=== PATIENT | female | born 1955 | race Caucasian/White ===

== ENCOUNTER 2021-12-21 08:43 | Outpatient (REF) | payer OTHER, SELFPAY ==
--- NOTE | ~2021-12-21 | MM_ITS ---
EXAMINATION: MM SCREENING DIGITAL BREAST TOMOSYNTHESIS, BILATERAL CLINICAL INFORMATION: Screening. Asymptomatic. The lifetime risk of breast cancer based on the Tyrer-Cuzick Model is 4.3%. COMPARISON: Mammography: None TECHNIQUE: Digital breast tomosynthesis is performed in both the craniocaudal and mediolateral oblique views along with computer-aided detection (CAD). Synthesized 2D images are generated from the tomosynthesis. FINDINGS: There are scattered areas of fibroglandular density (ACR BI-RADS breast composition Category b). About the upper outer aspect of the left breast approximately 6 cm from the nipple there is an approximately 4 x 3 mm circumscribed density for which ultrasound is recommended. No suspicious dominant mass or clustered microcalcifications are identified within the right breast. MM/MM tomosynthesis screening BI IMPRESSION: Left breast density for which ultrasound is recommended. ASSESSMENT: BI-RADS 0: Incomplete - Need Additional Imaging Evaluation. RECOMMENDATION: Ultrasound upper outer aspect of the left breast. Radiology department staff will contact the patient for additional imaging.
== END 2021-12-21 08:44 | disposition home or self-care (01) ==
LOC: HO.MAMMO 08:43
PROVIDERS: Visit Provider Obstetrics & Gynecology
DX: Z12.31 Encounter for screening mammogram for malignant neoplasm of breast (principal)
CPT/HCPCS: 77063; 77067

== ENCOUNTER 2022-01-01 12:42 | Outpatient (REF) | payer OTHER, SELFPAY ==
--- NOTE | ~2022-01-01 | US_ITS ---
EXAMINATION: US DIAGNOSTIC ULTRASOUND BREAST, LEFT CLINICAL INFORMATION: Tiny circumscribed nodule mid upper outer left breast on screening mammography. TC score 4%. COMPARISON: Mammography 12/21/2021. TECHNIQUE: Ultrasound of the upper outer left breast is performed using grayscale imaging and color Doppler without and with harmonics. FINDINGS: There is a tiny benign intramammary node corresponding to the finding on mammography upper-outer left breast 2:00 position 6 cm from nipple measuring just under 4 mm. This shows normal sadia architecture and normal sadia color flow pattern. Remainder of the targeted area shows no cystic or solid mass or architectural abnormality. Results are discussed with the patient at time of visit. US/US breast LT limited IMPRESSION: Incidental small intramammary node upper outer left breast corresponding to recent mammography. ASSESSMENT: BI-RADS 2: Benign RECOMMENDATION: Routine annual mammography screening. This patient's information was entered into a reminder system with a target due date for their next mammogram.
== END 2022-01-01 12:43 | disposition home or self-care (01) ==
LOC: HO.MAMMO 12:42
PROVIDERS: Visit Provider Obstetrics & Gynecology
DX: N63.21 Unspecified lump in the left breast, upper outer quadrant (principal)
CPT/HCPCS: 76642

== ENCOUNTER 2022-12-27 09:39 | Outpatient (REF) | payer OTHER, SELFPAY ==
--- NOTE | ~2022-12-27 | MM_ITS ---
EXAMINATION: MM SCREENING DIGITAL BREAST TOMOSYNTHESIS, BILATERAL CLINICAL INFORMATION: Screening. Asymptomatic. The lifetime risk of breast cancer based on the Tyrer-Cuzick Model is 4%. COMPARISON: Mammography: 12/21/2021, outside mammography 10/11/2020, 10/10/2019, 09/23/2018 ([facility], [place], [place]). TECHNIQUE: Digital breast tomosynthesis is performed in both the craniocaudal and mediolateral oblique views along with computer-aided detection (CAD). Synthesized 2D images are generated from the tomosynthesis. FINDINGS: There are scattered areas of fibroglandular density (ACR BI-RADS breast composition Category b). The left breast is similar to prior studies. There is small intramammary node again seen mid upper outer left breast. No developing density. Neither breast shows abnormal calcifications. The bilateral axilla and skin contours are unremarkable. Right breast has scattered parenchymal asymmetries central outer anterior breast, more conspicuous on current study, likely related to shifting fibroglandular tissue. Patient will be recalled for additional imaging to exclude developing density. MM/MM tomosynthesis screening BI IMPRESSION: Right: -Scattered parenchymal asymmetries anterior central outer breast, likely shifting fibroglandular tissue related to positioning. Left: -No mammographic evidence of malignancy. ASSESSMENT: BI-RADS 0: Incomplete - Need Additional Imaging Evaluation RECOMMENDATION: 1. Additional views right breast (spot CC, spot MLO, standard ML). 2. Targeted ultrasound if warranted after review of the additional views. 3. Radiology department staff will contact the patient for additional imaging. This patient's information was entered into a reminder system with a target due date for their next mammogram.
== END 2022-12-27 09:40 | disposition home or self-care (01) ==
LOC: HO.MAMMO 09:39
PROVIDERS: PCP Internal Medicine Hypertension Specialist; Visit Provider Internal Medicine Hypertension Specialist
DX: Z12.31 Encounter for screening mammogram for malignant neoplasm of breast (principal)
CPT/HCPCS: 77063; 77067

== ENCOUNTER 2023-01-01 09:08 | Outpatient (REF) | payer OTHER, SELFPAY ==
--- NOTE | ~2023-01-01 | MM_ITS ---
EXAMINATION: MM DIAGNOSTIC DIGITAL BREAST TOMOSYNTHESIS, RIGHT CLINICAL INFORMATION: Recall from screening for scattered parenchymal asymmetries anterior central outer right breast, likely shifting fibroglandular tissue related to positioning. COMPARISON: Prior mammography exams, most recent 12/27/2022. TECHNIQUE: Digital breast tomosynthesis is performed. 2D images are generated from the tomosynthesis. The following views are obtained: Spot CC, spot MLO, standard ML. FINDINGS: There are scattered areas of fibroglandular density (ACR BI-RADS breast composition Category b). The additional views show no interval mass or architectural abnormality or developing density. There are no significant changes from prior studies. Results are discussed with the patient at time of visit. MM/MM tomosynthesis added views R IMPRESSION: Additional views show no significant changes from prior studies. ASSESSMENT: BI-RADS 2: Benign RECOMMENDATION: Routine annual mammography screening. This patient's information was entered into a reminder system with a target due date for their next mammogram.
== END 2023-01-01 09:09 | disposition home or self-care (01) ==
LOC: HO.MAMMO 09:08
PROVIDERS: PCP Internal Medicine; Visit Provider Internal Medicine
DX: R92.8 Other abnormal and inconclusive findings on diagnostic imaging of breast (principal)
CPT/HCPCS: 77061; 77065

== ENCOUNTER 2023-12-31 10:05 | Outpatient (REF) | payer OTHER, SELFPAY | END 2023-12-31 10:06 | disposition home or self-care (01) | LOC: HO.MAMMO 10:05 | PROVIDERS: PCP Internal Medicine; Visit Provider Internal Medicine Hypertension Specialist | DX: Z12.31 Encounter for screening mammogram for malignant neoplasm of breast (principal) | CPT/HCPCS: 77063; 77067 ==

== ENCOUNTER → 2023-12-31 10:30 | Outpatient (BNV) | payer OTHER, SELFPAY | PROVIDERS: PCP Internal Medicine; Visit Provider Radiology Diagnostic Radiology | DX: Z12.31 Encounter for screening mammogram for malignant neoplasm of breast (principal) | CPT/HCPCS: 77063; 77067 ==

== ENCOUNTER 2024-05-27 15:39 | Outpatient (AMB) | payer OTHER, SELFPAY ==
[2024-05-27 15:55] VITALS: BP 130/63; PULSE 67; RESP 13; O2SAT 98
--- NOTE | 2024-05-27 15:55 | A.OFFPC_ITS ---
Vital Signs 05/27/24 15:55 Height 5 ft 2.5 in BP 130/63 Blood Pressure Location Rt brachial Position Sitting Respiration 13 Pulse 67 Pulse Source Pulse Oximeter Pulse Oximetry (%) 98 Oxygen Delivery Method Room Air Intake Visit Reasons: Annual PH Intake Note: Patient reports she is here to transfer from [facility] to [facility] [place]. Patient would like to discuss allergies. 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 Required: No Accompanied by: Self / Same As Patient Allergies losartan [From Cozaar] Allergy (Unknown, Verified 05/27/24 12:56) Unknown Tobacco use date assessed: 05/27/24 Fall risk assessment: No Falls in past year Last assessed Fall Risk: 05/27/24 Dental Screening Dental Screen Date: 05/27/24 Did you have a dental visit in the last 12 months?: Yes Did you have a dental problem in the last 6 months where you did not have access to dental care?: No Was dental information given to patient?: Patient has dentist HPI HPI Comments History of Present Illness Details The patient is a 68 year old female with a past medical history of hypertension, CKD stage 2, osteopenia, hld, borderline abnormal TFTs, presenting for follow up Hypertension: On hctz 12.5 mg daily Allergies/RAD: stable. Doing well on zyrtec. Required azithromycin, prednisone, albuterol in February. DXA 06/2023. Previously took fosamax ROS CONSTITUTIONAL: Denies weight loss, fever and chills. HEENT: Denies changes in vision and hearing. RESPIRATORY: Denies SOB and cough. CV: Denies palpitations and CP GI: Denies abdominal pain, nausea, vomiting and diarrhea. : Denies dysuria and urinary frequency. MSK: Denies new myalgia and joint pain. SKIN: Denies rash and pruritus. NEUROLOGICAL: Denies headache PSYCHIATRIC: Denies recent changes in mood. PHYSICAL EXAM: GENERAL: Alert and oriented x 3. NAD EYES: EOMI. Anicteric. HENT: Moist mucous membranes. No scleral icterus. No cervical lymphadenopathy. LUNGS: Clear to auscultation bilaterally. CARDIOVASCULAR: Regular rate and rhythm. No murmur. No JVD. ABDOMEN: Soft, non-tender +bs EXTREMITIES: No edema. Non-tender. SKIN: No rashes or lesions. Warm. NEUROLOGIC: No focal neurological deficits. CN II-XII grossly intact PSYCHIATRIC: Cooperative. Appropriate mood and affect [facility] Medical History Benign fibromatous neoplasm of skin Osteopenia Kidney failure Hypertension Chronic kidney disease Surgical History History of surgical removal of skin lesion Family History Mother Alcoholism Father Dementia Hypertension Cardiovascular disease Sister Hypertension Sister Hypertension Social History Household Members: Children and Other Household Members Other:: 2 Grandchildren Housing: House Patient Tobacco Use Status: Never used Tobacco e-Cigarette/Vaping Use: Never Used service: No Current occupational status: retired Cognitive needs: No Hearing needs: No Vision needs: No Questionnaire PHQ-9 Over the last 2 weeks, how often have you been bothered by any of the following problems? 1. Little interest or pleasure in doing things: not at all 2. Feeling down, depressed, or hopeless: not at all 3. Trouble falling or staying asleep, or sleeping too much: not at all 4. Feeling tired or having little energy: not at all 5. Poor appetite or overeating: not at all 6. Feeling bad about yourself - or that you are a failure or have let yourself or your family down: not at all 7. Trouble concentrating on things, such as reading the newspaper or watching television: not at all 8. Moving or speaking so slowly that other people could have noticed. Or the opposite - being so fidgety or restless that you have been moving around a lot more than usual: not at all 9. Thoughts that you would be better off or of hurting yourself in some way: not at all Total score: 0 Depression Screening Interpretation: Negative (neg) Depression Screening Done: Yes 11940 - PHQ-9 Billing: Yes Source: Developed by Drs. Hector Presley, Ann Rivers, Herve Jackson and colleagues, with an educational dallas from [employer]. Thrive Questionnaire Date Thrive assessed: 05/27/24 I am a: Patient What is your living situation today?: I have a steady place to live Within the past 12 months, did the food you bought not last and you didn't have the money to get more?: Never true Within the past 12 months, did you worry whether your food would run out before you got money to buy more?: Never true Do you have trouble paying for medicines?: No Do you have trouble getting transportation to medical appointments?: No Do you have trouble paying your heating and electricity bill?: No Do you have trouble taking care of your child, family member or friend?: No Do you have trouble with day-to-day activities such as bathing, preparing meals, shopping, managing finances, etc.?: No Are you currently unemployed and looking for a job?: No Are you interested in more education?: No Please select the resources that you would like help with: None Currently or been in a relationship where the following occur: No concerns reported THRIVE Score: 0 AUDIT C Alcohol Use Questionnaire (AUDIT-C) 1. How often do you have a drink containing alcohol?: Never 3. How often do you have six or more drinks on one occasion?: Never Total Score: 0 DIONE-7 AMB Questionnaire DIONE-7 Date DIONE - 7 assessed: 05/27/24 Feeling nervous, anxious, or on edge: 0 = Not at all Not being able to stop or control worryin = Not at all Worrying too much about different things: 0 = Not at all Trouble relaxin = Not at all Being so restless that it is hard to sit still: 0 = Not at all Becoming easily annoyed or irritable: 0 = Not at all Feeling afraid as if something awful might happen: 0 = Not at all Total DIONE-7 score (0-4 normal; 5-9 mild; 10-14 moderate; 15-21 severe): 0 Source: Developed by Drs. Hector Presley, Ann Rivers, Herve Jackson and colleagues, with an educational dallas from [employer]. DIONE-7 Assessment Billing DIONE-7 Assessment Tool: DIONE-7 Assessment 67275 Physical exam (Primary Care) Vital Signs: Last Vital Signs Pulse 67 05/27/24 15:55 Resp 13 05/27/24 15:55 BP 130/63 05/27/24 15:55 Pulse Ox 98 05/27/24 15:55 Oxygen Delivery Method Room Air 05/27/24 15:55 Tobacco/Smoking Status: Tobacco use Status Tobacco use date assessed 05/27/24 05/27/24 16:07 Patient Tobacco Use Status Never used Tobacco 05/27/24 16:07 e-Cigarette/Vaping Use Never Used 05/27/24 16:07 PHQ-9: PHQ-9 Score PHQ-9: Total score 0 05/29/24 05:03 Depression Screening Interpretation: Negative (neg) Thrive Assessment: Date of Thrive Assessment Date Thrive assessed 05/27/24 05/27/24 16:07 Currently or been in a relationship where the following occur: No concerns reported Assessment and Plan Assessment & Plan (1) Chronic kidney disease: Code(s): N18.9 - Chronic kidney disease, unspecified Qualifiers: Chronic kidney disease stage: stage 2 (mild) Qualified Code(s): N18.2 - Chronic kidney disease, stage 2 (mild) (2) Hypertension: Code(s): I10 - Essential (primary) hypertension Qualifiers: Hypertension type: primary hypertension Qualified Code(s): I10 - Essential (primary) hypertension Plan: adequately controlled on current medication Plan Check labs Orders: Orders Complete Blood Count Auto Diff 05/27/24 I10 - Essential (primary) hypertension, N18.9 - Chronic kidney disease, unspecified, R94.6 - Abnormal results of thyroid function studies Comprehensive Met. Panel 05/27/24 I10 - Essential (primary) hypertension, N18.9 - Chronic kidney disease, unspecified, R94.6 - Abnormal results of thyroid function studies TSH reflex Free T4 05/27/24 I10 - Essential (primary) hypertension, N18.9 - Chronic kidney disease, unspecified, R94.6 - Abnormal results of thyroid function studies Medications: New albuterol sulfate 90 mcg/actuation 1 inh inhalation .every 4 hours PRN 8.5 grams 2RF shortness of breath or wheezing 30 days fluticasone propionate 50 mcg/actuation (Allergy Relief (fluticasone)) administer into each nostril 1 spray intranasal BID 16 grams 0RF hydrochlorothiazide 12.5 mg PO DAILY 90 caps 3RF Coding Level of Care Code Est Pt Level 4 (34582) Complex EM visit Add On G2211 Diagnoses Stage 2 chronic kidney disease N18.2 Chronic kidney disease stage: stage 2 (mild) Primary hypertension I10 Hypertension type: primary hypertension Additional Codes DIONE-7 Assessment Billing - DIONE-7 Assessment Tool: DIONE-7 Assessment 36053 ([id number])
== END 2024-05-27 16:37 | disposition home or self-care (01) ==
PROVIDERS: PCP Internal Medicine; Visit Provider Internal Medicine
DX: I12.9 Hypertensive chronic kidney disease with stage 1 through stage 4 chronic kidney disease, or unspecified chronic kidney disease (principal); N18.2 Chronic kidney disease, stage 2 (mild)
CPT/HCPCS: 99214; G2211

== ENCOUNTER 2024-06-03 11:19 | Outpatient (REF) | payer OTHER, SELFPAY ==
[2024-06-03 14:51] LABS: MANUAL DIFF FLAG NO
[2024-06-03 14:53] LABS: Basophils Absolute Auto 0.1 X10*3/uL (0.0-0.2); Basophils Percent Auto 0.9 % (0-2); Eosinophils Absolute Auto 0.5 X10*3/uL (0.0-0.4); Hematocrit 39.8 % (37.0-47.0); Imm Gran Abs Auto 0.02 X10*3/uL (0.00-0.03); Imm Gran Pct Auto 0.2 % (0.0-0.4); Lymphocytes Absolute Auto 3.2 X10*3/uL (1.2-4.9); Lymphocytes Percent Auto 34.9 % (20-40); Mean Corpuscular HGB Conc 32.7 g/dl (31.0-35.0); Mean Corpuscular Hemoglobin 27.8 pg (27.0-33.0); Mean Corpuscular Volume 85.2 fL (80.0-98.0); Mean Platelet Volume 9.7 fL (9.4-12.3); Monocytes Absolute Auto 0.6 X10*3/uL (0.1-1.2); Monocytes Percent Auto 6.8 % (2-11); Neutrophils Absolute Auto 4.7 x10*3/uL (2.0-8.3); Neutrophils Percent Auto 52.2 % (45-73); Platelet Count 398 X10*3/uL (160-400); Red Blood Count 4.67 X10*6/uL (4.20-5.50); Red Cell Distribution Width 13.4 % (11.0-16.0)
[2024-06-03 15:28] LABS: Alanine Aminotransferase 12 U/L (0-31); Albumin Level 4.3 g/dL (3.5-5.0); Alkaline Phosphatase 81 U/L (39-117); Anion Gap 14 (12-20); Aspartate Amino Transferase 18 U/L (5-31); Bilirubin Total 0.3 mg/dL (0.0-1.0); Blood Urea Nitrogen 21 mg/dL (9-16); Calcium 10.5 mg/dL (8.4-10.2); Carbon Dioxide 26 mmol/L (22-29); Chloride 103 mmol/L (96-108); Estimated Glomerular Filt Rate 42; Glucose Random 97 mg/dL (60-115); Sodium 139 mmol/L (135-145); Total Protein 7.8 g/dL (6.5-8.0)
[2024-06-03 15:36] LABS: TSH reflex Free T4 3.11 uIU/mL (0.32-4.0)
== END 2024-06-03 11:20 | disposition home or self-care (01) ==
LOC: HO.WFDLDS 11:19
PROVIDERS: Visit Provider Internal Medicine
DX: I12.9 Hypertensive chronic kidney disease with stage 1 through stage 4 chronic kidney disease, or unspecified chronic kidney disease (principal); R94.6 Abnormal results of thyroid function studies; N18.9 Chronic kidney disease, unspecified
CPT/HCPCS: 36415; 80053; 84443; 85025

== ENCOUNTER 2024-12-13 15:50 | Outpatient (AMB) | payer OTHER, SELFPAY ==
--- NOTE | 2024-12-13 15:58 | MHC.PC.OV ---
Vital Signs 12/13/24 16:03 Height 5 ft 2.5 in Weight 143 lb BMI 25.7 BP 126/74 Blood Pressure Location Rt brachial Position Sitting Respiration 12 Pulse 69 Pulse Source Pulse Oximeter Pulse Oximetry (%) 99 Oxygen Delivery Method Room Air Intake Visit Reasons: AWV Intake Note: Medicare wellness visit Track Manager Required: No Allergies losartan [From Cozaar] Allergy (Unknown, Verified 12/13/24 16:02) Unknown Tobacco use date assessed: 12/13/24 Fall risk assessment: 1 Fall in past year (fell on the ice) Last assessed Fall Risk: 12/13/24 Dental Screening Dental Screen Date: 05/27/24 HPI HPI Comments History of Present Illness Details The patient is a 69 year old female with a past medical history of hypertension, CKD stage 2, osteopenia, hld, borderline abnormal TFTs, presenting for MWV Hypertension: On hctz 12.5 mg daily Allergies/RAD: stable on prn albuterol. Doing well on zyrtec. Required azithromycin, prednisone, albuterol in February. DXA 06/2023. Previously took fosamax. 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 HEENT: Denies changes in vision and hearing. RESPIRATORY: Denies SOB and cough. CV: Denies palpitations and CP GI: Denies abdominal pain, nausea, vomiting and diarrhea. : Denies dysuria and urinary frequency. MSK: Denies new myalgia and joint pain. SKIN: Denies rash and pruritus. NEUROLOGICAL: Denies headache PSYCHIATRIC: Denies recent changes in mood. PHYSICAL EXAM: GENERAL: Alert and oriented x 3. NAD EYES: EOMI. Anicteric. HENT: Moist mucous membranes. No scleral icterus. No cervical lymphadenopathy. LUNGS: Clear to auscultation bilaterally. CARDIOVASCULAR: Regular rate and rhythm. No murmur. No JVD. ABDOMEN: Soft, non-tender +bs EXTREMITIES: No edema. Non-tender. SKIN: No rashes or lesions. Warm. NEUROLOGIC: No focal neurological deficits. CN II-XII grossly intact PSYCHIATRIC: Cooperative. Appropriate mood and affect [facility] Medical History Benign fibromatous neoplasm of skin Osteopenia Kidney failure Hypertension Chronic kidney disease Surgical History History of surgical removal of skin lesion Family History Mother Alcoholism Father Dementia Hypertension Cardiovascular disease Sister Hypertension Sister Hypertension Social History Household Members: Children and Other Household Members Other:: 2 Grandchildren Housing: House Alcohol intake: current Patient Tobacco Use Status: Never used Tobacco e-Cigarette/Vaping Use: Never Used service: No Current occupational status: retired Cognitive needs: No Hearing needs: No Vision needs: No Questionnaire PHQ-9 Over the last 2 weeks, how often have you been bothered by any of the following problems? 1. Little interest or pleasure in doing things: not at all 2. Feeling down, depressed, or hopeless: not at all 3. Trouble falling or staying asleep, or sleeping too much: not at all 4. Feeling tired or having little energy: not at all 5. Poor appetite or overeating: not at all 6. Feeling bad about yourself - or that you are a failure or have let yourself or your family down: not at all 7. Trouble concentrating on things, such as reading the newspaper or watching television: not at all 8. Moving or speaking so slowly that other people could have noticed. Or the opposite - being so fidgety or restless that you have been moving around a lot more than usual: not at all 9. Thoughts that you would be better off or of hurting yourself in some way: not at all Total score: 0 Depression Screening Interpretation: Negative Depression Screening Done: Yes 35273 - PHQ-9 Billing: Yes Source: Developed by Drs. Hector Presley, Ann Rivers, Herve Jackson and colleagues, with an educational dallas from [employer]. Thrive Questionnaire Date Thrive assessed: 12/06/24 I am a: Patient What is your living situation today?: I have a steady place to live Within the past 12 months, did the food you bought not last and you didn't have the money to get more?: Never true Within the past 12 months, did you worry whether your food would run out before you got money to buy more?: Never true Do you have trouble paying for medicines?: No Do you have trouble getting transportation to medical appointments?: No Do you have trouble paying your heating and electricity bill?: No Do you have trouble taking care of your child, family member or friend?: No Do you have trouble with day-to-day activities such as bathing, preparing meals, shopping, managing finances, etc.?: No Are you currently unemployed and looking for a job?: No Are you interested in more education?: No Please select the resources that you would like help with: None Currently or been in a relationship where the following occur: No concerns reported THRIVE Score: 0 AUDIT C Alcohol Use Questionnaire (AUDIT-C) 1. How often do you have a drink containing alcohol?: Never 2. How many drinks containing alcohol do you have on a typical day when you are drinking?: 1 or 2 3. How often do you have six or more drinks on one occasion?: Never Total Score: 0 DIONE-7 AMB Questionnaire DIONE-7 Date DIONE - 7 assessed: 12/13/24 Feeling nervous, anxious, or on edge: 0 = Not at all Not being able to stop or control worryin = Not at all Worrying too much about different things: 0 = Not at all Trouble relaxin = Not at all Being so restless that it is hard to sit still: 0 = Not at all Becoming easily annoyed or irritable: 0 = Not at all Feeling afraid as if something awful might happen: 0 = Not at all Total DIONE-7 score (0-4 normal; 5-9 mild; 10-14 moderate; 15-21 severe): 0 Source: Developed by Drs. Hector Presley, Ann Rivers, Herve Jackson and colleagues, with an educational dallas from [employer] DIONE-7 Assessment Billing DIONE-7 Assessment Tool: DIONE-7 Assessment 48653 Physical exam (Primary Care) Vital Signs: Last Vital Signs Pulse 69 12/13/24 16:03 Resp 12 12/13/24 16:03 BP 126/74 12/13/24 16:03 Pulse Ox 99 12/13/24 16:03 Oxygen Delivery Method Room Air 12/13/24 16:03 BMI result Body Mass Index 25.7 Tobacco/Smoking Status: Tobacco use Status Tobacco use date assessed 12/13/24 12/13/24 16:09 Patient Tobacco Use Status Never used Tobacco 12/13/24 16:16 e-Cigarette/Vaping Use Never Used 12/13/24 16:16 PHQ-9: PHQ-9 Score PHQ-9: Total score 0 12/13/24 16:17 Depression Screening Interpretation: Negative Thrive Assessment: Date of Thrive Assessment Date Thrive assessed 12/06/24 12/13/24 16:00 Currently or been in a relationship where the following occur: No concerns reported Coding Level of Care Code Est Pt Level 4 (79085) Diagnoses Encounter for annual wellness visit (AWV) in Medicare patient Z00.00 Primary hypertension I10 Hypertension type: primary hypertension Additional Codes DIONE-7 Assessment Billing - DIONE-7 Assessment Tool: DIONE-7 Assessment 61742 ([id number]) PHQ-9 - 36604 - PHQ-9 Billing: Yes ([id number]) Assessment & Plan Assessment & Plan (1) Encounter for annual wellness visit (AWV) in Medicare patient: Code(s): Z00.00 - Encounter for general adult medical examination without abnormal findings Category: Medical Plan: see HPI No concerns identified for AWV (2) Hypertension: Code(s): I10 - Essential (primary) hypertension Category: Medical Qualifiers: Hypertension type: primary hypertension Qualified Code(s): I10 - Essential (primary) hypertension Plan: continue current medications Low salt diet Orders: Orders XR DEXA axial skeleton 6 Months M85.80 - Other specified disorders of bone density and structure, unspecified site Complete Blood Count Auto Diff 12/13/24 I10 - Essential (primary) hypertension, M85.80 - Other specified disorders of bone density and structure, unspecified site, N18.2 - Chronic kidney disease, stage 2 (mild), Z13.0 - Encounter for screening for diseases of the blood and blood-forming organs and certain disorders involving the immune mechanism Hemoglobin A1c 12/13/24 I10 - Essential (primary) hypertension, M85.80 - Other specified disorders of bone density and structure, unspecified site, N18.2 - Chronic kidney disease, stage 2 (mild), Z13.0 - Encounter for screening for diseases of the blood and blood-forming organs and certain disorders involving the immune mechanism MM screening mammo BI 12/13/24 Z12.31 - Encounter for screening mammogram for malignant neoplasm of breast Comprehensive Met. Panel 12/13/24 I10 - Essential (primary) hypertension, M85.80 - Other specified disorders of bone density and structure, unspecified site, N18.2 - Chronic kidney disease, stage 2 (mild), Z13.0 - Encounter for screening for diseases of the blood and blood-forming organs and certain disorders involving the immune mechanism Lipid Panel 12/13/24 I10 - Essential (primary) hypertension, M85.80 - Other specified disorders of bone density and structure, unspecified site, N18.2 - Chronic kidney disease, stage 2 (mild), Z13.0 - Encounter for screening for diseases of the blood and blood-forming organs and certain disorders involving the immune mechanism TSH reflex Free T4 12/13/24 I10 - Essential (primary) hypertension, M85.80 - Other specified disorders of bone density and structure, unspecified site, N18.2 - Chronic kidney disease, stage 2 (mild), Z13.0 - Encounter for screening for diseases of the blood and blood-forming organs and certain disorders involving the immune mechanism Medications: Refilled albuterol sulfate 90 mcg/actuation 1 inh inhalation .every 4 hours 30 days PRN 8.5 grams 2RF shortness of breath or wheezing hydrochlorothiazide 12.5 mg PO DAILY 90 caps 3RF fluticasone propionate 50 mcg/actuation (Allergy Relief (fluticasone)) administer into each nostril 1 spray intranasal BID 16 grams 3RF
[2024-12-13 16:03] VITALS: BP 126/74; PULSE 69; RESP 12; O2SAT 99; BMI 25.7
--- OUTSIDE RECORDS SUMMARY | 2024-12-13 19:11 | XMS_ITS | Patient Health Record ---
[facility] Organization [facility] Address [address] [place] [address] [address] [place] [address] Care Team Providers Care Filler Room Attendant Name Role Phone Luna NGUYEN MD, YESSI Primary Care Provider PIERRE Tong Unavailable [phone] Allergies Allergen (clinical drug ingredient) Drug/Non Drug Allergy documented on EMR Reaction Allergy Type Onset Date Status losartan Cozaar Unknown Drug Allergy Active Reason For Referral No Information Medications Medication SIG (Take, Route, Frequency, Duration) Notes Start Date End Date Status Fluticasone Propionate 50 MCG/ACT 1 spray in each nostril Nasally As needed Prn Active hydroCHLOROthiazide 12.5 MG 1 capsule in the morning Orally Once a day for 30 day(s) Active Social History Tobacco Use: Social History Observation Description Date Details (start date - stop date) Never Smoker NA - NA Tobacco Use/Smoking Question Answer Notes Are you a nonsmoker Alcohol Screen (Audit-C) Question Answer Notes Did you have a drink containing alcohol in the p ast year? No Points 0 Interpretation Negative Sexual History Question Answer Notes Had sex in the past 12 months (vaginal, oral, or anal)? No Problems Problem Type SNOMED Code ICD Code Onset Dates Problem Status W/U Status Risk Notes Problem Essential hypertension (48790265) Essential (primary) hypertension (I10) Active confirmed Problem Chronic kidney disease stage 2 (877687423) Chronic kidney disease, stage 2 (mild) (N18.2) Active confirmed Problem COVID-19 (347285073) COVID-19 (U07.1) Active confirmed Plan Of Treatment Pending Test Test Name Order Date MM Digital Screening Mammogram 3D 2021 MM Digital Screening Mammogram 3D 2023 Insurance Providers Payer Name Payer Address Payer Phone Subscriber Number Group Number Insured Name Patient Relationship to Insured Coverage Start Date Coverage End Date [employer]ARE [address] [address] [place] [address] [id number] PPO ROBERT OBRIEN Self - patient is the insured Program [address] [address] [place] [address] [phone] [id number] ROBERT OBRIEN Self - patient is the insured MEDICARE [address] [facility] [place] [id number] ROBERT OBRIEN Self - patient is the insured Medical (General) History Medical History History ICD Code Essential (primary) hypertension I10 Chronic kidney disease, stage 2 (mild) N 18.2 COVID-19 U07.1 Surgical History Surgery Date(Month/Year) Colonoscopy 12/2020 Hospitalization History Reason Date(Month/Year) 2 Vaginal Deliveries
--- OUTSIDE RECORDS SUMMARY | 2024-12-13 19:11 | XMS_ITS | Data Portability ---
Author Organization [facility], [id number] Address [address] [place] [address] Assessment No assessment recorded. Plan of Treatment Reminders Order Date Submit Date Provider Last Modified By Organization Details Last Modified Time Details Appointments None recorded. Lab pap, IG + HPV - 2019 020 DBA_PATCH_ [id number] [facility] ([facility], [address] [place] [address], [address], 03:37:50 pap, IG + HPV 2017 018 DBA_PATCH_ [id number] [facility] ([facility], [address] [place] [address], [address], 03:36:07 Referral None recorded. Procedures None recorded. Surgeries None recorded. Imaging None recorded. Medication Orders alendronat e 70 mg tablet 2020 021 INTERFACE [id number], [address], [place], [place], [id number], 17:40:09 Patient TargetsNo targets recorded. Patient Instructions Encounter Date Encounter Id Patient Instructions Last Modified By Organization Details Last Modified Time 03/29/2019 [id number] preventing osteoporosis: care instructions [email or web address] Not available 03/29/2019 09:37:26 10/10/2019 [id number] breast self-exam : care instructions ndandrea Not available 10/10/2019 10:55:12 learning about breast cancer screening ndandrea Not available 10/10/2019 10:55:12 10/11/2020 [id number] breast self-exam : care instructions ndandrea Not available 10/11/2020 12:08:19 learning about breast cancer screening ndandrea Not available 10/11/2020 12:08:19 05/13/2021 [id number] preventing osteoporosis: care instructions ndandrea Not available 05/13/2021 13:05:47 Reason for Referral None Reported. Results Created Date Observation Date Name Description Value Unit Range Abnormal Flag Note LastModifiedBy Organization Detail LastModifiedTime 09/23/20 18 09/24/2018 pap, IG + HPV interpretati on NIL NEGAT DEANNE FOR INTRA EPITH ELIAL LESIO N AND MALIG SERGEY . Not Available [facility] ([facility]) [address] [place], [address], 09/27/2018 06:06:55 09/23/20 18 09/24/2018 pap, IG + HPV category: NIL Negat deanne for Intra epith elial Lesio n Not Available [facility] ([facility]) [address] [place], [address], 09/27/2018 06:06:55 09/23/20 18 09/24/2018 pap, IG + HPV adequacy: ENDO Satis facto ry for evalu ation . Endoc ervic al and/o r squam ous metap lasti c cells (endo cervi iraida compo nent) are prese nt. Not Available [facility] ([facility]) [address] [place], [address], 09/27/2018 06:06:55 09/23/20 18 09/24/2018 pap, IG + HPV clinician provided ICD10: Sherman gonzalez Z12.4 Not Available [facility] ([facility]) [address] [place], [address], 09/27/2018 06:06:55 09/23/20 18 09/24/2018 pap, IG + HPV performed by: Sherman mckeon, Cytot more gonzalez (ASCP ) Not Available [facility] ([facility]) [address] [facility], [place], [address], 09/27/2018 06:06:55 09/23/20 18 09/24/2018 pap, IG + HPV cytology history: Commen t Date LCA Speci men ID PAP Test Resul t HPV Test Resul t 09/17 348-G 74-00 11-0 83548 5 NIL 01175 1 N 09/15 347-G 74-00 40-0 53111 5 NIL [address] 1 P 09/15 347-G 74-00 40-0 49331 1 N 09/15 347-G 74-00 40-0 93411 2 N 08/27 327-G 74-00 43-0 08954 5 NIL [address] 1 N 08/13 317-G 74-00 12-0 65340 3 NIL 28861 3 N 07/24 293-G 74-00 34-0 43603 4 NIL Not Available [facility] ([facility]) [address] [facility], [place], [address], 09/27/2018 06:06:55 09/23/20 18 09/24/2018 pap, IG + HPV note: Commen t The Pap smear is a scree ross test desig ezequiel to aid in the detec tion of catie ligna nt and malig nant condi tions of the uteri ne cervi x. It is not a diagn ostic proce dure and shoul d not be used as the sole means of detec ting cervi iraida cance r. Both false -posi tive and false -nega tive repor ts do occur . Not Available [facility] ([facility]) [address] [place], [address], 09/27/2018 06:06:55 09/23/20 18 09/24/2018 pap, IG + HPV test methodology: Commen t This liqui d based ThinP rep(R ) pap test was scree ezequiel with the use of an image guide d systfrench m. Not Available [facility] ([facility]) [address] [facility] [place], [address], 09/27/2018 06:06:55 09/23/20 18 09/26/2018 pap, IG + HPV HPV aptima Negati ve negati ve This test detec ts fourt een high- risk HPV types (16/1 8/31/ 33/35 /39/4 5/ 51/52 /56/5 8/59/ 66/68 ) witho ut diffe renti ation . Not Available [facility] ([facility]) [address] [facility], [place], [address], 09/27/2018 06:06:55 10/10/19 20 10/11/2019 pap, IG + HPV interpretati on NILM NEGAT DEANNE FOR INTRA EPITH ELIAL LESIO N OR MALIG SERGEY . Not Available [facility] ([facility]) [address] [facility], [place], [address], 10/12/2019 07:38:38 10/10/19 20 10/11/2019 pap, IG + HPV category: NIL Negat deanne for Intra epith elial Lesio n Not Available [facility] ([facility]) [address] [facility], [place], [address], 10/12/2019 07:38:38 10/10/1910/11/2019 pap, IG + HPV adequacy: ENDO Satis facto ry for evalu ation . Endoc ervic al and/o r squam ous metap lasti c cells (endo cervi iraida compo nent) are prese nt. Not Available [facility] ([facility]) [address] [facility], [place], [address], 10/12/2019 07:38:38 10/10/1910/11/2019 pap, IG + HPV clinician provided ICD10: COMMEN T R87.8 10 Not Available [facility] ([facility]) [address] [place], [address], 10/12/2019 07:38:38 10/10/1910/1110/11/2019 pap, IG + HPV performed by: SHERMAN sloan Cytot more gonzalez (ASCP ) Not Available [facility] ([facility]) [address] [place], [address], 10/12/2019 07:38:38 10/10/19 20 10/11/2019 pap, IG + HPV cytology history: COMMEN T Date LCA Speci men ID PAP Test Resul t HPV Test Resul t 09/23 354-G 74-00 52-0 03891 5 NIL 91285 1 N 09/17 348-G 74-00 11-0 02568 5 NIL 77228 1 N 09/15 347-G 74-00 40-0 23405 5 NIL 78724 1 P 09/15 347-G 74-00 40-0 83342 1 N 09/15 347-G 74-00 40-0 45025 2 N 08/27 327-G 74-00 43-0 88176 5 NIL 86547 1 N 08/13 317-G 74-00 12-0 12529 3 NIL 06202 3 N Not Available [facility] ([facility]) [address] [facility], [place], [address], 10/12/2019 07:38:38 10/10/19 20 10/11/2019 pap, IG + HPV note: SHERMAN T The Pap smear is a scree ross test desig ezequiel to aid in the detec tion of catie ligna nt and malig nant condi tions of the uteri ne cervi x. It is not a diagn ostic proce dure and shoul d not be used as the sole means of detec ting cervi iraida cance r. Both false -posi tive and false -nega tive repor ts do occur . Not Available [facility] ([facility]) [address] [place], [address], 10/12/2019 07:38:38 10/10/19 20 10/11/2019 pap, IG + HPV test methodology: COMMEN T This liqui d based ThinP rep(R ) pap test was danyelle nieves with the use of an image guide brigida angeles Not Available [facility] ([facility]) [address] [facility], [place], [address], 10/12/2019 07:38:38 10/10/19 20 10/12/2019 pap, IG + HPV HPV aptima NEGATI VE negati ve This nucle ic acid ampli ficat ion test detec ts fourt een high- risk HPV types (16,1 8,31, 33,35 ,39,4 5,51, 52,56 ,58,5 9,66, 68) witho ut diffe renti ation . Not Available [facility] ([facility]) [address] [facility], [place], [address], 10/12/2019 07:38:38 09/29/20 18 09/23/2018 MAMMO , scree ross, tomos ynthe sis, bilat eral No observ ation record ed. [email or web address] [id number] [address] [facility] [employer] [place], [address], 10/06/2018 08:37:54 09/29/20 18 09/23/2018 MAMMO , scree ross, tomos ynthe sis, bilat eral No observ ation record ed. [email or web address] [id number] [address] [employer], [address], 09/29/2018 14:56:08 03/01/20 19 03/01/2019 DEXA, axial skele ton No observ ation record ed. [email or web address] Not Available 03/28 13:47:06 10/11/19 20 10/10/2019 MAMMO , scree ross, tomos ynthe sis, bilat eral No observ ation record ed. [email or web address] [id number] [address] [employer], [address], 10/12/2019 15:03:53 10/11/19 20 10/10/2019 MAMMO , scree ross, tomos ynthe sis, bilat eral No observ ation record ed. [email or web address] [id number] [address], [place], [address], 10/11/2019 15:53:13 10/16/19 21 10/16/2020 MAMMO , scree ross, tomos ynthe sis, bilat eral No observ ation record ed. [email or web address] [id number] t Mamm[address], [place], [address], 10/17/2020 11:45:36 10/16/19 21 10/16/2020 MAMMO , scree ross, tomos ynthe sis, bilat eral No observ ation record ed. [email or web address] [id number] t Mamm[address], [place], [address], 10/17/2020 11:52:06 03/05/20 21 03/05/2021 DEXA, axial skele ton No observ ation record ed. [email or web address] In-House Results For Internal Use Only, Do Not Delete/merge, [id number] 05/13/2021 13:23:37 Result Notes Documentation Provider Name and Address Organization Details Recorded Time Dexa, Axial Skeleton : Physician Comment about Study Is this an adequate study: Yes Reason for study: Screening for osteoporosis Comparison: 2010, 2014, 2016 Diagnosis (based on WHO criteria) Diagnosis: Osteopenia Physician Recommendations Recommendations for lifestyle modifications: CALCIUM, VITAMIN D, exercise. Consider checking calcium and vitamin D levels if this has not been done already. Recommendations for medications: Medications should be considered at this time. This is based on FRAX. Based on FRAX medicine is recommended if the risk of major osteoporotic fracture is >19% or the risk of hip fracture is > 3%. She reports use of Fosamax. She might continue that or change to another agent. Recommendations for follow up: DEXA on the same machine in 2 years. Nidia Loyola (TERMED) null, [facility] 03/28/2019 13:47:06 Dexa, Axial Skeleton : Bone density Bone Density Interpretation: osteopenia Lowest T-score: -2.1 Femur neck Percentage of change from last bone density: 6% increase Frax Score: Not applicable due to prior/current medical therapy Recommended treatment: Optimize dietary calcium and vitamin D intake to 5920-9928 mg daily, Weight-bearing exercise for 30 minutes 3 times weekly, This is an adequate study. Provider Reading Study: Dr. Bairon Andres Followup planned: Repeat DEXA 2 years BAIRON WESTON MD [address] [facility] [place],[facility] [place], [address], [facility] 05/13/2021 13:23:37 Problems Name Problem SNOMED Code Status Onset Date Resolution Date Notes Provider Name and Address Organization Details Recorded Time HPV - Human papilloma virus test positive Active 2015 Neg Mayte Desir [facility] 6 10:10:09 Osteopeni a 731334363 Active 201003/05/21 COBG DEXA - OSTEOPENIA - Tlumbarspi ne=-1.4 , Tneckoffem ur=-2.1 , Ttotalhip= -0.5 (When this study is compared to the study done 03/01/19 there is a statistica lly significan t increase of +6.7% in the left hip) FRAX On bisphospho nates (started in 02/2015) BAIRON WESTON MD [address] [facility] [place] [facility] [place], [address] , [facility] 1 16:37:42 Seasonal allergic rhinitis 763780922 Active BAIRON WESTON MD [address] [facility] [place], [address] , [facility] 6 08:15:47 Hypertens deanne disorder 16589558 Active BAIRON WESTON MD [address] [facility] [facility] [place], [address] , [place] [facility] 6 08:22:19 Problem Notes None recorded. Procedures Surgical History Date Name Laterality Status Provider Name and Address Organization Details Recorded Time 10/11/19 21 Date of Last Mammogram completed Kyung Garcia (TERMED) [facility] 10/11/2020 10:48:11 10/10/19 20 Date of Last Pap Smear completed Cinda Castillo(TE RM) [facility] 10/10/2020 10:11:02 08/22/20 14 completed Mary Ann Calderon (TERMED) [facility] 08/22/2014 09:10:09 10/05/19 13 Date of Last Colonoscopy completed Carli Cole [facility] 09/23/2018 10:19:56 10/05/19 12 GI- Colonoscopy completed BAIRON WESTON MD [address] [place] [address],[facility], [place], [address], [facility] 08/22/2014 09:52:40 08/06/20 11 completed Ale Angelo (TERMED) [facility] 08/21/2014 11:37:54 Surgery-other completed Ale villegas (TERMED) [facility] 08/21/2014 11:37:53 ENT-Adenoidecto my/Tonsillectom y completed Ale Angelo (TERMED) [facility] 08/21/2014 11:37:53 Imaging Results Imaging Date Name Status LastModified by Organiz ation Details LastModified Time 09/23/2018 MAMMO, screening, tomosynthesis, bilateral completed [email or web address] [id number] [address] [place], [address], 10/06/2018 08:37:54 09/23/2018 MAMMO, screening, tomosynthesis, bilateral completed [email or web address] [id number] [address] [place], [address], 09/29/2018 14:56:08 03/01/2019 DEXA, axial skeleton completed [email or web address] Information not available 03/28/2019 13:47:06 10/10/2019 MAMMO, screening, tomosynthesis, bilateral completed [email or web address] [id number] [address] [facility], [place], [address], 10/12/2019 15:03:53 10/10/2019 MAMMO, screening, tomosynthesis, bilateral completed [id number] [address], [place], [address], 10/11/2019 15:53:13 10/16/2020 MAMMO, screening, tomosynthesis, bilateral completed [email or web address] [id number] [address]amm[address], [place], [address], 10/17/2020 11:45:36 10/16/2020 MAMMO, screening, tomosynthesis, bilateral completed [email or web address] [id number] [address]amm[address], [place], [address], 10/17/2020 11:52:06 03/05/2021 DEXA, axial skeleton completed [email or web address] In-House Results For Internal Use Only, Do Not Delete/merge, [id number] 05/13/2021 13:23:37 Procedure Notes None recorded. Medical Equipment None Reported. Allergies Allergen ID Allergen Name Allergen Category Reaction Reaction Severity Criticality Documentation Date Start Date Code Code System Note Provider Name and Address Organization Details Recorded Time 972577 Cozaar medicatio n Not available Not available Not available 08/22/2014 59788 8 RxNorm Mary Ann Calderon (TERMED) [place], [place] - [facility] 4 09:10:09 Medications Name Sig Start Date Stop Date Status Note LastModified by Organization Details LastModified Time amoxicillin 500 mg capsule 09/17 completed Not Available Not Available Not Available clindamycin HCl 300 mg capsule TK ONE C PO TID FOR 30 DAYS 09/17 completed Not Available Not Available Not Available azithromycin 250 mg tablet active Not Available Not Available Not Available ibuprofen 800 mg tablet TK 1 T PO TID 09/17 completed Not Available Not Available Not Available hydrocodone 5 mg-acetamino phen 325 mg tablet 09/17 completed Not Available Not Available Not Available bacitracin 500 unit/gram eye ointment active Not Available Not Available Not Available prednisone 20 mg tablet active Not Available Not Available Not Available alendronate 70 mg tablet TAKE 1 TABLET BY MOUTH EVERY WEEK active Not Available Not Available No t Available ciprofloxaci n 500 mg tablet 10/10 completed Not Available Not Available Not Available aspirin 81 mg tablet,delay ed release Take 1 tablet every day by oral route. 05/13 completed Not Available Not Available Not Available ranitidine 150 mg tablet active Not Available Not Available Not Available hydrochlorot hiazide 12.5 mg capsule TAKE 1 CAPSULE BY MOUTH DAILY IN THE MORNING active Not Available Not Available No t Available felodipine ER 10 mg tablet,exten ded release 24 hr TK 1 T PO QD 09/17 completed Not Available Not Available Not Available methylpredni solone 4 mg tablets in a dose pack 09/17 completed Not Available Not Available Not Available fluticasone propionate 50 mcg/actuatio n nasal spray,suspen nava SHAKE LIQUID AND USE 2 SPRAYS IN EACH NOSTRIL DAILY active Not Available Not Available No t Available famotidine 10/11 completed Not Available Not Available Not Available Calcium 500 active Not Available Not A vailable Not Available Multi Vitamin active Not Available Not Available Not Available Vitals Date Recorded Body weight Body mass index (BMI) Body height Heart rate Systolic blood pressure Diastolic blood pressure Systolic blood pressure Diastolic blood pressure Provider Name and Address Organization Details Last Updated DateTime 8 38520.5 2 g 25.7 kg/m2 157.86 cm 67 /min 176 mm[Hg] 73 mm[Hg] 180 mm[Hg] 80 mm[Hg] Carli Cole [facility] 8 10:18:01 Date Recorded Body height Body mass index (BMI) Body weight Heart rate Systolic blood pressure Diastolic blood pressure Provider Name and Address Organization Details Last Updated DateTime 9 157.86 cm 26.2 kg/m2 10346.0 2 g 67 /min 157 mm[Hg] 89 mm[Hg] Cinda flynn(TERM) [facility] 9 09:03:50 Date Recorded Body height Body mass index (BMI) Body weight Heart rate Systolic blood pressure Diastolic blood pressure Provider Name and Address Organization Details Last Updated DateTime 0 157.86 cm 26 kg/m2 75370.7 1 g 88 /min 131 mm[Hg] 80 mm[Hg] Renugoldy Walter TERMED [facility] 0 10:06:14 Date Recorded Body weight Body mass index (BMI) Body height Heart rate Body temperature Systolic blood pressure Diastolic blood pressure Provider Name and Address Organization Details Last Updated DateTime 1 31385.5 2 g 25.7 kg/m2 157.86 cm 86 /min 98.1 [degF] 137 mm[Hg] 87 mm[Hg] Kyung Garcia (TERMED) [facility] 1 11:33:02 Date Recorded Body height Body mass index (BMI) Body weight Body temperature Heart rate Systolic blood pressure Diastolic blood pressure Provider Name and Address Organization Details Last Updated DateTime 1 157.86 cm 26 kg/m2 69532.7 1 g 98.6 [degF] 74 /min 118 mm[Hg] 76 mm[Hg] Carli Cole [facility] 1 12:57:51 Social History Question Answer Notes LastModified by Organizat ion Details LastModified Time Tobacco Smoking Status Former Smoker teenager Micheline Simeon (TERMED) [email or web address], [facility] 09/15/2016 08:50:55 Do You Have An Advance Directive? Yes [email or web address] Information not available 09/23/2018 What Is Your Level Of Alcohol Consumption? None [email or web address] Information not available 08/21/2014 Is Blood Transfusion Acceptable In An Emergency? Yes [email or web address] Information not available 09/23/2018 What Is Your Level Of Caffeine Consumption? Moderate 1 Cup Coffee Daily, 1 Soda Every Other Day Information not available 09/23/2018 Are You Currently Employed? Yes [email or web address] Information not available 09/23/2018 What Type Of Diet Are You Following? REGULAR Eats Healthy [email or web address] Information not available 09/23/2018 Which Illicit Or Recreational Drugs Have You Used? None [email or web address] Information not available 08/21/2014 What Is Your Occupation? [employer] [email or web address] Information not available 08/22/2014 How Many Days In The Past Year Have You Had A Heavy Drinking Consumption (4+ Female, 5+ Male)? 0 Information not available 09/15/2016 History Of Domestic Violence No [email or web address] Information not available 08/21/2014 Country Of [facility] [email or web address] Informat ion not available 09/23/2018 Ethnic Background [email or web address] Information not available 09/23/2018 Marital Status Passed 09/11/11 - Battled Bone Cancer [email or web address] Information not available 08/21/2014 What Was The Date Of Your Most Recent Tobacco Screening? 10/11/2020 [email or web address] Information not available 10/11/2020 Performs Monthly Self-breast Exam? Yes [email or web address] Information not available 09/23/2018 Seat Belts Used Routinely Yes [email or web address] Information not available 08/22/2014 Are You Sexually Active? No Information not available 09/15/2016 Are You Passively Exposed To Smoke? No [email or web address] Information not available 09/23/2018 How Much Tobacco Do You Smoke? No [email or web address] Information not available 08/21/2014 General Stress Level Low [email or web address] Information not available 08/22/2014 How Many Years Have You Smoked Tobacco? 0 [email or web address] Information not available 08/21/2014 Do You Have Symptoms Associated With Zika Virus (fever, Rash, Joint Pain, Or Conjunctivitis)? No Information not available 09/15/2016 Have You Recently (within The Last 12 Weeks, Or During A Current ) Traveled To Or Lived In A Zika-affected Area? No Information not available 09/15/2016 Sex: Unknown Functional Status Question Answer Note LastModified by Organizat ion Details LastModified Time What is your exercise level? Moderate Walks 30 minutes daily [email or web address] Information not available 08/21/2014 Mental Status None recorded. Family History Relationship Description Onset Age of this Age Resolved Age Notes LastModified by Organization Details LastModified Time Paternal Grandmother Osteoporosis [email or web address] Not available 04/29/2016 08:14:55 Paternal Grandfather Heart disease [email or web address] Not available 2015 08:14:55 Father Heart disease [email or web address] Not available 2015 08:14:55 Father Hypothyroidi sm [email or web address] Not available 09/15 08:33:27 Medical History Condition Response Neurology- Dementia Y Endocrinology- Osteopenia Y Cardiology- Heart Disease Y Cardiology- High Blood Pressure Y Urology-Other Y Gynecological History Statement/Question Response Age at first intercourse 21 Date of Last Mammogram 10/11/2020 Date of LMP HPV Test Negative 08/22/2014 Date of last bone density 03/05/21 Age at Menopause 53 Date of Last Colonoscopy 10/05/2012 Total lifetime partners Less than 5 Self Breast Exams? N History of Fibroids N Current Control Method: Menopause 08/27/15 Neg pap/Neg HPV HPV Vaccine Not Applicable Post Menopausal Hormone Therapy User Nev er 08/27/15 Age at Menarche 14 Current Control Method Menopause Age at Menarche: 14 History of Infertility N Sexually Active N History of PCOS N 08/06/2011 N History of Recurrent Ovarian Cysts N Date of Last Pap Smear 10/10/2019 History of Abnormal PAP N History of Endometriosis N Obstetrics History GPAL:G 2 P 2 0 0 2 Type Value Multiple Births 0 Full Term 2 Induced 0 Spontaneous 0 Premature 0 Living 2 Ectopics 0 Total 2 Immunizations Vaccine Type Date Status Note Provider Nam e and Address Organization Details Recorded Time COVID-19, mRNA, LNP-S, PF, 30 mcg/0.3 mL dose 12/06/2020 completed BAIRON WESTON MD [address] [place], [address], [facility] 05/13/2021 13:25:03 COVID-19, mRNA, LNP-S, PF, 30 mcg/0.3 mL dose 12/26/2020 completed BAIRON WESTON MD [address] [place] [address], [address], [facility] 05/13/2021 13:25:15 Past Encounters Encounter ID Performer Location Encounter Start Date Encounter Closed Date Diagnosis/Indication Diagnosis SNOMED-CT Code Diagnosis ICD10 Code Diagnosis Note [id number] Tonia Mullen (TERMED) [id number] [address] [place] [address] 08/22/2014 08:07:29 08/22/2014 10:10:00 Gynecologic examination [id number] Cervical cancer screening guidelines discussed with pt. Pap not done today. Mammograph y done today. Reviewed importance of yearly mammogram and once yearly clinical breast exam. Discussed importance of self knowledge of breasts. Pt encouraged to contact immediatel y if she finds anything so that we can investigat e as needed in a timely fashion. Reviewed the importance of screening colonoscop y. Reviewed the reasoning behind all screening tests which is to catch a cancer or medical problem early when it is most treatable. Also reviewed the opportunit y cost of not having screening done. Discussed importance of exercise and a healthy diet. Staying Healthy sheet given to patient. Reviewed importance of calcium intake, Vitamin D intake, healthy diet and regular aerobic and weight bearing exercise. Osteopenia [id number] COB G 2010 >>> pt will recheck in 2014. [id number] [address] [place] [address] 04/13/2015 09:36:01 04/13/2015 10:43:06 Osteopenia [id number] 2010 >>> 02/19/15 COBG Dexa Tneck=-2.3 , Ttotalhip= -1.1 (7.2%decre ase since 2010), Tlumbarspi ne=-2.5 (9.7% decrease since 2010) Patient has osteopenia . Reviewed T scores in general and patient's T scores from her most recent DEXA scan and all prior scans. Reviewed risk of fracture using WHO FRAX tool. Reviewed importance of Vitamin D intake (1000 IU po daily) and Calcium intake (9258-6507 mg po daily in divided doses throughout the day.) Discussed importance of taking in calcium rich foods as well. We reviewed importance of weight bearing exercises now and for the future. Patient is given internet and other resources for education regarding low bone density diseases. Patient given her T scores in writing and lists of foods that are calcium rich. Reviewed with patient fracture risks and importance of taking care to watch for risk of falls. DEXA scans should be done on the same machine q 2 years. Pt has a sister on bisphospho yonatan and T scores are significan tly decreased from 2010. I have discussed pros and cons of the bisphospho nates and she is interested in trying this. Discussed this medication at length. Pt encouraged to discuss this medication with the pharmacist . Discussed medicine's risks such as esphogitis , atypical femur fracture, jaw surgery dangers. She will return in 2 months for recheck. [id number] [address] [place] [address] 06/18/2015 08:53:29 06/18/2015 10:08:45 Osteopenia [id number] 2010 >>> 02/19/15 COBG Dexa Tneck=-2.3 , Ttotalhip= -1.1 (7.2%decre ase since 2010), Tlumbarspi ne=-2.5 (9.7% decrease since 2010) >>> 04/13/15 Started Fosamax. Patient has osteopenia . Reviewed T scores in general and patient's T scores from her most recent DEXA scan and all prior scans. Reviewed risk of fracture using WHO FRAX tool. Reviewed importance of Vitamin D intake (1000 IU po daily) and Calcium intake (3687-6195 mg po daily in divided doses throughout the day.) Discussed importance of taking in calcium rich foods as well. We reviewed importance of weight bearing exercises now and for the future. Patient is given internet and other resources for education regarding low bone density diseases. Patient given her T scores in writing and lists of foods that are calcium rich. Reviewed with patient fracture risks and importance of taking care to watch for risk of falls. DEXA scans should be done on the same machine q 2 years. Pt has a sister on bisphospho yonatan and T scores are significan tly decreased from 2010. PT doing well on Fosamax. No heartburn. Discussed medicine's risks such as esphogitis , atypical femur fracture, jaw surgery dangers. [id number] BAIRON WESTON MD [id number] [address] [place] [address] 08/27/2015 08:05:24 08/27/2015 09:58:04 Gynecologic examination [id number] Z01.419 Z01.411 Cervical cancer screening guidelines discussed with pt. Mammograph y planned today. Reviewed importance of yearly mammogram and once yearly clinical breast exam. Discussed importance of self knowledge of breasts. Pt encouraged to contact immediatel y if she finds anything so that we can investigat e as needed in a timely fashion. Reviewed the importance of screening colonoscop y. Reviewed the reasoning behind all screening tests which is to catch a cancer or medical problem early when it is most treatable. Also reviewed the opportunit y cost of not having screening done. Discussed importance of exercise and a healthy diet. Staying Healthy sheet given to patient. Reviewed importance of calcium intake, Vitamin D intake, healthy diet and regular aerobic and weight bearing exercise. Screening for malignant neoplasm of cervix [id number] Z12.4 Z11.51 I reviewed the current cervical cancer screening recommenda tions with the patient today. Osteopenia [id number] M85 .80 2010 >>> 02/19/15 COBG Dexa Tneck=-2.3 , Ttotalhip= -1.1 (7.2%decre ase since 2010), Tlumbarspi ne=-2.5 (9.7% decrease since 2010) >>> BONE DENSITY RESULTS 02/19/15 Tneck=-2.3 Ttotalhip= -1.1, Tlumbarspi ne=-2.5 (7% decrease and 9% decrease from 08/15) FRAX 10% and 1.6%.>>>> Started Fosamax. Patient has osteopenia . Reviewed importance of Vitamin D intake (1000 IU po daily) and Calcium intake (5052-9618 mg po daily in divided doses throughout the day.) Discussed importance of taking in calcium rich foods as well. We reviewed importance of weight bearing exercises now and for the future. Reviewed with patient fracture risks and importance of taking care to watch for risk of falls. DEXA scans should be done on the same machine q 2 years. PT doing well on Fosamax. No heartburn. Discussed medicine's risks such as esphogitis , atypical femur fracture, jaw surgery dangers. [id number] Tonia Mullen (TROY) [id number] [address] [place] [address] 04/29/2016 07:45:48 04/29/2016 08:25:13 Osteopenia [id number] M85.80 She is on Fosamax and reports no upset stomach and no burning in the esophagus. She takes it on Thursday morning. 2010 >>> 02/19/15 COBG Dexa Tneck=-2.3 , Ttotalhip= -1.1 (7.2%decre ase since 2010), Tlumbarspi ne=-2.5 (9.7% decrease since 2010) >>> BONE DENSITY RESULTS 02/19/15 Tneck=-2.3 Ttotalhip= -1.1, Tlumbarspi ne=-2.5 (7% decrease and 9% decrease from 08/15) FRAX 10% and 1.6%.>> >>04/13/15 Started Fosamax. Patient has osteopenia . Reviewed importance of Vitamin D intake (1000 IU po daily) and Calcium intake (0289-3828 mg po daily in divided doses throughout the day.) Discussed importance of taking in calcium rich foods as well. We reviewed importance of weight bearing exercises now and for the future. Reviewed with patient fracture risks and importance of taking care to watch for risk of falls. DEXA scans should be done on the same machine q 2 years. PT doing well on Fosamax. No heartburn. Discussed medicine's risks such as esphogitis , atypical femur fracture, jaw surgery dangers. Hypertensive disorder [id number] I10 Pt stopped her antihypert ensive medication s 2 years ago because she reports her physician took her off of them (Dr Price). I reviewed that these numbers today are unacceptab ly high. She now sees the providers at [facility]. She reports she will notify them immediatel y. I have suggested she go over this morning and see if they can see her today. I will provide her with a copy of this note. She reports she takes the BP at home and she reports that her diastolics at home are never over 78, [id number] BAIRON WESTON MD [id number] [address] [place] [address] 09/15/2016 07:53:47 09/15/2016 12:08:47 Gynecologic examination [id number] Z01.411 Z01.419 Mammograph y planned today. Reviewed importance of yearly mammogram and once yearly clinical breast exam. Discussed importance of self knowledge of breasts. Pt encouraged to contact immediatel y if she finds anything so that we can investigat e as needed in a timely fashion. Reviewed colonoscop y guidelines . Reviewed the reasoning behind all screening tests which is to catch a cancer or medical problem early when it is most treatable. Also reviewed the opportunit y cost of not having screening done. Discussed importance of exercise and a healthy diet. Staying Healthy sheet given to patient. Reviewed importance of calcium intake, Vitamin D intake, healthy diet and regular aerobic and weight bearing exercise. Reviewed whether or not contracept ion was needed. Screening for malignant neoplasm of cervix [id number] Z12.4 Z11.51 Cervical cancer screening guidelines discussed with patient. Reviewed that if testing has been normal we can also test for HPV with cervical cytology and if both are negative, in some instances can repeat every 3 years.eulogio . Screening for malignant neoplasm of breast [id number] Z12.39 I reviewed the current breast cancer screening recommenda tions with the patient today. Dietary ma ania surveillance 811685398 Z71.3 Discussed diet and exercise at length with patient. Reviewed general informatio n about carbohydra jerzy, proteins and fats with patient. Discussed sample diets. Reviewed options to assist with nutrition management including nutrition referrals, weight loss programs and apps like [employer] al. Reviewed internet sites which educate regarding nutrition. Discussed importance of exercises which include muscle building and those that help with aerobic exercises. Discussed current recommenda tions regarding exercise including the suggestion that individual s get 150 minutes of exercise weekly. Body mass index 25-29 - overweight 247184106 Z68.25 Osteopenia [id number] M85 .80 She is on Fosamax and reports no upset stomach and no burning in the esophagus. She takes it on Thursday morning. 2010 >>> 02/19/15 COBG Dexa Tneck=-2.3 , Ttotalhip= -1.1 (7.2%decre ase since 2010), Tlumbarspi ne=-2.5 (9.7% decrease since 2010) >>> BONE DENSITY RESULTS 02/19/15 Tneck=-2.3 Ttotalhip= -1.1, Tlumbarspi ne=-2.5 (7% decrease and 9% decrease from 08/15) FRAX 10% and 1.6%.>> >>04/13/15 Started Fosamax. Patient has osteopenia . Reviewed importance of Vitamin D intake (1000 IU po daily) and Calcium intake (0533-1128 mg po daily in divided doses throughout the day.) Discussed importance of taking in calcium rich foods as well. We reviewed importance of weight bearing exercises now and for the future. Reviewed with patient fracture risks and importance of taking care to watch for risk of falls. DEXA scans should be done on the same machine q 2 years. PT doing well on Fosamax. No heartburn. Discussed medicine's risks such as esphogitis , atypical femur fracture, jaw surgery dangers. [id number] BAIRON WESTON MD [id number] [address] [place] [address] 10/09/2016 08:45:48 10/09/2016 09:30:26 HPV - Human papillomavirus test positive [id number] R87.810 09/15/16 HPV+ (16 & 18 negative), normal Pap. Offered colposcopy versus repap in 1 year. She has had normal paps her whole life. HPV negative in 2011 and 2014. She is not sexually active nor has she been for 10 years. Discussed all of this at length. Nonsmoker and living healthy lifestyle. Repap in 09/2017 I discussed pap smears, human papillomav irus, dysplasia (mild, moderate, severe), cervical cancer, sexually transmitte d diseases and safe sex with patient. I also reviewed colposcopy and cervical biopsies with the patient. We reviewed that sometimes another procedure will need to be done if the biopsy comes back showing a moderate or severe dysplasia, and sometimes we can follow a condition with repeat pap smears. Reviewed that infection with HPV can sometimes continue to make changes on the cervix and compliance is of the utmost importance . If a patient with a HPV infection goes for prolonged periods of time without clinical evaluation , a cervical cancer can develop. [id number] BAIRON WESTON MD [id number] [address] [place] [address] 02/24/2017 08:37:07 02/24/2017 10:46:53 Osteopenia [id number] M85.852 M85.88 02/24/17 COBG DEXA - OSTEOPENIA - Tlumbarspi ne=-1.7, Tneckoffem ur=-2.3, Thip=-0.4 (Significa nt increases since 02/19/15 of 11% at lumbar spine and 10% total hip). FRAX 20%/1.7% (on fosamax and this FRAX is not used for treatment. Fosamax started 02/2015 - 10% increase! Pt to continue for another 2 years. Vit D checked today. Patient has osteopenia . Reviewed T scores in general and patient's T scores from her most recent DEXA scan and all prior scans. Reviewed risk of fracture using WHO FRAX tool. Reviewed importance of Vitamin D intake (1000 IU po daily) and Calcium intake (5475-7429 mg po daily in divided doses throughout the day.) Discussed importance of taking in calcium rich foods as well. We reviewed importance of weight bearing exercises now and for the future. Patient is given internet and other resources for education regarding low bone density diseases. Patient given her T scores in writing and lists of foods that are calcium rich. Reviewed with patient fracture risks and importance of taking care to watch for risk of falls. DEXA scans should be done on the same machine q 2 years. [id number] KRISTAL MORRISON NP [id number] [address] [facility] [place] [address] 09/17/2017 09:40:52 09/17/2017 10:57:54 Gynecologic examination [id number] Z01.411 Z01.419 Mammograph y done today. Reviewed importance of yearly mammogram and once yearly clinical breast exam. Discussed importance of self knowledge of breasts. Pt encouraged to contact immediatel y if she finds anything so that we can investigat e as needed in a timely fashion. Reviewed colonoscop y guidelines . Reviewed the reasoning behind all screening tests which is to catch a cancer or medical problem early when it is most treatable. Also reviewed the opportunit y cost of not having screening done. Discussed importance of exercise and a healthy diet. Staying Healthy sheet given to patient. Reviewed importance of calcium intake, Vitamin D intake, healthy diet and regular aerobic and weight bearing exercise. Reviewed whether or not contracept ion was needed.Bon e done 2017 osteopenia on fosamax, pt report being uptodate for colonoscop y. Screening for malignant neoplasm of cervix [id number] Z12.4 Z11.51 Cervical cancer screening guidelines discussed with patient. Reviewed that if testing has been normal we can also test for HPV with cervical cytology and if both are negative, in some instances can repeat every 3 years.eulogio . Screening for malignant neoplasm of breast 922599595 Z12.39 I reviewed the current breast cancer screening recommenda tions with the patient today. Dietary mian jorge surveillance 312765026 Z71.3 Discussed diet and exercise at length with patient. Reviewed general informatio n about carbohydra jerzy, proteins and fats with patient. Discussed sample diets. Reviewed options to assist with nutrition management including nutrition referrals, weight loss programs and apps like [employer] al. Reviewed internet sites which educate regarding nutrition. Discussed importance of exercises which include muscle building and those that help with aerobic exercises. Discussed current recommenda tions regarding exercise including the suggestion that individual s get 150 minutes of exercise weekly. Body mass index 25-29 - overweight 250359915 Z68.25 [id number] KRISTAL MORRISON NP [id number] [address] [place] [address] 09/23/2018 09:13:34 09/23/2018 10:56:12 Gynecologic examination 55726854 Z01.419 Z01.411 (1) Staying healthy sheet provided. Discussed importance of exercise, reducing stress, and avoiding smoking. Discussed BMI, healthy eating choices, and the option for referral to see a dietitian or a free consultati on with [employer] for a more robust diet plan to help with weight loss as indicated. (2) Reviewed cervical cancer screening guidelines for pap every 3 years when both normal and addition of HPV co-testing after the age of 30. Deferred today due to negative pap last year / sample taken for pap smear and HPV co-testing today. Patient requests / declines STI testing today. (3) Yunior kapoor needs assessed today. Reviewed the importance of protecting herself from sexually transmitte d infections . (4) Reviewed Cancer Family History Questionna radha reviewed criteria for genetic testing if she met it. Discussed the importance of breast cancer screening to include monthly self-breas t exams and annual clinical breast exams. Initial mammograph y screening begins at age 40 when there are no familial risk factors for the developmen t of breast cancer and is annual thereafter . Please contact the clinic as soon as possible with any changes noticed in self-breas t exams or her family history. Screening mammogram complete or ordered today. (5) Reviewed importance of calcium and vitamin D for bone health. Recommend a dietary intake of 600-800 IU of vitamin D and 1000 mg of calcium daily. Optimal intake can be achieved with a combinatio n of diet plus over the counter supplement ation as indicated. Reviewed starting bone density screening post menopausal . (6) Reviewed cholestero l screening recommenda tions to start at the age of 30 when risk factors of hypertensi on, smoking, diabetes, or a family history of premature cardiovasc ular disease are present or at the age of 45 in women without any risk factors. 7) Reviewed the importance of colonoscop y for colon cancer screening beginning at the age of 50 without familial risk factors. - Any labs or samples we took today will be available through the online portal as soon as they are reviewed. If any results return abnormal, the patient may be contacted to schedule a follow-up appointmen t so we can review them in more detail. - Follow-up in 1 year for annual well woman exam or sooner with any new questions or concerns. Screening for malignant neoplasm of cervix [id number] Z12.4 Cervical cancer screening guidelines discussed with patient. Reviewed that if testing has been normal we can also test for HPV with cervical cytology and if both are negative, in some instances can repeat every 3 years.eulogio . Finding of body mass index 018163952 Z68.25 25.7 HPV - Ora n papillomavirus test positive 516646911 R87.841 [id number] KRISTAL MORRISON SUPA [id number] [address] [place] [address] 03/29/2019 08:40:43 03/29/2019 09:42:14 Osteopenia 229873711 M85.852 M85.88 Patient has osteopenia . Reviewed T scores in general and patient's T scores from her most recent DEXA scan and all prior scans. Reviewed risk of fracture using WHO FRAX tool. Reviewed importance of Vitamin D intake (1000 IU po daily) and Calcium intake (7599-5693 mg po daily in divided doses throughout the day.) Discussed importance of taking in calcium rich foods as well. We reviewed importance of weight bearing exercises now and for the future. Patient is given internet and other resources for education regarding low bone density diseases. Patient given her T scores in writing and lists of foods that are calcium rich. Reviewed with patient fracture risks and importance of taking care to watch for risk of falls. DEXA scans should be done on the same machine q 2 years. Pt is taking 2400 mg calcium daily with 1200 mg vit d. We discussed the best place for her to get calcium is in her diet. Pt will calculate on average what she eats with calcium daily than add supplement to get to 1500 mg. We discussed that she will probably be able to cut the calcium pill to 1-2 daily instead of 4. Pt agrees. Pt will continue of fosamax. She has been on it for 4 years. [id number] BAIRON WESTON MD [id number] [address] [place] [address] 10/10/2019 09:05:47 10/10/2019 10:59:30 Gynecologic examination 02102939 Z01.411 Mammograph y planned today. Reviewed importance of yearly mammogram and once yearly clinical breast exam. Discussed importance of self knowledge of breasts. Pt encouraged to contact immediatel y if she finds anything so that we can investigat e as needed in a timely fashion. Reviewed colonoscop y guidelines . Reviewed the reasoning behind all screening tests which is to catch a cancer or medical problem early when it is most treatable. Also reviewed the opportunit y cost of not having screening done. Discussed importance of exercise and a healthy diet. Staying Healthy sheet given to patient. Reviewed importance of calcium intake, Vitamin D intake, healthy diet and regular aerobic and weight bearing exercise. Reviewed whether or not contracept ion was needed. Screening for malignant neoplasm of breast 876235866 Z12.39 I reviewed the current breast cancer screening recommenda tions with the patient today. Dietary mian jorge surveillance 658439367 Z71.3 Discussed diet and exercise at length with patient. Reviewed general informatio n about carbohydra jerzy, proteins and fats with patient. Discussed sample diets. Reviewed options to assist with nutrition management including nutrition referrals, weight loss programs and apps that track nutrition and activity. Reviewed internet sites which educate regarding nutrition. Discussed importance of exercises which include muscle building and those that help with aerobic exercises. Discussed importance of 150 minutes of exercise a week. Body mass index 25-29 - overweight 859476124 Z68.26 26 Screening for osteoporosis 395720713 Z13.820 Human yuliana llomavirus deoxyribonucleic acid detected, high risk on cervical specimen 651759685 R87.810 I reviewed the current cervical cancer screening recommenda tions with the patient today. Administra tion of influenza vaccine 84431388 Z23 Patient is advised regarding influenza risks. Discussed vaccine risks and benefits. Reviewed side effects. Pt given the Vaccine Informatio n Statement. Questions answered. 10/10/2019 DECLINES [id number] BAIRON WESTON MD [id number] [address] [place] [address] 10/11/2020 10:36:03 10/11/2020 12:10:22 Gynecologic examination 68263878 Z01.411 Mammograph y planned today. Reviewed importance of yearly mammogram and once yearly clinical breast exam. Discussed importance of self knowledge of breasts. Pt encouraged to contact immediatel y if she finds anything so that we can investigat e as needed in a timely fashion. Reviewed colonoscop y guidelines . Reviewed the reasoning behind all screening tests which is to catch a cancer or medical problem early when it is most treatable. Also reviewed the opportunit y cost of not having screening done. Discussed importance of exercise and a healthy diet. Staying Healthy sheet given to patient. Reviewed importance of calcium intake, Vitamin D intake, healthy diet and regular aerobic and weight bearing exercise. Reviewed whether or not contracept ion was needed. Screening for malignant neoplasm of cervix 667124088 Z12.4 Z11.51 I reviewed the current cervical cancer screening recommenda tions with the patient today. Screening for malignant neoplasm of breast 896587246 Z12.39 I reviewed the current breast cancer screening recommenda tions with the patient today. Dietary ma nagement surveillance 768168336 Z71.3 Discussed diet and exercise at length with patient. Reviewed general informatio n about carbohydra jerzy, proteins and fats with patient. Discussed sample diets. Reviewed options to assist with nutrition management including nutrition referrals, weight loss programs and apps that track nutrition and activity. Reviewed internet sites which educate regarding nutrition. Discussed importance of exercises which include muscle building and those that help with aerobic exercises. Discussed importance of 150 minutes of exercise a week. Body mass index 25-29 - overweight 934670557 Z68.29 26 Screening for osteoporosis 292615292 Z13.820 Osteopenia 340732157 M85 .852 M85.88 02/24/17 COBG DEXA - OSTEOPENIA - Tlumbarspi ne=-1.7, Tneckoffem ur=-2.3, Thip=-0.4 (Significa nt increases since 02/19/15 of 11% at lumbar spine and 10% total hip). FRAX 20%/1.7% (on fosamax and this FRAX is not used for treatment. Fosamax started 02/2015 - 10% increase! Pt to continue for another 2 years. Vit D checked today. Started alendronat e in 02/2015 and doing well with it. Will recheck DEXA in March 2021 and will consider move to prolia. Discussed with pt. Patient has osteopenia . Reviewed T scores in general and patient's T scores from her most recent DEXA scan and all prior scans. Reviewed risk of fracture using WHO FRAX tool. Reviewed importance of Vitamin D intake (1000 IU po daily) and Calcium intake (0106-9471 mg po daily in divided doses throughout the day.) Discussed importance of taking in calcium rich foods as well. We reviewed importance of weight bearing exercises now and for the future. Patient is given internet and other resources for education regarding low bone density diseases. Patient given her T scores in writing and lists of foods that are calcium rich. Reviewed with patient fracture risks and importance of taking care to watch for risk of falls. DEXA scans should be done on the same machine q 2 years. Stress 95387615 Z73.3 Finding re lating to psychosocial functioning [id number] Z65.9 This patient is feeling the effects of the family, work, financial, community, and general environmen meghna changes due to the [place] pandemic. We discussed the stressors she is facing. We discussed ways to manage stress in general including: * Importance of regular 8 hours of sleep * Eating a healthy diet. Reviewed importance of fresh vegetables and limiting snack foods, excess carbohydra jerzy, sugars and salt. * Importance of regular exercise. * Importance of quiet time to oneself including meditation , music, prayer, guided imagery etc... [id number] BAIRON WESTON MD [id number] [address] [place] [address] 05/13/2021 12:21:23 05/13/2021 13:26:39 Osteopenia [id number] M85.852 M85.88 03/05/21 COBG DEXA - OSTEOPENIA - Tlumbarspi ne=-1.4 , Tneckoffem ur=-2.1 , Ttotalhip= -0.5 (When this study is compared to the study done 03/01/19 there is a statistica lly significan t increase of +6.7% in the left hip) FRAX On bisphospho nates (started in 02/2015) 03/2021 Osteopenia again.6% increase in left hip. Has been on bisphospho nates since 2014. 05/13/21 STOP ALENDRONAT E. 6 years of bisphospho nates have improved T scores. Will recheck in 2 years. Reviewed that if she needs to be on something we would consider prolia. Pt has Vit D checked by PCP. Patient has osteopenia . Reviewed T scores in general and patient's T scores from her most recent DEXA scan and all prior scans. Reviewed risk of fracture using WHO FRAX tool. Reviewed importance of Vitamin D intake (1000 IU po daily) and Calcium intake (7718-8144 mg po daily in divided doses throughout the day.) Discussed importance of taking in calcium rich foods as well. We reviewed importance of weight bearing exercises now and for the future. Patient is given internet and other resources for education regarding low bone density diseases. Patient given her T scores in writing and lists of foods that are calcium rich. Reviewed with patient fracture risks and importance of taking care to watch for risk of falls. DEXA scans should be done on the same machine q 2 years. Health Concerns Section Related Observation LastModified by Organization Detai ls LastModified Time None Recorded Concern Status LastModified by Organization Details LastModified Time None Recorded Advance Directives Directive Y: Payers Encounter Date Sequence Insurance Name Policy Number Policy Phipps Covered Member ID Phipps Member ID Guarantor Name 09/23/2018 1 [place] [id number] Nilda Sanches Tysinger [id number] Nilda Sanches Tysinger 09/23/2018 2 () Nilda Sanches Tysinger [id number] Nilda B Tysinger 03/29/2019 1 [place] [id number] Nilda B Tysinger [id number] Nilda B Tysinger 03/29/2019 2 () Nilda B Tysinger [id number] Nilda B Tysinger 10/10/2019 1 [place] [id number] Nilda B Tysinger [id number] Nilda B Tysinger 10/10/2019 2 () Nilda B Tysinger [id number] Nilda B Tysinger 10/11/2020 1 [place] [id number] Nilda B Tysinger [id number] Nilda B Tysinger 10/11/2020 2 () Nilda B Tysinger [id number] Nilda B Tysinger 05/13/2021 1 [place] [id number] Nilda B Tysinger [id number] Nilda B Tysinger 05/13/2021 2 () Nilda B Tysinger [id number] Nilda B Tysinger Notes Date Note Type Note Provider Name and Address Organization Details Recorded Time 09/23/2018 text/html Annual Postmenop ausal ([facility])Reported bypatient.Patient Relationship To Practice:established patient Current Medical History:active medical problems stable Relevant Family History:no family history of breast cancer; no family history of ovarian cancer; no family history of uterine cancer; no family history of colon cancer; no family history of blood clots/DVT Menopausal Symptoms:not present HRT:never on HRT Vaginal Bleeding:no Sexually Active:No: no current relationship STI Screen:declines Health/Prevention:Exe rcise: yes; Vitamin D: yes; Adequate Calcium Intake: yes; Breast Self Exam: yes; Seat Belt Use: yes; Safe Sex: yes; Tobacco Use: yes Mammogram:up-to-date Pap Smear +/- HPV Cotesting:up-to-date Thyroid/Lipid Screening:up-to-date Colonoscopy:up-to-mirna e Bone Density Study:up-to-date Patient has:Primary Care Physician: yesNotes:The patient presents today for her annual exam. Her BP is elevated in the office today. She states that she was placed on medication a year ago, but it made her diastolic too low, so she stopped taking it. She states that she tracks it at home, and it stays around 125-135/75-85. KRISTAL MORRISON NP [address] [facility] [address], [place], [address], [facility] 09/23/2018 10:54:21 03/29/2019 text/html Osteoporosis/Ost eopen ia ([facility])Reported bypatient.* Severity:increased BMDNotes:Patient presents today to review BD results. KRISTAL MORRISON NP [address] [facility] [address], [place], [address], [facility] 03/29/2019 09:37:31 10/10/2019 text/html Annual Postmenop ausal ([facility])Reported bypatient.Patient Relationship To Practice:established patient Current Medical History:no active medical problems; no recent surgeries or hospitalizations Relevant Family History:no family history of breast cancer; no family history of ovarian cancer; no family history of uterine cancer; no family history of colon cancer; no family history of blood clots/DVT Menopausal Symptoms:not present HRT:never on HRT; not currently on HRT Vaginal Bleeding:no Sexually Active:No: STI Screen:declines Health/Prevention:Exe rcise: yes; Vitamin D: yes; Adequate Calcium Intake: yes; Breast Self Exam: yes; Seat Belt Use: yes; Tobacco Use: no Mammogram:up-to-date Pap Smear +/- HPV Cotesting:up-to-date Thyroid/Lipid Screening:up-to-date Colonoscopy:up-to-mirna e Bone Density Study:up-to-date Patient has:Primary Care Physician: yes; Home Service Technician: yes; Mulling Machine Operator: no BAIRON WESTON MD [address] [facility] [address], [place], [address] [place] [address] 10/10/2019 10:56:11 10/11/2020 text/html Annual Postmenop ausal ([facility])Reported bypatient.Patient Relationship To Practice:established patient Current Medical History:no active medical problems; no recent surgeries or hospitalizations Relevant Family History:no family history of breast cancer; no family history of ovarian cancer; no family history of uterine cancer; no family history of colon cancer; no family history of blood clots/DVT Menopausal Symptoms:not present HRT:never on HRT; not currently on HRT Vaginal Bleeding:no Sexually Active:No: STI Screen:declines Health/Prevention:Exe rcise: yes; Vitamin D: yes; Adequate Calcium Intake: yes; Breast Self Exam: yes; Seat Belt Use: yes; Tobacco Use: no Mammogram:up-to-date Pap Smear +/- HPV Cotesting:up-to-date Thyroid/Lipid Screening:up-to-date Colonoscopy:up-to-mirna e Bone Density Study:up-to-date Patient has:Primary Care Physician: yes; Home Service Technician: yes; Mulling Machine Operator: noNotes:Pt. presents today for her annual exam and mammo. Pt. has no concerns today. Have you been exposed to anyone positive for COVID, have any pending COVID test or any COVID symptoms? No BAIRON WESTON MD [address],[facility] [place], [address] 10/11/2020 17:40:06 05/13/2021 text/html Osteoporosis/Ost eopen ia ([facility])Reported bypatient.* Location:total hip left; femoral neck left; lumbar spine * Quality:osteopenia lumbar spine (and hip) Year of Diagnosis:2014 * Severity:lowest t-score -2.1 * Context:postmenopausa l Diagnostic TestingOther:DEXA Risk Factors:age:65; postmenopausal Currentweight bearing exercises no change; calcium supplements; alendronate (Fosamax) Previous Treatmentsweight bearing exercises no change; calcium supplements; alendronate (Fosamax) BAIRON WESTON MD [address], [place], [address] 05/13/2021 13:26:23 OBGyn Episode Ob Episode Information Episode Created Date Number of Fetuses Patient Bloodtype Patient rh Status Prepregnancy Weight lbs Domestic Partner Domestic Partner Phone Father Name Butcher Assistant Status 08/21/20 14 1 CLOSED Fetus Data First Name Last Name Admitted to NICU Weight (g) Sex Living Outcome Pediatric Complications Fetus ID Race Codes Race Delivery Type 3090.09 55 F [id number] Amanuel Calculation Initial Amanuel Date Initial Exam Date Initial Exam Provider Initial Ultrasound Date Last Menstrual Period Date Ultra Sound Weeks Gestation 0 Eighteen To Twenty Week Amanuel Update Ultra Sound Date Fundal Height At Umbil Quickening Date Ultra Sound Latest Weeks Gestation Final Amanuel Confirmed By Final Amanuel Confirmed Date Final Amanuel Date Ultra Sound Latest Days Gestation 0 0 Menstrual History Last Menstrual Date Menses Monthly On Bcp Conception Prior Menses Frequency Hcg Plus Date Menarche Onset Age Delivery Information Delivery Date Delivery Type Labor Anesthesia Weeks Gestation Incision Type Labor Labor Length Hrs Delivered By Post Complications Tubal Sterilization Discharge Date Comments 0 Discharge Information Feeding Method Contraceptive Method Maternal HG B and HCT Levels Ob Episode Information Episode Created Date Number of Fetuses Patient Bloodtype Patient rh Status Prepregnancy Weight lbs Domestic Partner Domestic Partner Phone Father Name Butcher Assistant Status 08/21/20 14 1 CLOSED Fetus Data First Name Last Name Admitted to NICU Weight (g) Sex Living Outcome Pediatric Complications Fetus ID Race Codes Race Delivery Type 3486.98 85 M [id number] Amanuel Calculation Initial Amanuel Date Initial Exam Date Initial Exam Provider Initial Ultrasound Date Last Menstrual Period Date Ultra Sound Weeks Gestation 0 Eighteen To Twenty Week Amanuel Update Ultra Sound Date Fundal Height At Umbil Quickening Date Ultra Sound Latest Weeks Gestation Final Amanuel Confirmed By Final Amanuel Confirmed Date Final Amanuel Date Ultra Sound Latest Days Gestation 0 0 Menstrual History Last Menstrual Date Menses Monthly On Bcp Conception Prior Menses Frequency Hcg Plus Date Menarche Onset Age Delivery Information Delivery Date Delivery Type Labor Anesthesia Weeks Gestation Incision Type Labor Labor Length Hrs Delivered By Post Complications Tubal Sterilization Discharge Date Comments 4 Discharge Information Feeding Method Contraceptive Method Maternal HG B and HCT Levels
--- OUTSIDE RECORDS SUMMARY | 2024-12-13 19:11 | XMS_ITS | Clinical Summary ---
Author Organization [facility] Facility Address [address] [address] Care Team Providers Care Treasury Consultant Name Role Phone Hillary Aguayo MD Primary Care Provider [phone] Allergies Active Allergy Reactions Criticality Noted Date Comments Losartan 03/13/2022 Medications fluticasone (FLONASE) 50 MCG/ACT nasal spray Administer 1 spray into each nostril 1 (one) time each day Active hydroCHLOROthia zide 12.5 MG tablet Take 12.5 mg by mouth 1 (one) time each day Active Active Problems Problem Noted Date Diagnosed Date Acute kidney failure 03/13/2022 Chronic kidney disease, stage 2 (mild) Hypertensive chronic kidney disease 03/13/2022 Social History Tobacco Use Types Packs/Day Years Used Date Smoking Tobacco: Never Smokeless Tobacco: Never Tobacco Cessation:Counseling Given: No Alcohol Use Standard Drinks/Week Comments Never 0 (1 standard drink = 0.6 oz pur e alcohol) Comments Unknown Sex and Gender Information Value Date Recorded Sex Assigned at Not on file Legal Sex Female 10:41 AM EDT Gender Identity Not on file Sexual Orientation Not on file Last Filed Vital Signs Vital Sign Reading Time Taken Comments Blood Pressure 140/79 03/13/2022 2:51 PM EDT Pulse 90 03/13/2022 2:51 PM EDT Temperature - - Respiratory Rate - - Oxygen Saturation - - Inhaled Oxygen Concentration - - Weight 65.8 kg (145 lb) 03/13/2022 2:51 PM EDT Height - - Body Mass Index - - Plan of Treatment Health Maintenance Due Date Last Done Comments Breast Cancer Screening 1955 Pneumococcal Vaccine: 65+ Ye ars (1 of 2 - PCV) 1962 Colorectal Cancer Screening: Annual FOBT 2005 Colorectal Cancer Screening: Colonoscopy 2005 Colorectal Cancer Screening: Sigmoidoscopy 2005 Influenza Vaccine (#1) 2024 Hepatitis B Vaccine Aged Out No longe r eligible based on patient's age to complete this topic Insurance [employer] Care Teams Treasury Consultant Relationship Specialty Start Date End Date Hillary Aguayo MD [address] [place] [id number] PCP - General Internal Medicine 12/20/21
== END 2024-12-13 16:34 | disposition home or self-care (01) ==
LOC: HO.HMCFM 15:51
PROVIDERS: PCP Internal Medicine; Visit Provider Internal Medicine
DX: Z00.00 Encounter for general adult medical examination without abnormal findings (principal); I10 Essential (primary) hypertension

== ENCOUNTER → 2024-12-13 15:50 | Outpatient (BNVA) | payer OTHER, SELFPAY | PROVIDERS: PCP Internal Medicine; Visit Provider Internal Medicine | DX: Z00.00 Encounter for general adult medical examination without abnormal findings (principal); I12.9 Hypertensive chronic kidney disease with stage 1 through stage 4 chronic kidney disease, or unspecified chronic kidney disease; N18.2 Chronic kidney disease, stage 2 (mild) | CPT/HCPCS: 96127 ==

== ENCOUNTER 2025-01-05 10:15 | Outpatient (REF) | payer OTHER, SELFPAY ==
--- OUTSIDE RECORDS SUMMARY | 2025-01-05 11:09 | XMS_ITS | Patient Health Record ---
Author Organization [facility] Address [address] [place] [address] [address] [place] [address] Care Team Providers Care Veneer Joiner Name Role Phone Luna NGUYEN MD, YESSI Primary Care Provider PIERRE Tong Unavailable [phone] Allergies Allergen (clinical drug ingredient) Drug/Non Drug [...] W/U Status Risk Notes Problem Essential hypertension (49235771) Essential (primary) hypertension (I10) Active confirmed Problem Chronic kidney disease stage 2 (803068343) Chronic kidney disease, stage 2 (mild) (N18.2) Active confirmed Problem COVID-19 (402010596) COVID-19 (U07.1) Active confirmed Plan Of Treatment Pending Test Test Name Order Date MM Digital Screening Mammogram 3D 2021 MM Digital Screening Mammogram 3D 2023 Insurance Providers Payer Name Payer Address Payer Phone Subscriber Number Group Number Insured Name Patient Relationship to Insured Coverage Start Date Coverage End Date [employer] [address] [address] [place] [address] [id number] PPO ROBERT OBRIEN Self - patient is the insured Program [address] [address] [place] [address] [phone] [id number] ROBERT OBRIEN Self - patient is the insured MEDICARE [address] [facility] [place] [id number] ROBERT OBRIEN Self - patient is the insured Medical (General) History Medical History History ICD Code Essential (primary) hypertension I10 Chronic kidney disease, stage 2 (mild) N 18.2 COVID-19 U07.1 Surgical History Surgery Date(Month/Year) Colonoscopy 12/2020 Hospitalization History Reason Date(Month/Year) 2 Vaginal Deliveries
--- OUTSIDE RECORDS SUMMARY | 2025-01-05 11:09 | XMS_ITS | Data Portability ---
Author Organization [facility] [place], [id number]IP Address [address] [place] [address] Assessment No assessment recorded. Plan of Treatment Reminders Order Date Submit Date Provider Last Modified By Organization Details Last Modified Time Details Appointments None recorded. Lab pap, IG + HPV - 2019 020 DBA_PATCH_ [id number] [facility] ([facility], [address] [place] [address], [address], 03:37:50 pap, IG + HPV 2017 018 DBA_PATCH_ [id number] [facility] ([facility], [address] [place] [address], [address], 03:36:07 Referral None recorded. Procedures None recorded. Surgeries None recorded. Imaging None recorded. Medication Orders alendronat e 70 mg tablet 2020 021 INTERFACE [email or web address][id number], [address], [place], [place], [id number], 17:40:09 Patient TargetsNo targets recorded. Patient Instructions Encounter Date Encounter Id Patient Instructions Last Modified By Organization Details Last Modified Time 03/29/2019 [id number] preventing osteoporosis: care instructions [email or web address] Not available 03/29/2019 09:37:26 10/10/2019 [id number] breast self-exam : care instructions ndandrea Not available 10/10/2019 10:55:12 learning about breast cancer screening ndandrea Not available 10/10/2019 10:55:12 10/11/2020 [id number] breast self-exam : care instructions ndandrea Not available 10/11/2020 12:08:19 learning about breast cancer screening ndandrea Not available 10/11/2020 12:08:19 05/13/2021 [id number] preventing osteoporosis: care instructions ndandrea Not available 05/13/2021 13:05:47 Reason for Referral None Reported. Results Created Date Observation Date Name Description Value Unit Range Abnormal Flag Note LastModifiedBy Organization Detail LastModifiedTime 09/23/20 18 09/24/2018 pap, IG + HPV interpretati on NIL NEGAT DEANNE FOR INTRA EPITH ELIAL LESIO N AND MALIG SERGEY . Not Available [facility] ([facility]) [address] [place], [address], 09/27/2018 06:06:55 09/23/20 18 09/24/2018 pap, IG + HPV category: NIL Negat deanne for Intra epith elial Lesio n Not Available [facility] ([facility]) [address] [place], [address], 09/27/2018 06:06:55 09/23/20 18 09/24/2018 pap, IG + HPV adequacy: ENDO Satis facto ry for evalu ation . Endoc ervic al and/o r squam ous metap lasti c cells (endo cervi iraida compo nent) are prese nt. Not Available [facility] ([facility]) [address] [place], [address], 09/27/2018 06:06:55 09/23/20 18 09/24/2018 pap, IG + HPV clinician provided ICD10: Sherman gonzalez Z12.4 Not Available [facility] ([facility]) [address] [place], [address], 09/27/2018 06:06:55 09/23/20 18 09/24/2018 pap, IG + HPV performed by: Sherman mckeon, Cytot more gonzalez (ASCP ) Not Available [facility] ([facility]) [address] [facility], [place], [address], 09/27/2018 06:06:55 09/23/20 18 09/24/2018 pap, IG + HPV cytology history: Commen t Date LCA Speci men ID PAP Test Resul t HPV Test Resul t 09/17 348-G 74-00 11-0 96812 5 NIL 76125 1 N 09/15 347-G 74-00 40-0 23569 5 NIL 58486 1 P 09/15 347-G 74-00 40-0 90437 1 N 09/15 347-G 74-00 40-0 93138 2 N 08/27 327-G 74-00 43-0 90339 5 NIL 31927 1 N 08/13 317-G 74-00 12-0 49282 3 NIL 80831 3 N 07/24 293-G 74-00 34-0 04482 4 NIL Not Available [facility] ([facility]) [address] [facility], [place], [address], 09/27/2018 06:06:55 09/23/20 18 09/24/2018 pap, IG [...] ts do occur . Not Available [facility] ([facility]) [address] [place], [address], 09/27/2018 06:06:55 09/23/20 18 09/24/2018 pap, IG + HPV test methodology: Commen t This liqui d based ThinP rep(R ) pap test was scree ezequiel with the use of an image guide d systfrench m. Not Available [facility] ([facility]) [address] [facility] [place], [address], 09/27/2018 06:06:55 09/23/20 18 09/26/2018 pap, IG + HPV HPV aptima Negati ve negati ve This test detec ts fourt een high- risk HPV types (16/1 8/31/ 33/35 /39/4 5/ 51/52 /56/5 8/59/ 66/68 ) witho ut diffe renti ation . Not Available [facility] ([facility]) [address] [facility], [place], [address], 09/27/2018 06:06:55 10/10/19 20 10/11/2019 pap, IG + HPV interpretati on NILM NEGAT DEANNE FOR INTRA EPITH ELIAL LESIO N OR MALIG SERGEY . Not Available [facility] ([facility]) [address] [facility], [place], [address], 10/12/2019 07:38:38 10/10/19 20 10/11/2019 pap, IG + HPV category: NIL Negat deanne for Intra epith elial Lesio n Not Available [facility] ([facility]) [address] [facility], [place], [address], 10/12/2019 07:38:38 10/10/1910/11/2019 pap, IG + HPV adequacy: ENDO Satis facto ry for evalu ation . Endoc ervic al and/o r squam ous metap lasti c cells (endo cervi iraida compo nent) are prese nt. Not Available [facility] ([facility]) [address] [facility], [place], [address], 10/12/2019 07:38:38 10/10/1910/11/2019 pap, IG + HPV clinician provided ICD10: COMMEN T R87.8 10 Not Available [facility] ([facility]) [address] [place], [address], 10/12/2019 07:38:38 10/10/1910/1110/11/2019 pap, IG + HPV performed by: SHERMAN sloan Cytot more gonzalez (ASCP ) Not Available [facility] ([facility]) [address] [place], [address], 10/12/2019 07:38:38 10/10/19 20 10/11/2019 pap, IG + HPV cytology history: COMMEN T Date LCA Speci men ID PAP Test Resul t HPV Test Resul t 09/23 354-G 74-00 52-0 73023 5 NIL 75430 1 N 09/17 348-G 74-00 11-0 19769 5 NIL 84886 1 N 09/15 347-G 74-00 40-0 04508 5 NIL 85556 1 P 09/15 347-G 74-00 40-0 51691 1 N 09/15 347-G 74-00 40-0 25052 2 N 08/27 327-G 74-00 43-0 47600 5 NIL 30030 1 N 08/13 317-G 74-00 12-0 85896 3 NIL 74361 3 N Not Available [facility] ([facility]) [address] [facility], [place], [address], 10/12/2019 07:38:38 10/10/19 20 10/11/2019 pap, IG [...] ts do occur . Not Available [facility] ([facility]) [address] [place], [address], 10/12/2019 07:38:38 10/10/19 20 10/11/2019 pap, IG + HPV test methodology: COMMEN T This liqui d based ThinP rep(R ) pap test was danyelle nieves with the use of an image guide brigida angeles Not Available [facility] ([facility]) [address] [facility], [place], [address], 10/12/2019 07:38:38 10/10/19 20 10/12/2019 pap, IG + HPV HPV aptima NEGATI VE negati ve This nucle ic acid ampli ficat ion test detec ts fourt een high- risk HPV types (16,1 8,31, 33,35 ,39,4 5,51, 52,56 ,58,5 9,66, 68) witho ut diffe renti ation . Not Available [facility] ([facility]) [address] [facility], [place], [address], 10/12/2019 07:38:38 09/29/20 18 09/23/2018 MAMMO , scree ross, tomos ynthe sis, bilat eral No observ ation record ed. [email or web address] [id number] [address] [facility] [place], [address], 10/06/2018 08:37:54 09/29/20 18 09/23/2018 MAMMO , scree ross, tomos ynthe sis, bilat eral No observ ation record ed. [email or web address] [id number] [address] [place], [address], 09/29/2018 14:56:08 03/01/20 19 03/01/2019 DEXA, axial skele ton No observ ation record ed. [email or web address] Not Available 03/28 13:47:06 10/11/19 20 10/10/2019 MAMMO , scree ross, tomos ynthe sis, bilat eral No observ ation record ed. [email or web address] [id number] [address] [place], [address], 10/12/2019 15:03:53 10/11/19 20 10/10/2019 MAMMO , scree ross, tomos ynthe sis, bilat eral No observ ation record ed. [email or web address] [id number] [address], [place], [address], 10/11/2019 15:53:13 10/16/19 21 10/16/2020 MAMMO , scree ross, tomos ynthe sis, bilat eral No observ ation record ed. [email or web address] [id number] t [address], [place], [address], 10/17/2020 11:45:36 10/16/19 21 10/16/2020 MAMMO , scree ross, tomos ynthe sis, bilat eral No observ ation record ed. [email or web address] [id number] t [address]amm[address], [place], [address], 10/17/2020 11:52:06 03/05/20 21 03/05/2021 DEXA, axial skele ton No observ ation record ed. [email or web address] In-House Results For Internal Use Only, Do Not Delete/merge, [id number] 05/13/2021 13:23:37 Result Notes Documentation Provider Name [...] in 2 years. Nidia Loyola (TERMED) null, [facility] 03/28/2019 13:47:06 Dexa, Axial Skeleton : Bone density Bone Density Interpretation: osteopenia Lowest T-score: -2.1 Femur neck Percentage of change from last bone density: 6% increase Frax Score: Not applicable due to prior/current medical therapy Recommended treatment: Optimize dietary calcium and vitamin D intake to 2173-1711 mg daily, Weight-bearing exercise for 30 minutes 3 times weekly, This is an adequate study. Provider Reading Study: Dr. Bairon Andres Followup planned: Repeat DEXA 2 years BAIRON WESTON MD [address] [employer],[place], [address], [facility] 05/13/2021 13:23:37 Problems Name Problem SNOMED Code Status Onset Date Resolution Date Notes Provider Name and Address Organization Details Recorded Time HPV - Human papilloma virus test positive Active 2015 Neg Mayte Desir [facility] 6 10:10:09 Osteopeni a 072505059 Active 201003/05/21 COBG DEXA - OSTEOPENIA - Tlumbarspi ne=-1.4 , Tneckoffem ur=-2.1 , Ttotalhip= -0.5 (When this study is compared to the study done 03/01/19 there is a statistica lly significan t increase of +6.7% in the left hip) FRAX On bisphospho nates (started in 02/2015) BAIRON WESTON MD [address] [employer] [facility] [place], [address] , [facility] 1 16:37:42 Seasonal allergic rhinitis 582037607 Active BAIRON WESTON MD [address] [place], [address] , [facility] 6 08:15:47 Hypertens deanne disorder 56701387 Active BAIRON WESTON MD [address] [employer] [facility] [place], [address] , [place] [facility] 6 08:22:19 Problem Notes None recorded. Procedures Surgical History Date Name Laterality Status Provider Name and Address Organization Details Recorded Time 10/11/19 21 Date of Last Mammogram completed Kyung Garcia (TERMED) [facility] 10/11/2020 10:48:11 10/10/19 20 Date of Last Pap Smear completed Cinda Castillo(TE RM) [facility] 10/10/2020 10:11:02 08/22/20 14 completed Mary Ann Calderon (TERMED) [facility] 08/22/2014 09:10:09 10/05/19 13 Date of Last Colonoscopy completed Carli Cole [facility] 09/23/2018 10:19:56 10/05/19 12 GI- Colonoscopy completed BAIRON WESTON MD [address] [place] [address],[facility] [place], [address], [facility] 08/22/2014 09:52:40 08/06/20 11 completed Ale Angelo (TERMED) [facility] 08/21/2014 11:37:54 Surgery-other completed Ale villegas (TERMED) [facility] 08/21/2014 11:37:53 ENT-Adenoidecto my/Tonsillectom y completed Ale Angelo (TERMED) [facility] 08/21/2014 11:37:53 Imaging Results Imaging Date Name Status LastModified by Organiz ation Details LastModified Time 09/23/2018 MAMMO, screening, tomosynthesis, bilateral completed [email or web address] [id number] [address] [email or web address], [address], 10/06/2018 08:37:54 09/23/2018 MAMMO, screening, tomosynthesis, bilateral completed [email or web address] [id number] [address] [email or web address], [address], 09/29/2018 14:56:08 03/01/2019 DEXA, axial skeleton completed [email or web address] Information not available 03/28/2019 13:47:06 10/10/2019 MAMMO, screening, tomosynthesis, bilateral completed [email or web address] [id number] [address] [facility], [place], [address], 10/12/2019 15:03:53 10/10/2019 MAMMO, screening, tomosynthesis, bilateral completed [email or web address] [id number] [address], [place], [address], 10/11/2019 15:53:13 10/16/2020 MAMMO, screening, tomosynthesis, bilateral completed [email or web address] [id number] [address], [place], [address], 10/17/2020 11:45:36 10/16/2020 MAMMO, screening, tomosynthesis, bilateral completed [email or web address] [id number] [address], [place], [address], 10/17/2020 11:52:06 03/05/2021 DEXA, axial skeleton completed [email or web address] In-House Results For Internal Use Only, Do Not Delete/merge, [id number] 05/13/2021 13:23:37 Procedure Notes None recorded. Medical Equipment None Reported. Allergies Allergen ID Allergen Name Allergen Category Reaction Reaction Severity Criticality Documentation Date Start Date Code Code System Note Provider Name and Address Organization Details Recorded Time 327813 Cozaar medicatio n Not available Not available Not available 08/22/2014 76860 8 RxNorm Mary Ann Calderon (TERMED) [place], [place] - [facility] [place] 4 09:10:09 Medications Name Sig Start Date [...] Address Organization Details Last Updated DateTime 8 88662.5 2 g 25.7 kg/m2 157.86 cm 67 /min 176 mm[Hg] 73 mm[Hg] 180 mm[Hg] 80 mm[Hg] Carli Cole [facility] [place] 8 10:18:01 Date Recorded Body height Body mass index (BMI) Body weight Heart rate Systolic blood pressure Diastolic blood pressure Provider Name and Address Organization Details Last Updated DateTime 9 157.86 cm 26.2 kg/m2 10441.0 2 g 67 /min 157 mm[Hg] 89 mm[Hg] Cinda flynn(TERM) [facility] 9 09:03:50 Date Recorded Body height Body mass index (BMI) Body weight Heart rate Systolic blood pressure Diastolic blood pressure Provider Name and Address Organization Details Last Updated DateTime 0 157.86 cm 26 kg/m2 50072.7 1 g 88 /min 131 mm[Hg] 80 mm[Hg] Renugoldy Walter TERMED [facility] 0 10:06:14 Date Recorded Body weight Body mass index (BMI) Body height Heart rate Body temperature Systolic blood pressure Diastolic blood pressure Provider Name and Address Organization Details Last Updated DateTime 1 80061.5 2 g 25.7 kg/m2 157.86 cm 86 /min 98.1 [degF] 137 mm[Hg] 87 mm[Hg] Kyung Garcia (TERMED) [facility] 1 11:33:02 Date Recorded Body height Body mass index (BMI) Body weight Body temperature Heart rate Systolic blood pressure Diastolic blood pressure Provider Name and Address Organization Details Last Updated DateTime 1 157.86 cm 26 kg/m2 58806.7 1 g 98.6 [degF] 74 /min 118 mm[Hg] 76 mm[Hg] Carli Cole [facility] 1 12:57:51 Social History Question Answer Notes LastModified by Organizat ion Details LastModified Time Tobacco Smoking Status Former Smoker teenager Micheline Smieon (TERMED) [facility], [facility] 09/15/2016 08:50:55 Do You Have An Advance Directive? Yes [email or web address] Information not available 09/23/2018 What Is Your Level Of Alcohol Consumption? None [email or web address] Information not available 08/21/2014 Is Blood Transfusion Acceptable In An Emergency? Yes [email or web address] Information not available 09/23/2018 What Is Your Level Of Caffeine Consumption? Moderate 1 Cup Coffee Daily, 1 Soda Every Other Day [email or web address] Information not available 09/23/2018 Are You Currently Employed? Yes [email or web address] Information not available 09/23/2018 What Type Of Diet Are You Following? REGULAR [employer] Healthy [email or web address] Information not available 09/23/2018 Which Illicit Or Recreational Drugs Have You Used? None [email or web address] Information not available 08/21/2014 What Is Your Occupation? [employer] [email or web address] Information not available 08/22/2014 How Many Days In The Past Year Have You Had A Heavy Drinking Consumption (4+ Female, 5+ Male)? 0 Information not available 09/15/2016 History Of Domestic Violence No [email or web address] Information not available 08/21/2014 Country Of [facility] [email or web address] Informat ion not available 09/23/2018 Ethnic Background Information not available 09/23/2018 Marital Status Passed 09/11/11 - Battled Bone Cancer [email or web address] Information not available 08/21/2014 What Was The Date Of Your Most Recent Tobacco Screening? 10/11/2020 [email or web address] Information not available 10/11/2020 Performs Monthly Self-breast Exam? Yes [email or web address] Information not available 09/23/2018 Seat Belts Used Routinely Yes [email or web address] Information not available 08/22/2014 Are You Sexually Active? No Information not available 09/15/2016 Are You Passively Exposed To Smoke? No [email or web address] Information not available 09/23/2018 How Much Tobacco Do You Smoke? No [email or web address] Information not available 08/21/2014 General Stress Level Low [email or web address] Information not available 08/22/2014 How Many Years Have You Smoked Tobacco? 0 [email or web address] Information not available 08/21/2014 Do You Have [...] exercise level? Moderate Walks 30 minutes daily [email or web address] Information not available 08/21/2014 Mental Status None [...] Medical History Condition Response Neurology- Dementia Y Cardiology- Heart Disease Y Endocrinology- Osteopenia Y Cardiology- High Blood Pressure Y Urology-Other [...] dose 12/06/2020 completed BAIRON WESTON MD [address] [place], [address], [facility] 05/13/2021 13:25:03 COVID-19, mRNA, LNP-S, PF, 30 mcg/0.3 mL dose 12/26/2020 completed BAIRON WESTON MD [address] [place] [address], [address], [facility] 05/13/2021 13:25:15 Past Encounters Encounter ID Performer Location Encounter Start Date Encounter Closed Date Diagnosis/Indication Diagnosis SNOMED-CT Code Diagnosis ICD10 Code Diagnosis Note [id number] Tonia Mullen (TERMED) [id number] [address] [place] [address] 08/22/2014 08:07:29 08/22/2014 10:10:00 Gynecologic examination 92734486 Cervical cancer screening guidelines discussed with pt. [...] regular aerobic and weight bearing exercise. Osteopenia 624291381 COB G 2010 >>> pt will recheck in 2014. [id number] [address] [email or web address] [address] 04/13/2015 09:36:01 04/13/2015 10:43:06 Osteopenia 190317589 2010 >>> 02/19/15 COBG Dexa Tneck=-2.3 , Ttotalhip= -1.1 (7.2%decre ase since 2010), Tlumbarspi ne=-2.5 (9.7% decrease since 2010) Patient has osteopenia . Reviewed T scores in general and patient's T scores from her most recent DEXA scan and all prior scans. Reviewed risk of fracture using WHO FRAX tool. Reviewed importance of Vitamin D intake (1000 IU po daily) and Calcium intake (6627-2725 mg po daily in divided doses throughout [...] will return in 2 months for recheck. [id number] [address] [place] [address] 06/18/2015 08:53:29 06/18/2015 10:08:45 Osteopenia 401554457 2010 >>> 02/19/15 COBG Dexa Tneck=-2.3 , [...] (1000 IU po daily) and Calcium intake (8200-2058 mg po daily in divided doses throughout [...] , atypical femur fracture, jaw surgery dangers. [id number] BAIRON WESTON MD [id number] [address] [place] [address] 08/27/2015 08:05:24 08/27/2015 09:58:04 Gynecologic examination 30148007 Z01.419 Z01.411 Cervical cancer screening guidelines discussed [...] exercise. Screening for malignant neoplasm of cervix 814804618 Z12.4 Z11.51 I reviewed the current cervical cancer screening recommenda tions with the patient today. Osteopenia 309895436 M85 .80 2010 >>> 02/19/15 COBG Dexa Tneck=-2.3 , Ttotalhip= -1.1 (7.2%decre ase since 2010), Tlumbarspi ne=-2.5 (9.7% decrease since 2010) >>> BONE DENSITY RESULTS 02/19/15 Tneck=-2.3 Ttotalhip= -1.1, Tlumbarspi ne=-2.5 (7% decrease and 9% decrease from 08/15) FRAX 10% and 1.6%.>>>> Started Fosamax. Patient has osteopenia . Reviewed importance of Vitamin D intake (1000 IU po daily) and Calcium intake (8643-2492 mg po daily in divided doses throughout [...] , atypical femur fracture, jaw surgery dangers. [id number] Tonia Mullen (TROY) [id number] [address] [place] [address] 04/29/2016 07:45:48 04/29/2016 08:25:13 Osteopenia 989215547 M85.80 She is on Fosamax and reports [...] (1000 IU po daily) and Calcium intake (8315-6712 mg po daily in divided doses throughout [...] fracture, jaw surgery dangers. Hypertensive disorder 38 956506 I10 Pt stopped her antihypert ensive medication s 2 years ago because she reports her physician took her off of them (Dr Price). I reviewed that these numbers today are unacceptab ly high. She now sees the providers at [facility]. She reports she will notify them immediatel y. I have suggested she go over this morning and see if they can see her today. I will provide her with a copy of this note. She reports she takes the BP at home and she reports that her diastolics at home are never over 78, [id number] BAIRON WESTON MD [id number] [address] [place] [address] 09/15/2016 07:53:47 09/15/2016 12:08:47 Gynecologic examination 71730303 Z01.411 Z01.419 Mammograph y planned today. Reviewed [...] needed. Screening for malignant neoplasm of cervix 885727172 Z12.4 Z11.51 Cervical cancer screening guidelines discussed with patient. Reviewed that if testing has been normal we can also test for HPV with cervical cytology and if both are negative, in some instances can repeat every 3 years.eulogio . Screening for malignant neoplasm of breast 297039883 Z12.39 I reviewed the current breast cancer screening recommenda tions with the patient today. Dietary ma ania surveillance 616626568 Z71.3 Discussed diet and exercise at length with patient. Reviewed general informatio n about carbohydra jerzy, proteins and fats with patient. Discussed sample diets. Reviewed options to assist with nutrition management including nutrition referrals, weight loss programs and apps like [employer] al. Reviewed internet sites which educate regarding nutrition. Discussed importance of exercises which include muscle building and those that help with aerobic exercises. Discussed current recommenda tions regarding exercise including the suggestion that individual s get 150 minutes of exercise weekly. Body mass index 25-29 - overweight 255375988 Z68.25 Osteopenia 396819353 M85 .80 She is on Fosamax and [...] (1000 IU po daily) and Calcium intake (6571-7639 mg po daily in divided doses throughout [...] , atypical femur fracture, jaw surgery dangers. [id number] BAIRON WESTON MD [id number] [address] [place] [address] 10/09/2016 08:45:48 10/09/2016 09:30:26 HPV - Human papillomavirus test positive 399712599 R87.810 09/15/16 HPV+ (16 & 18 negative), [...] evaluation , a cervical cancer can develop. [id number] BAIRON WESTON MD [id number] [address] [place] [address] 02/24/2017 08:37:07 02/24/2017 10:46:53 Osteopenia 973943807 M85.852 M85.88 02/24/17 COBG DEXA - OSTEOPENIA [...] (1000 IU po daily) and Calcium intake (7523-0305 mg po daily in divided doses throughout [...] on the same machine q 2 years. [id number] KRISTAL MORRISON NP [id number] [address] [facility] [address] 09/17/2017 09:40:52 09/17/2017 10:57:54 Gynecologic examination 08346020 Z01.411 Z01.419 Mammograph y done today. Reviewed [...] y. Screening for malignant neoplasm of cervix 838449820 Z12.4 Z11.51 Cervical cancer screening guidelines discussed with patient. Reviewed that if testing has been normal we can also test for HPV with cervical cytology and if both are negative, in some instances can repeat every 3 years.eulogio . Screening for malignant neoplasm of breast 377513783 Z12.39 I reviewed the current breast cancer screening recommenda tions with the patient today. Dietary mian jorge surveillance 860272923 Z71.3 Discussed diet and exercise at length with patient. Reviewed general informatio n about carbohydra jerzy, proteins and fats with patient. Discussed sample diets. Reviewed options to assist with nutrition management including nutrition referrals, weight loss programs and apps like [employer] al. Reviewed internet sites which educate regarding nutrition. Discussed importance of exercises which include muscle building and those that help with aerobic exercises. Discussed current recommenda tions regarding exercise including the suggestion that individual s get 150 minutes of exercise weekly. Body mass index 25-29 - overweight 112130233 Z68.25 [id number] KRISTAL MORRISON NP [id number] [address] [place] [address] 09/23/2018 09:13:34 09/23/2018 10:56:12 Gynecologic examination [id number] Z01.419 Z01.411 (1) Staying healthy sheet provided. [...] concerns. Screening for malignant neoplasm of cervix 701240348 Z12.4 Cervical cancer screening guidelines discussed with patient. Reviewed that if testing has been normal we can also test for HPV with cervical cytology and if both are negative, in some instances can repeat every 3 years.eulogio . Finding of body mass index 828470010 Z68.25 25.7 HPV - Ora n papillomavirus test positive 632106151 R87.626 [id number] KRISTAL MORRISON SUPA [id number] [address] [place] [address] 03/29/2019 08:40:43 03/29/2019 09:42:14 Osteopenia 220631770 M85.852 M85.88 Patient has osteopenia . Reviewed T scores in general and patient's T scores from her most recent DEXA scan and all prior scans. Reviewed risk of fracture using WHO FRAX tool. Reviewed importance of Vitamin D intake (1000 IU po daily) and Calcium intake (3819-7405 mg po daily in divided doses throughout [...] has been on it for 4 years. [id number] BAIRON WESTON MD [id number] [address] [place] [address] 10/10/2019 09:05:47 10/10/2019 10:59:30 Gynecologic examination 29480369 Z01.411 Mammograph y planned today. Reviewed importance [...] needed. Screening for malignant neoplasm of breast 742422494 Z12.39 I reviewed the current breast cancer screening recommenda tions with the patient today. Dietary mian jorge surveillance 913637362 Z71.3 Discussed diet and exercise at length [...] week. Body mass index 25-29 - overweight 591136950 Z68.26 26 Screening for osteoporosis 162919421 Z13.820 Human yuliana llomavirus deoxyribonucleic acid detected, high risk on cervical specimen 644792536 R87.810 I reviewed the current cervical cancer screening recommenda tions with the patient today. Administra tion of influenza vaccine 98284240 Z23 Patient is advised regarding influenza risks. Discussed vaccine risks and benefits. Reviewed side effects. Pt given the Vaccine Informatio n Statement. Questions answered. 10/10/2019 DECLINES [id number] BAIRON WESTON MD [id number] [address] [place] [address] 10/11/2020 10:36:03 10/11/2020 12:10:22 Gynecologic examination 13525413 Z01.411 Mammograph y planned today. Reviewed importance [...] needed. Screening for malignant neoplasm of cervix 339552131 Z12.4 Z11.51 I reviewed the current cervical cancer screening recommenda tions with the patient today. Screening for malignant neoplasm of breast 961790752 Z12.39 I reviewed the current breast cancer screening recommenda tions with the patient today. Dietary ma nagement surveillance 311629891 Z71.3 Discussed diet and exercise at length [...] week. Body mass index 25-29 - overweight 805922965 Z68.29 26 Screening for osteoporosis 067632457 Z13.820 Osteopenia 941023629 M85 .852 M85.88 02/24/17 COBG DEXA - [...] (1000 IU po daily) and Calcium intake (6104-9222 mg po daily in divided doses throughout [...] the same machine q 2 years. Stress 33278439 Z73.3 Finding re lating to psychosocial functioning 456690927 Z65.9 This patient is feeling the effects [...] meditation , music, prayer, guided imagery etc... [id number] BAIRON WESTON MD [id number] [address] [place] [address] 05/13/2021 12:21:23 05/13/2021 13:26:39 Osteopenia 932620231 M85.852 M85.88 03/05/21 COBG DEXA - OSTEOPENIA [...] (1000 IU po daily) and Calcium intake (4359-4861 mg po daily in divided doses throughout [...] Guarantor Name 09/23/2018 1 [place] [id number] Nilda Sanches Tysinger [id number] Nilda Sanches Tysinger 09/23/2018 2 () Nilda Sanches Tysinger [id number] Nilda B Tysinger 03/29/2019 1 [place] [id number] Nilda B Tysinger [id number] Nilda B Tysinger 03/29/2019 2 () Nilda B Tysinger [id number] Nilda B Tysinger 10/10/2019 1 [place] [id number] Nilda B Tysinger [id number] Nilda B Tysinger 10/10/2019 2 () Nilda B Tysinger [id number] Nilda B Tysinger 10/11/2020 1 [place] [id number] Nilda B Tysinger [id number] Nilda B Tysinger 10/11/2020 2 () Nilda B Tysinger [id number] Nilda B Tysinger 05/13/2021 1 [place] [id number] Nilda B Tysinger [id number] [id number] Nilda B Tysinger 05/13/2021 2 () Nilda B Tysinger [id number] Nilda B Tysinger Notes Date Note Type Note Provider Name and Address Organization Details Recorded Time 09/23/2018 text/html Annual Postmenop ausal ([facility])Reported bypatient.Patient Relationship To Practice:established patient Current Medical [...] stays around 125-135/75-85. KRISTAL MORRISON NP [address], [place], [address], [facility] 09/23/2018 10:54:21 03/29/2019 text/html Osteoporosis/Ost eopen ia ([facility])Reported bypatient.* Severity:increased BMDNotes:Patient presents today to review BD results. KRISTAL MORRISON NP [address], [place], [address], [facility] 03/29/2019 09:37:31 10/10/2019 text/html Annual Postmenop ausal ([facility])Reported bypatient.Patient Relationship To Practice:established patient Current Medical [...] Density Study:up-to-date Patient has:Primary Care Physician: yes; Toilet And Laundry Soap Supervisor: yes; Caser: no BAIRON WESTON MD [address], [place], [address] [place] [address] 10/10/2019 10:56:11 10/11/2020 text/html Annual Postmenop ausal ([facility])Reported bypatient.Patient Relationship To Practice:established patient Current Medical [...] Density Study:up-to-date Patient has:Primary Care Physician: yes; Toilet And Laundry Soap Supervisor: yes; Caser: noNotes:Pt. presents today for her annual exam and mammo. Pt. has no concerns today. Have you been exposed to anyone positive for COVID, have any pending COVID test or any COVID symptoms? No BAIRON WESTON MD [address], [address] 10/11/2020 17:40:06 05/13/2021 text/html Osteoporosis/Ost eopen ia ([facility])Reported bypatient.* Location:total hip left; femoral neck left; lumbar spine * Quality:osteopenia lumbar spine (and hip) Year of Diagnosis:2014 * Severity:lowest t-score -2.1 * Context:postmenopausa l Diagnostic TestingOther:DEXA Risk Factors:age:65; postmenopausal Currentweight bearing exercises no change; calcium supplements; alendronate (Fosamax) Previous Treatmentsweight bearing exercises no change; calcium supplements; alendronate (Fosamax) BAIRON WESTON MD [address], [place], [address] 05/13/2021 13:26:23 OBGyn Episode Ob Episode Information Episode Created Date Number of Fetuses Patient Bloodtype Patient rh Status Prepregnancy Weight lbs Domestic Partner Domestic Partner Phone Father Name Child Care Supervisor Status 08/21/20 14 1 CLOSED Fetus Data First Name Last Name Admitted to NICU Weight (g) Sex Living Outcome Pediatric Complications Fetus ID Race Codes Race Delivery Type 3090.09 55 F [id number] Amanuel Calculation Initial Amanuel Date Initial Exam [...] Domestic Partner Domestic Partner Phone Father Name Child Care Supervisor Status 08/21/20 14 1 CLOSED Fetus Data First Name Last Name Admitted to NICU Weight (g) Sex Living Outcome Pediatric Complications Fetus ID Race Codes Race Delivery Type 3486.98 85 M [id number] Amanuel Calculation Initial Amanuel Date Initial Exam [...]
--- OUTSIDE RECORDS SUMMARY | 2025-01-05 11:09 | XMS_ITS | Clinical Summary ---
Author Organization [facility] Facility Address [address] [address] Care Team Providers Care Sighter Name Role Phone Hillary Aguayo MD Primary Care Provider [phone] Allergies Active Allergy Reactions Criticality Noted Date [...] Colorectal Cancer Screening: Sigmoidoscopy 2005 Influenza Vaccine (Season Ended) 2025 Hepatitis B Vaccine Aged Out No longe r eligible based on patient's age to complete this topic Insurance [employer] Care Teams Sighter Relationship Specialty Start Date End Date Hillary Aguayo MD [address] [place] [address] PCP - General Internal Medicine 12/20/21
== END 2025-01-05 10:16 | disposition home or self-care (01) ==
LOC: HO.MAMMO 10:15
PROVIDERS: PCP Internal Medicine; Visit Provider Internal Medicine
DX: Z12.31 Encounter for screening mammogram for malignant neoplasm of breast (principal)
CPT/HCPCS: 77063; 77067

== ENCOUNTER → 2025-01-05 10:45 | Outpatient (BNV) | payer OTHER, SELFPAY | PROVIDERS: PCP Internal Medicine; Visit Provider Internal Medicine | DX: Z12.31 Encounter for screening mammogram for malignant neoplasm of breast (principal) | CPT/HCPCS: 77063; 77067 ==

== ENCOUNTER 2025-02-14 13:25 | Outpatient (AMB) | payer OTHER, SELFPAY ==
--- NOTE | 2025-02-14 13:36 | A.OFFPC_ITS ---
Vital Signs 02/14/25 13:41 Height 5 ft 2.5 in Weight 141 lb 8 oz BMI 25.5 BP 116/74 Blood Pressure Location Lt brachial Position Sitting Respiration 14 Pulse 83 Pulse Source Pulse Oximeter Pulse Oximetry (%) 96 Oxygen Delivery Method Room Air Intake Visit Reasons: respiratory Intake Note: Urgent care follow up. Diagnosed with asthmatic bronchitis. They recommended a pulmonary function test. On last day a prednisone. Armature Winder Required: No Allergies losartan [From Cozaar] Allergy (Unknown, Verified 02/14/25 13:37) Unknown Tobacco use date assessed: 02/14/25 Fall risk assessment: 1 Fall in past year Last assessed Fall Risk: 02/14/25 Dental Screening Dental Screen Date: 02/14/25 Did you have a dental visit in the last 12 months?: Yes Did you have a dental problem in the last 6 months where you did not have access to dental care?: No Was dental information given to patient?: Patient has dentist HPI HPI Comments History of Present Illness Details The patient is a 69 year old female with a past medical history of hypertension, CKD stage 2, osteopenia, hld, borderline abnormal TFTs, presenting for follow up Allergies/RAD: Seen in urgent care recently for another flare in respiratory symptoms. +wheezing, shortness of breath. Had similar incident last fall and last February. Currently mid doxycycline on last day of prednisone -improving, some r esidual wheeze. Currently on radha, previously on zyrtec Hypertension: On hctz 12.5 mg daily DXA 06/2023. Previously took fosamax. continues vitamin D, MV Follows with dynamo tender-Dr Jones at [facility] Colon cancer [id number] in 10 years Vision-sees [facility] [place] see HPI PHYSICAL EXAM: GENERAL: Alert and oriented x 3. NAD EYES: EOMI. Anicteric. HENT: Moist mucous membranes. No scleral icterus. No cervical lymphadenopathy. LUNGS: scant wheeze CARDIOVASCULAR: Regular rate and rhythm. No murmur. No JVD. ABDOMEN: Soft, non-tender +bs EXTREMITIES: No edema. Non-tender. SKIN: No rashes or lesions. Warm. NEUROLOGIC: No focal neurological deficits. CN II-XII grossly intact PSYCHIATRIC: Cooperative. Appropriate mood and affect [facility] Medical History Benign fibromatous neoplasm of skin Osteopenia Kidney failure Hypertension Chronic kidney disease Surgical History History of surgical removal of skin lesion Family History Mother Alcoholism Father Dementia Hypertension Cardiovascular disease Sister Hypertension Sister Hypertension Social History Household Members: Children and Other Household Members Other:: 2 Grandchildren Housing: House Alcohol intake: current Patient Tobacco Use Status: Never used Tobacco e-Cigarette/Vaping Use: Never Used service: No Current occupational status: retired Cognitive needs: No Hearing needs: No Vision needs: No Questionnaire Thrive Questionnaire Date Thrive assessed: 12/06/24 I am a: Patient What is your living situation today?: I have a steady place to live Within the past 12 months, did the food you bought not last and you didn't have the money to get more?: Never true Within the past 12 months, did you worry whether your food would run out before you got money to buy more?: Never true Do you have trouble paying for medicines?: No Do you have trouble getting transportation to medical appointments?: No Do you have trouble paying your heating and electricity bill?: No Do you have trouble taking care of your child, family member or friend?: No Do you have trouble with day-to-day activities such as bathing, preparing meals, shopping, managing finances, etc.?: No Are you currently unemployed and looking for a job?: No Are you interested in more education?: No Please select the resources that you would like help with: None Currently or been in a relationship where the following occur: No concerns reported THRIVE Score: 0 AUDIT C Alcohol Use Questionnaire (AUDIT-C) 1. How often do you have a drink containing alcohol?: Never 3. How often do you have six or more drinks on one occasion?: Never Total Score: 0 DIONE-7 AMB Questionnaire DIONE-7 Date DIONE - 7 assessed: 12/13/24 Source: Developed by Drs. Hector Presley, Ann Rivers, Herve Jackson and colleagues, with an educational d[place] from [employer]. Physical exam (Primary Care) Vital Signs: Last Vital Signs Pulse 83 02/14/25 13:41 Resp 14 02/14/25 13:41 BP 116/74 02/14/25 13:41 Pulse Ox 96 02/14/25 13:41 Oxygen Delivery Method Room Air 02/14/25 13:41 BMI result Body Mass Index 25.5 Tobacco/Smoking Status: Tobacco use Status Tobacco use date assessed 02/14/25 02/14/25 13:43 Patient Tobacco Use Status Never used Tobacco 02/14/25 13:43 e-Cigarette/Vaping Use Never Used 02/14/25 13:43 Thrive Assessment: Date of Thrive Assessment Date Thrive assessed 12/06/24 02/14/25 13:43 Currently or been in a relationship where the following occur: No concerns reported Coding Level of Care Code Est Pt Level 4 (53139) Diagnoses Wheezing R06.2 Primary hypertension I10 Hypertension type: primary hypertension Assessment & Plan Assessment & Plan (1) Wheezing: Code(s): R06.2 - Wheezing Category: Medical (2) Hypertension: Code(s): I10 - Essential (primary) hypertension Category: Medical Qualifiers: Hypertension type: primary hypertension Qualified Code(s): I10 - Essential (primary) hypertension Plan Wheezing, recurrent reactive airway disease-referral to pulmonary, PFTs Albuterol refilled Orders: Orders PFT pulmonary function test Today R06.2 - Wheezing Referrals Pulmonology Referral R06.2 - Wheezing Medications: Refilled albuterol sulfate 90 mcg/actuation 1 inh inhalation .every 4 hours 30 days PRN 8.5 grams 2RF shortness of breath or wheezing
[2025-02-14 13:41] VITALS: BP 116/74; PULSE 83; RESP 14; O2SAT 96; BMI 25.5
--- OUTSIDE RECORDS SUMMARY | 2025-02-14 14:31 | XMS_ITS | Patient Health Record ---
Author Organization [facility] Address [address] [place] [address] [address] [place] [address] Care Team Providers Care Ict Programmer Name Role Phone Luna NGUYEN MD, YESSI Primary Care Provider PIERRE Tong Unavailable [phone] Allergies Allergen (clinical drug ingredient) Drug/Non Drug [...] W/U Status Risk Notes Problem Essential hypertension (60382001) Essential (primary) hypertension (I10) Active confirmed Problem Chronic kidney disease, stage 2 (mild) (N18.2) Active confirmed Problem COVID-19 (245314786) COVID-19 (U07.1) Active confirmed Plan Of Treatment Pending Test Test Name Order Date MM Digital Screening Mammogram 3D 2021 MM Digital Screening Mammogram 3D 2023 Insurance Providers Payer Name Payer Address Payer Phone Subscriber Number Group Number Insured Name Patient Relationship to Insured Coverage Start Date Coverage End Date HU[employer] MEDICARE [address] [address] [place] [address] [id number] PPO CAMILLE ROBERT Self - patient is the insured [employer] [facility] [address] [address] [place] [address] [id number] CAMILLE ROBERT Self - patient is the insured MEDICARE [address] [place] [id number] DIANE OBRIENKIE Self - patient is the insured Medical (General) History Medical History History ICD Code Essential (primary) hypertension I10 Chronic kidney disease, stage 2 (mild) N 18.2 COVID-19 U07.1 Surgical History Surgery Date(Month/Year) Colonoscopy 12/2020 Hospitalization History Reason Date(Month/Year) 2 Vaginal Deliveries
--- OUTSIDE RECORDS SUMMARY | 2025-02-14 14:31 | XMS_ITS | Data Portability ---
Author Organization [facility]'s [facility], [id number]IP Address [address] [place] [address] Assessment No assessment recorded. Plan of Treatment Reminders Order Date Submit Date Provider Last Modified By Organization Details Last Modified Time Details Appointments None recorded. Lab pap, IG + HPV - 2019 020 DBA_PATCH_ [id number] [facility] ([facility], [address] [place] [address], [address], 03:37:50 pap, IG + HPV 2017 018 DBA_PATCH_ [id number] [facility] ([facility], [address] [place] [address], [address], 03:36:07 Referral None recorded. Procedures None recorded. Surgeries None recorded. Imaging None recorded. Medication Orders alendronat e 70 mg tablet 2020 021 INTERFACE [employer] [id number], [address], [place], [place], [id number], 17:40:09 Patient TargetsNo targets recorded. Patient Instructions Encounter Date Encounter Id Patient Instructions Last Modified By Organization Details Last Modified Time 03/29/2019 [id number] preventing osteoporosis: care instructions [email or web address] Not available 03/29/2019 09:37:26 10/10/2019 [id number] breast self-exam : care instructions ndandrea Not available 10/10/2019 10:55:12 learning about breast cancer screening ndandrea Not available 10/10/2019 10:55:12 10/11/2020 [id number] breast self-exam : care instructions ndandrea Not available 10/11/2020 12:08:19 learning about breast cancer screening ndandrea Not available 10/11/2020 12:08:19 05/13/2021 [id number] preventing osteoporosis: care instructions ndandrea Not available 05/13/2021 13:05:47 Reason for Referral None Reported. Results Created Date Observation Date Name Description Value Unit Range Abnormal Flag Note LastModifiedBy Organization Detail LastModifiedTime 09/23/20 18 09/24/2018 pap, IG + HPV interpretati on NIL NEGAT DEANNE FOR INTRA EPITH ELIAL LESIO N AND MALIG SERGEY . Not Available [facility] ([facility]) [address] [place], [address], 09/27/2018 06:06:55 09/23/20 18 09/24/2018 pap, IG + HPV category: NIL Negat deanne for Intra epith elial Lesio n Not Available [facility] ([facility]) [address] [place], [address], 09/27/2018 06:06:55 09/23/20 18 09/24/2018 pap, IG + HPV adequacy: ENDO Satis facto ry for evalu ation . Endoc ervic al and/o r squam ous metap lasti c cells (endo cervi iraida compo nent) are prese nt. Not Available [facility] ([facility]) [address] [place], [address], 09/27/2018 06:06:55 09/23/20 18 09/24/2018 pap, IG + HPV clinician provided ICD10: Sherman gonzalez Z12.4 Not Available [facility] ([facility]) [address] [place], [address], 09/27/2018 06:06:55 09/23/20 18 09/24/2018 pap, IG + HPV performed by: Sherman mckeon, Cytot more gonzalez (ASCP ) Not Available [facility] ([facility]) [address] [facility], [place], [address], 09/27/2018 06:06:55 09/23/20 18 09/24/2018 pap, IG + HPV cytology history: Commen t Date LCA Speci men ID PAP Test Resul t HPV Test Resul t 09/17 348-G 74-00 11-0 97518 5 NIL 65321 1 N 09/15 347-G 74-00 40-0 13209 5 NIL 44872 1 P 09/15 347-G 74-00 40-0 46615 1 N 09/15 347-G 74-00 40-0 97663 2 N 08/27 327-G 74-00 43-0 69691 5 NIL 22370 1 N 08/13 317-G 74-00 12-0 55731 3 NIL 96021 3 N 07/24 293-G 74-00 34-0 69371 4 NIL Not Available [facility] ([facility]) [address] [facility], [place], [address], 09/27/2018 06:06:55 09/23/20 18 09/24/2018 pap, IG [...] ts do occur . Not Available [facility] ([facility]) [address] [place], [address], 09/27/2018 06:06:55 09/23/20 18 09/24/2018 pap, IG + HPV test methodology: Commen t This liqui d based ThinP rep(R ) pap test was scree ezequiel with the use of an image guide d systfrench m. Not Available [facility] ([facility]) [address] [place], [address], 09/27/2018 06:06:55 09/23/20 18 09/26/2018 pap, IG + HPV HPV aptima Negati ve negati ve This test detec ts fourt een high- risk HPV types (16/1 8/31/ 33/35 /39/4 5/ 51/52 /56/5 8/59/ 66/68 ) witho ut diffe renti ation . Not Available [facility] ([facility]) [address] [facility], [place], [address], 09/27/2018 06:06:55 10/10/19 20 10/11/2019 pap, IG + HPV interpretati on NILM NEGAT DEANNE FOR INTRA EPITH ELIAL LESIO N OR MALIG SERGEY . Not Available [facility] ([facility]) [address] [facility], [place], [address], 10/12/2019 07:38:38 10/10/19 20 10/11/2019 pap, IG + HPV category: NIL Negat deanne for Intra epith elial Lesio n Not Available [facility] ([facility]) [address] [facility], [place], [address], 10/12/2019 07:38:38 10/10/1910/11/2019 pap, IG + HPV adequacy: ENDO Satis facto ry for evalu ation . Endoc ervic al and/o r squam ous metap lasti c cells (endo cervi iraida compo nent) are prese nt. Not Available [facility] ([facility]) [address] [facility], [place], [address], 10/12/2019 07:38:38 10/10/1910/11/2019 pap, IG + HPV clinician provided ICD10: COMMEN T R87.8 10 Not Available [facility] ([facility]) [address] [place], [address], 10/12/2019 07:38:38 10/10/1910/1110/11/2019 pap, IG + HPV performed by: SHERMAN sloan Cytot more gonzalez (ASCP ) Not Available [facility] ([facility]) [address] [place], [address], 10/12/2019 07:38:38 10/10/19 20 10/11/2019 pap, IG + HPV cytology history: COMMEN T Date LCA Speci men ID PAP Test Resul t HPV Test Resul t 09/23 354-G 74-00 52-0 62801 5 NIL 67598 1 N 09/17 348-G 74-00 11-0 81775 5 NIL 33574 1 N 09/15 347-G 74-00 40-0 79752 5 NIL 30346 1 P 09/15 347-G 74-00 40-0 22193 1 N 09/15 347-G 74-00 40-0 52212 2 N 08/27 327-G 74-00 43-0 70948 5 NIL 19881 1 N 08/13 317-G 74-00 12-0 38193 3 NIL 43141 3 N Not Available [facility] ([facility]) [address] [facility], [place], [address], 10/12/2019 07:38:38 10/10/19 20 10/11/2019 pap, IG [...] ts do occur . Not Available [facility] ([facility]) [address] [place], [address], 10/12/2019 07:38:38 10/10/19 20 10/11/2019 pap, IG + HPV test methodology: COMMEN T This liqui d based ThinP rep(R ) pap test was danyelle nieves with the use of an image guide brigida angeles Not Available [facility] ([facility]) [address] [facility], [place], [address], 10/12/2019 07:38:38 10/10/19 20 10/12/2019 pap, IG + HPV HPV aptima NEGATI VE negati ve This nucle ic acid ampli ficat ion test detec ts fourt een high- risk HPV types (16,1 8,31, 33,35 ,39,4 5,51, 52,56 ,58,5 9,66, 68) witho ut diffe renti ation . Not Available [facility] ([facility]) [address] [facility], [place], [address], 10/12/2019 07:38:38 09/29/20 18 09/23/2018 MAMMO , scree ross, tomos ynthe sis, bilat eral No observ ation record ed. [email or web address] [id number] [address] [facility] [place], [address], 10/06/2018 08:37:54 09/29/20 18 09/23/2018 MAMMO , scree ross, tomos ynthe sis, bilat eral No observ ation record ed. [email or web address] [id number] [address] [place] [place], [address], 09/29/2018 14:56:08 03/01/20 19 03/01/2019 DEXA, axial skele ton No observ ation record ed. [email or web address] Not Available 03/28 13:47:06 10/11/19 20 10/10/2019 MAMMO , scree ross, tomos ynthe sis, bilat eral No observ ation record ed. [email or web address] [id number] [address] [place] [place], [address], 10/12/2019 15:03:53 10/11/19 20 10/10/2019 MAMMO , scree ross, tomos ynthe sis, bilat eral No observ ation record ed. [id number] [address], [place], [address], 10/11/2019 15:53:13 10/16/19 21 10/16/2020 MAMMO , scree ross, tomos ynthe sis, bilat eral No observ ation record ed. [email or web address] [id number] [address]amm[address], [place], [address], 10/17/2020 11:45:36 10/16/19 21 10/16/2020 MAMMO , scree ross, tomos ynthe sis, bilat eral No observ ation record ed. [email or web address] [id number] t [address]amm[address], [place], [address], 10/17/2020 11:52:06 03/05/20 21 03/05/2021 DEXA, axial skele ton No observ ation record ed. [email or web address] In-House Results For Internal Use Only, Do Not Delete/merge, [id number] 05/13/2021 13:23:37 Result Notes Documentation Provider Name [...] in 2 years. Nidia Loyola (TERMED) null, [facility] 03/28/2019 13:47:06 Dexa, Axial Skeleton : Bone density Bone Density Interpretation: osteopenia Lowest T-score: -2.1 Femur neck Percentage of change from last bone density: 6% increase Frax Score: Not applicable due to prior/current medical therapy Recommended treatment: Optimize dietary calcium and vitamin D intake to 4755-3101 mg daily, Weight-bearing exercise for 30 minutes 3 times weekly, This is an adequate study. Provider Reading Study: Dr. Bairon Andres Followup planned: Repeat DEXA 2 years BAIRON WESTON MD [address] [facility] [employer],[place], [address], [facility] 05/13/2021 13:23:37 Problems Name Problem SNOMED Code Status Onset Date Resolution Date Notes Provider Name and Address Organization Details Recorded Time HPV - Human papilloma virus test positive Active 2015 Neg Mayte Desir [facility] 6 10:10:09 Osteopeni a 207113512 Active 201003/05/21 COBG DEXA - OSTEOPENIA - Tlumbarspi ne=-1.4 , Tneckoffem ur=-2.1 , Ttotalhip= -0.5 (When this study is compared to the study done 03/01/19 there is a statistica lly significan t increase of +6.7% in the left hip) FRAX On bisphospho nates (started in 02/2015) BAIRON WESTON MD [address] [facility] [place], [address] , [facility] 1 16:37:42 Seasonal allergic rhinitis 354330316 Active BAIRON WESTON MD [address] [facility] [place], [address] , [facility] 6 08:15:47 Hypertens deanne disorder 96081258 Active BAIRON WESTON MD [address] [facility] [place], [address] , [place] [facility] 6 08:22:19 Problem Notes None recorded. Procedures Surgical History Date Name Laterality Status Provider Name and Address Organization Details Recorded Time 10/11/19 21 Date of Last Mammogram completed Kyung Garcia (TERMED) [facility] 10/11/2020 10:48:11 10/10/19 20 Date of Last Pap Smear completed Cinda Castillo(TE RM) [facility] 10/10/2020 10:11:02 08/22/20 14 completed Mary Ann Calderon (TERMED) [facility] 08/22/2014 09:10:09 10/05/19 13 Date of Last Colonoscopy completed Carli Cole [facility] 09/23/2018 10:19:56 10/05/19 12 GI- Colonoscopy completed BAIRON WESTON MD [address] [place] [address],[facility], [place], [address], [facility] 08/22/2014 09:52:40 08/06/20 11 completed Ale Angelo (TERMED) [facility] 08/21/2014 11:37:54 Surgery-other completed Ale villegas (TERMED) [facility] 08/21/2014 11:37:53 ENT-Adenoidecto my/Tonsillectom y completed Ale Angelo (TERMED) [facility] 08/21/2014 11:37:53 Imaging Results Imaging Date Name Status LastModified by Organiz ation Details LastModified Time 09/23/2018 MAMMO, screening, tomosynthesis, bilateral completed [email or web address] [id number] [address] [place], [address], 10/06/2018 08:37:54 09/23/2018 MAMMO, screening, tomosynthesis, bilateral completed [email or web address] [id number] [address] [place], [address], 09/29/2018 14:56:08 03/01/2019 DEXA, axial skeleton completed [email or web address] Information not available 03/28/2019 13:47:06 10/10/2019 MAMMO, screening, tomosynthesis, bilateral completed [email or web address] [id number] [address] [facility], [place], [address], 10/12/2019 15:03:53 10/10/2019 MAMMO, screening, tomosynthesis, bilateral completed [email or web address] [id number] [address], [place], [address], 10/11/2019 15:53:13 10/16/2020 MAMMO, screening, tomosynthesis, bilateral completed [email or web address] [id number] [address], [place], [address], 10/17/2020 11:45:36 10/16/2020 MAMMO, screening, tomosynthesis, bilateral completed [email or web address] [id number] [address], [place], [address], 10/17/2020 11:52:06 03/05/2021 DEXA, axial skeleton completed [email or web address] In-House Results For Internal Use Only, Do Not Delete/merge, [id number] 05/13/2021 13:23:37 Procedure Notes None recorded. Medical Equipment None Reported. Allergies Allergen ID Allergen Name Allergen Category Reaction Reaction Severity Criticality Documentation Date Start Date Code Code System Note Provider Name and Address Organization Details Recorded Time 464370 Cozaar medicatio n Not available Not available Not available 08/22/2014 95607 8 RxNorm Mary Ann Calderon (TERMED) [place], [place] - [facility] 4 09:10:09 Medications Name Sig Start Date [...] Address Organization Details Last Updated DateTime 8 64973.5 2 g 25.7 kg/m2 157.86 cm 67 /min 176 mm[Hg] 73 mm[Hg] 180 mm[Hg] 80 mm[Hg] Carli Cole [facility] 8 10:18:01 Date Recorded Body height Body mass index (BMI) Body weight Heart rate Systolic blood pressure Diastolic blood pressure Provider Name and Address Organization Details Last Updated DateTime 9 157.86 cm 26.2 kg/m2 13138.0 2 g 67 /min 157 mm[Hg] 89 mm[Hg] Cinda flynn(TERM) [facility] 9 09:03:50 Date Recorded Body height Body mass index (BMI) Body weight Heart rate Systolic blood pressure Diastolic blood pressure Provider Name and Address Organization Details Last Updated DateTime 0 157.86 cm 26 kg/m2 24172.7 1 g 88 /min 131 mm[Hg] 80 mm[Hg] Renu Jose Angel TERMED [facility] 0 10:06:14 Date Recorded Body weight Body mass index (BMI) Body height Heart rate Body temperature Systolic blood pressure Diastolic blood pressure Provider Name and Address Organization Details Last Updated DateTime 1 40813.5 2 g 25.7 kg/m2 157.86 cm 86 /min 98.1 [degF] 137 mm[Hg] 87 mm[Hg] Kyung Garcia (TERMED) [facility] 1 11:33:02 Date Recorded Body height Body mass index (BMI) Body weight Body temperature Heart rate Systolic blood pressure Diastolic blood pressure Provider Name and Address Organization Details Last Updated DateTime 1 157.86 cm 26 kg/m2 82174.7 1 g 98.6 [degF] 74 /min 118 mm[Hg] 76 mm[Hg] Carli Cole [facility] 1 12:57:51 Social History Question Answer Notes LastModified by Organizat ion Details LastModified Time Tobacco Smoking Status Former Smoker teenager Micheline Simeon (TERMED) [facility], [facility] 09/15/2016 08:50:55 Do You Have An Advance Directive? Yes Information not available 09/23/2018 Is Blood Transfusion Acceptable In An Emergency? Yes [email or web address] Information not available 09/23/2018 What Is Your Level Of Caffeine Consumption? Moderate 1 Cup Coffee Daily, 1 Soda Every Other Day [email or web address] Information not available 09/23/2018 What Type Of Diet Are You Following? REGULAR Eats Healthy [email or web address] Information not available 09/23/2018 Which Illicit Or Recreational Drugs Have You Used? None [email or web address] Information not available 08/21/2014 How Many Days In The Past Year Have You Had A Heavy Drinking Consumption (4+ Female, 5+ Male)? 0 Information not available 09/15/2016 History Of Domestic Violence No [email or web address] Information not available 08/21/2014 Country Of [facility] [email or web address] Informat ion not available 09/23/2018 Ethnic Background [email or web address] Information not available 09/23/2018 Marital Status Passed 09/11/11 - Battled Bone Cancer [email or web address] Information not available 08/21/2014 What Was The Date Of Your Most Recent Tobacco Screening? 10/11/2020 [email or web address] Information not available 10/11/2020 Performs Monthly Self-breast Exam? Yes [email or web address] Information not available 09/23/2018 Seat Belts Used Routinely Yes [email or web address] Information not available 08/22/2014 Are You Sexually Active? No Information not available 09/15/2016 Are You Passively Exposed To Smoke? No [email or web address] Information not available 09/23/2018 How Much Tobacco Do You Smoke? No [email or web address] Information not available 08/21/2014 General Stress Level Low [email or web address] Information not available 08/22/2014 How Many Years Have You Smoked Tobacco? 0 [email or web address] Information not available 08/21/2014 Do You Have [...] ion Details LastModified Time What is your level of alcohol consumption? None [email or web address] Information not available 08/21/2014 Are you currently employed? Yes Information not available 09/23/2018 What is your occupation? [employer] [email or web address] Information not available 08/22/2014 What is your exercise level? Moderate Walks 30 minutes daily [email or web address] Information not available 08/21/2014 Mental Status None [...] 30 mcg/0.3 mL dose 12/06/2020 completed BAIRON EWSTON MD [address] [place], [address], [facility] 05/13/2021 13:25:03 COVID-19, mRNA, LNP-S, PF, 30 mcg/0.3 mL dose 12/26/2020 completed BAIRON WESTON MD [address] [facility], [address], [facility] 05/13/2021 13:25:15 Past Encounters Encounter ID Performer Location Encounter Start Date Encounter Closed Date Diagnosis/Indication Diagnosis SNOMED-CT Code Diagnosis ICD10 Code Diagnosis Note [id number] BAIRON WESTON MD [id number] [address] [place] [address] 08/22/2014 08:07:29 08/22/2014 10:10:00 Gynecologic examination 65823326 Cervical cancer screening guidelines discussed with pt. [...] regular aerobic and weight bearing exercise. Osteopenia 691811715 COB G 2010 >>> pt will recheck in 2014. [id number] BAIRON WESTON MD [id number] [address] [place] [address] 04/13/2015 09:36:01 04/13/2015 10:43:06 Osteopenia [id number] 2010 >>> 02/19/15 COBG Dexa Tneck=-2.3 , Ttotalhip= -1.1 (7.2%decre ase since 2010), Tlumbarspi ne=-2.5 (9.7% decrease since 2010) Patient has osteopenia . Reviewed T scores in general and patient's T scores from her most recent DEXA scan and all prior scans. Reviewed risk of fracture using WHO FRAX tool. Reviewed importance of Vitamin D intake (1000 IU po daily) and Calcium intake (8802-9846 mg po daily in divided doses throughout [...] will return in 2 months for recheck. [id number] BAIRON WESTON MD [id number] [address] [place] [address] 06/18/2015 08:53:29 06/18/2015 10:08:45 Osteopenia [id number] 2010 >>> 02/19/15 COBG Dexa Tneck=-2.3 , [...] (1000 IU po daily) and Calcium intake (2716-0754 mg po daily in divided doses throughout [...] , atypical femur fracture, jaw surgery dangers. [id number] BAIRON WESTON MD [id number] [address] [place] [address] 08/27/2015 08:05:24 08/27/2015 09:58:04 Gynecologic examination 78062735 Z01.419 Z01.411 Cervical cancer screening guidelines discussed [...] exercise. Screening for malignant neoplasm of cervix 253623156 Z12.4 Z11.51 I reviewed the current cervical cancer screening recommenda tions with the patient today. Osteopenia 924635323 M85 .80 2010 >>> 02/19/15 COBG Dexa Tneck=-2.3 , Ttotalhip= -1.1 (7.2%decre ase since 2010), Tlumbarspi ne=-2.5 (9.7% decrease since 2010) >>> BONE DENSITY RESULTS 02/19/15 Tneck=-2.3 Ttotalhip= -1.1, Tlumbarspi ne=-2.5 (7% decrease and 9% decrease from 08/15) FRAX 10% and 1.6%.>>>> Started Fosamax. Patient has osteopenia . Reviewed importance of Vitamin D intake (1000 IU po daily) and Calcium intake (2475-9047 mg po daily in divided doses throughout [...] , atypical femur fracture, jaw surgery dangers. [id number] BAIRON WESTON MD [id number] [address] [facility] [place] [address] 04/29/2016 07:45:48 04/29/2016 08:25:13 Osteopenia 665576132 M85.80 She is on Fosamax and reports [...] (1000 IU po daily) and Calcium intake (2139-5672 mg po daily in divided doses throughout [...] fracture, jaw surgery dangers. Hypertensive disorder 38 464236 I10 Pt stopped her antihypert ensive medication s 2 years ago because she reports her physician took her off of them (Dr Price). I reviewed that these numbers today are unacceptab ly high. She now sees the providers at [facility]. She reports she will notify them immediatel y. I have suggested she go over this morning and see if they can see her today. I will provide her with a copy of this note. She reports she takes the BP at home and she reports that her diastolics at home are never over 78, [id number] BAIRON WESTON MD [id number] [address] [place] [address] 09/15/2016 07:53:47 09/15/2016 12:08:47 Gynecologic examination 89899123 Z01.411 Z01.419 Mammograph y planned today. Reviewed [...] needed. Screening for malignant neoplasm of cervix 425888687 Z12.4 Z11.51 Cervical cancer screening guidelines discussed with patient. Reviewed that if testing has been normal we can also test for HPV with cervical cytology and if both are negative, in some instances can repeat every 3 years.eulogio . Screening for malignant neoplasm of breast 468185140 Z12.39 I reviewed the current breast cancer screening recommenda tions with the patient today. Dietary ma ania surveillance 576478946 Z71.3 Discussed diet and exercise at length with patient. Reviewed general informatio n about carbohydra jerzy, proteins and fats with patient. Discussed sample diets. Reviewed options to assist with nutrition management including nutrition referrals, weight loss programs and apps like [employer]. Reviewed internet sites which educate regarding nutrition. Discussed importance of exercises which include muscle building and those that help with aerobic exercises. Discussed current recommenda tions regarding exercise including the suggestion that individual s get 150 minutes of exercise weekly. Body mass index 25-29 - overweight 265424542 Z68.25 Osteopenia 010199979 M85 .80 She is on Fosamax and [...] (1000 IU po daily) and Calcium intake (3990-3779 mg po daily in divided doses throughout [...] , atypical femur fracture, jaw surgery dangers. [id number] BAIRON WESTON MD [id number] [address] [place] [address] 10/09/2016 08:45:48 10/09/2016 09:30:26 HPV - Human papillomavirus test positive 384979309 R87.810 09/15/16 HPV+ (16 & 18 negative), [...] evaluation , a cervical cancer can develop. [id number] BAIRON WESTON MD [id number] [address] [place] [address] 02/24/2017 08:37:07 02/24/2017 10:46:53 Osteopenia 968141431 M85.852 M85.88 02/24/17 COBG DEXA - OSTEOPENIA [...] (1000 IU po daily) and Calcium intake (1891-9093 mg po daily in divided doses throughout [...] on the same machine q 2 years. [id number] ADITYA HINES MD [id number] [address] [facility] [place] [address] 09/17/2017 09:40:52 09/17/2017 10:57:54 Gynecologic examination 22642834 Z01.411 Z01.419 Mammograph y done today. Reviewed [...] y. Screening for malignant neoplasm of cervix 830959468 Z12.4 Z11.51 Cervical cancer screening guidelines discussed with patient. Reviewed that if testing has been normal we can also test for HPV with cervical cytology and if both are negative, in some instances can repeat every 3 years.eulogio . Screening for malignant neoplasm of breast 362328068 Z12.39 I reviewed the current breast cancer screening recommenda tions with the patient today. Dietary mian jorge surveillance 590391438 Z71.3 Discussed diet and exercise at length with patient. Reviewed general informatio n about carbohydra jerzy, proteins and fats with patient. Discussed sample diets. Reviewed options to assist with nutrition management including nutrition referrals, weight loss programs and apps like [employer]. Reviewed internet sites which educate regarding nutrition. Discussed importance of exercises which include muscle building and those that help with aerobic exercises. Discussed current recommenda tions regarding exercise including the suggestion that individual s get 150 minutes of exercise weekly. Body mass index 25-29 - overweight 887771136 Z68.25 [id number] ADITYA HINES MD [id number] [address] [place] [address] 09/23/2018 09:13:34 09/23/2018 10:56:12 Gynecologic examination 72220421 Z01.419 Z01.411 (1) Staying healthy sheet provided. Discussed importance of exercise, reducing stress, and avoiding smoking. Discussed BMI, healthy eating choices, and the option for referral to see a dietitian or a free consultati on with [employer] for a more robust diet plan to help with weight loss as indicated. (2) Reviewed cervical cancer screening guidelines for pap every 3 years when both normal and addition of HPV co-testing after the age of 30. Deferred today due to negative pap last year / sample taken for pap smear and HPV co-testing today. Patient requests / declines STI testing today. (3) Contracept deanne needs assessed today. Reviewed the importance of [...] [facility] can review them in more detail. - Follow-up in 1 year for annual well woman exam or sooner with any new questions or concerns. Screening for malignant neoplasm of cervix 619757057 Z12.4 Cervical cancer screening guidelines discussed with patient. Reviewed that if testing has been normal we can also test for HPV with cervical cytology and if both are negative, in some instances can repeat every 3 years.eulogio . Finding of body mass index 850813408 Z68.25 25.7 HPV - Ora n papillomavirus test positive 961632195 R87.852 [id number] ADITYA HINES MD [id number] [address] [place] [address] 03/29/2019 08:40:43 03/29/2019 09:42:14 Osteopenia 248883706 M85.852 M85.88 Patient has osteopenia . Reviewed T scores in general and patient's T scores from her most recent DEXA scan and all prior scans. Reviewed risk of fracture using WHO FRAX tool. Reviewed importance of Vitamin D intake (1000 IU po daily) and Calcium intake (7946-1269 mg po daily in divided doses throughout [...] has been on it for 4 years. [id number] BAIRON WESTON MD [id number] [address] [place] [address] 10/10/2019 09:05:47 10/10/2019 10:59:30 Gynecologic examination 47634106 Z01.411 Mammograph y planned today. Reviewed importance [...] needed. Screening for malignant neoplasm of breast 273985443 Z12.39 I reviewed the current breast cancer screening recommenda tions with the patient today. Dietary mian jorge surveillance 906507672 Z71.3 Discussed diet and exercise at length [...] week. Body mass index 25-29 - overweight 626732149 Z68.26 26 Screening for osteoporosis 841880864 Z13.820 Human yuliana llomavirus deoxyribonucleic acid detected, high risk on cervical specimen 385393741 R87.810 I reviewed the current cervical cancer screening recommenda tions with the patient today. Administra tion of influenza vaccine 40392730 Z23 Patient is advised regarding influenza risks. Discussed vaccine risks and benefits. Reviewed side effects. Pt given the Vaccine Informatio n Statement. Questions answered. 10/10/2019 DECLINES [id number] BAIRON WESTON MD [id number] [address] [place] [address] 10/11/2020 10:36:03 10/11/2020 12:10:22 Gynecologic examination 57582739 Z01.411 Mammograph y planned today. Reviewed importance [...] needed. Screening for malignant neoplasm of cervix 897469827 Z12.4 Z11.51 I reviewed the current cervical cancer screening recommenda tions with the patient today. Screening for malignant neoplasm of breast 288254067 Z12.39 I reviewed the current breast cancer screening recommenda tions with the patient today. Dietary ma nagement surveillance 834596767 Z71.3 Discussed diet and exercise at length [...] week. Body mass index 25-29 - overweight 720031704 Z68.29 26 Screening for osteoporosis 346336909 Z13.820 Osteopenia 788452523 M85 .852 M85.88 02/24/17 COBG DEXA - [...] (1000 IU po daily) and Calcium intake (9845-0747 mg po daily in divided doses throughout [...] the same machine q 2 years. Stress 01635276 Z73.3 Finding re lating to psychosocial functioning 565546723 Z65.9 This patient is feeling the effects [...] meditation , music, prayer, guided imagery etc... [id number] BAIRON WESTON MD [id number] [address] [place] [address] 05/13/2021 12:21:23 05/13/2021 13:26:39 Osteopenia 471170009 M85.852 M85.88 03/05/21 COBG DEXA - OSTEOPENIA [...] (1000 IU po daily) and Calcium intake (4600-2140 mg po daily in divided doses throughout [...] None Recorded Advance Directives Directive Y: Payers Insurance Date Sequence Insurance Name Policy Number Policy Phipps Covered Member ID Phipps Member ID Guarantor Name 05/12/2021 2 () Nilda Spviey [id number] Nilda Spivey 05/13/2021 1 [place] [id number] Nilda Spivey [id number] Nilda Sanches eBntondebraghav Notes Date Note Type Note Provider Name and Address Organization Details Recorded Time 09/23/2018 text/html Annual Postmenop ausal ([facility])Reported bypatient.Patient Relationship To Practice:established patient Current [...] stays around 125-135/75-85. KRISTAL MORRISON NP [address], [place], [address], [facility] 09/23/2018 10:54:21 03/29/2019 text/html Osteoporosis/Ost eopen ia ([facility])Reported bypatient.* Severity:increased BMDNotes:Patient presents today to review BD results. KRISTAL PRINCE COWART [address], [place], [address], [facility] 03/29/2019 09:37:31 10/10/2019 text/html Annual Postmenop ausal ([facility])Reported bypatient.Patient Relationship To Practice:established patient Current Medical [...] Density Study:up-to-date Patient has:Primary Care Physician: yes; Fixed Wing Pilot: yes; Beater Out Leveling Machine: no BAIRON WESTON MD [address],[place], [address], [facility] 10/10/2019 10:56:11 10/11/2020 text/html Annual Postmenop ausal ([facility])Reported bypatient.Patient Relationship To Practice:established patient Current Medical [...] Density Study:up-to-date Patient has:Primary Care Physician: yes; Fixed Wing Pilot: yes; Beater Out Leveling Machine: noNotes:Pt. presents today for her annual exam and mammo. Pt. has no concerns today. Have you been exposed to anyone positive for COVID, have any pending COVID test or any COVID symptoms? No BAIRON WESTON MD [address], [place], [address], [facility] 10/11/2020 17:40:06 05/13/2021 text/html Osteoporosis/Ost eopen ia ([facility])Reported bypatient.* Location:total hip left; femoral neck left; lumbar spine * Quality:osteopenia lumbar spine (and hip) Year of Diagnosis:2014 * Severity:lowest t-score -2.1 * Context:postmenopausa l Diagnostic TestingOther:DEXA Risk Factors:age:65; postmenopausal Currentweight bearing exercises no change; calcium supplements; alendronate (Fosamax) Previous Treatmentsweight bearing exercises no change; calcium supplements; alendronate (Fosamax) BAIRON WESTON MD [address] [place] [address],[address], [place], [address], [facility] 05/13/2021 13:26:23 OBGyn Episode Ob Episode Information Episode Created Date Number of Fetuses Patient Bloodtype Patient rh Status Prepregnancy Weight lbs Domestic Partner Domestic Partner Phone Father Name Upper Marker Status 08/21/20 14 1 CLOSED Fetus Data First Name Last Name Admitted to NICU Weight (g) Sex Living Outcome Pediatric Complications Fetus ID Race Codes Race Delivery Type 3090.09 55 F [id number] Amanuel Calculation Initial Amanuel Date Initial Exam [...] Domestic Partner Domestic Partner Phone Father Name Upper Marker Status 08/21/20 14 1 CLOSED Fetus Data First Name Last Name Admitted to NICU Weight (g) Sex Living Outcome Pediatric Complications Fetus ID Race Codes Race Delivery Type 3486.98 85 M [id number] Amanuel Calculation Initial Amanuel Date Initial Exam [...]
--- OUTSIDE RECORDS SUMMARY | 2025-02-14 14:31 | XMS_ITS | Clinical Summary ---
Author Organization [facility] Facility Address [address] [address] Care Team Providers Care Scenic Arts Supervisor Name Role Phone Hillary Aguayo MD Primary Care Provider [phone] Allergies Active Allergy Reactions Criticality Noted Date [...] Comments Breast Cancer Screening 1955 Pneumococcal Vaccine: 50+ Ye ars (1 of 2 - PCV) 1975 Colorectal Cancer Screening: Annual FOBT 2005 Colorectal Cancer Screening: Colonoscopy 2005 Colorectal Cancer Screening: Sigmoidoscopy 2005 Influenza Vaccine (Season Ended) 2025 Hepatitis B Vaccine Aged Out No longe r eligible based on patient's age to complete this topic Insurance [employer] Care Teams Scenic Arts Supervisor Relationship Specialty Start Date End Date Hillary Aguayo MD [address] [place] [id number] PCP - General Internal Medicine 12/20/21
== END 2025-02-14 13:53 | disposition home or self-care (01) ==
LOC: HO.HMCFM 13:26
PROVIDERS: PCP Internal Medicine; Visit Provider Internal Medicine
DX: R06.2 Wheezing (principal); I10 Essential (primary) hypertension

== ENCOUNTER → 2025-02-14 13:25 | Outpatient (BNVA) | payer OTHER, SELFPAY | PROVIDERS: PCP Internal Medicine; Visit Provider Internal Medicine ==

== ENCOUNTER 2025-03-28 15:33 | Outpatient (REF) | payer OTHER, SELFPAY ==
--- NOTE | 2025-03-28 15:35 | PFT_ITS ---
Flows: FEV1: 90 % of predicted at 1.89 L FVC: 95 % of predicted at 2.55 L FEV1/FVC: 74 % Bronchodilator response: Present Volumes: Total lung capacity: 93 % of predicted at 4.34 L Residual volume: 105 % of predicted at 1.87 L Slow vital capacity: 86 % of predicted at 2.46 L Expiratory reserve volume: 120 % of predicted at 0.81 L Diffusion capacity: Normal Impression: Reversible moderate obstructive ventilatory defect with positive bronchodilator response. MTDD
[2025-03-28 16:31] VITALS: PULSE 76; O2SAT 97
--- OUTSIDE RECORDS SUMMARY | 2025-03-28 18:45 | XMS_ITS | Patient Health Record ---
[facility] Organization [facility] Address [address] [place] [address] [address] [place] [address] Care Team Providers Care Hyperion Administrator Name Role Phone Luna NGUYEN MD, YESSI Primary Care Provider PIERRE Tong Unavailable [phone] Allergies Allergen (clinical drug ingredient) Drug/Non Drug [...] W/U Status Risk Notes Problem Essential hypertension (39539709) Essential (primary) hypertension (I10) Active confirmed Problem Chronic kidney disease, stage 2 (mild) (N18.2) Active confirmed Problem COVID-19 (248006329) COVID-19 (U07.1) Active confirmed Plan Of Treatment Pending Test Test Name Order Date MM Digital Screening Mammogram 3D 2021 MM Digital Screening Mammogram 3D 2023 Insurance Providers Payer Name Payer Address Payer Phone Subscriber Number Group Number Insured Name Patient Relationship to Insured Coverage Start Date Coverage End Date [employer] MEDICARE [address] [address] [place] [address] [phone] [id number] PPO CAMILLE ROBERT Self - patient is the insured [employer] [facility] [address] [address] [place] [address] [id number] CAMILLE ROBERT Self - patient is the insured MEDICARE [address] [place] [id number] DIANE OBRIENKIE Self - patient is the insured Medical (General) History Medical History History ICD Code Essential (primary) hypertension I10 Chronic kidney disease, stage 2 (mild) N 18.2 COVID-19 U07.1 Surgical History Surgery Date(Month/Year) Colonoscopy 12/2020 Hospitalization History Reason Date(Month/Year) 2 Vaginal Deliveries
== END 2025-03-28 15:34 | disposition home or self-care (01) ==
LOC: HO.RESP 15:33
PROVIDERS: PCP Internal Medicine; Visit Provider Internal Medicine
DX: R06.2 Wheezing (principal)
CPT/HCPCS: 94010; 94640; 94727; 94729

== ENCOUNTER → 2025-03-28 15:35 | Outpatient (BNV) | payer OTHER, SELFPAY | PROVIDERS: PCP Internal Medicine; Visit Provider Internal Medicine Pulmonary Disease | DX: J20.9 Acute bronchitis, unspecified (principal) | CPT/HCPCS: 94060; 94727; 94729 ==

== ENCOUNTER 2025-05-03 14:14 | Outpatient (AMB) | payer OTHER, SELFPAY ==
[2025-05-03 14:30] VITALS: BP 126/64; PULSE 72; O2SAT 97; BMI 25.2
--- NOTE | 2025-05-03 14:30 | MHC.OFFVIS ---
Vital Signs 05/03/25 14:30 Height 5 ft 2.5 in Weight 140 lb 2 oz BMI 25.2 BP 126/64 Blood Pressure Location Rt brachial Position Sitting Pulse 72 Pulse Source Pulse Oximeter Pulse Oximetry (%) 97 Oxygen Delivery Method Room Air Intake Visit Reasons: Wheezing Allergies losartan (From Cozaar) Allergy (Unknown, Verified 05/03/25 14:32) Unknown HPI HPI Wheezing: Details: Nilda is a a pleasant 69-year-old female, never smoker with underlying hypertension and chronic kidney disease. She was referred by PCP for pulmonary evaluation. The patient reports a history of recurrent bronchitis, having experienced four episodes in the past two years, with the most recent episode being particularly severe. She describes symptoms of chest heaviness and a sensation of drowning while lying down, which necessitated sleeping in a recliner. These episodes have been managed with antibiotics and steroids, with resolution of symptoms. Recent PFT her overall suggestive of asthma, confirmed by a significant response to albuterol during pulmonary function testing, showing a 30% improvement in large airways and 93% in smaller airways. She has not used inhalers regularly until two years ago, uses albuterol PRN, coinciding with her move to [place], where she suspects environmental factors may have triggered her symptoms. She currently denies any respiratory symptoms. The patient also reports seasonal allergies, for which she takes April and Flonase, particularly during high pollen seasons. She notes that czmp-kti-sorjqls medications like Mucinex have been ineffective in managing her symptoms. Her medical history includes exposure to secondhand smoke during childhood and adulthood, which may have contributed to her respiratory issues. She denies any history of smoking herself. [facility] Medical History Benign fibromatous neoplasm of skin Osteopenia Kidney failure Hypertension Chronic kidney disease Surgical History History of surgical removal of skin lesion Family History Mother Alcoholism Father Dementia Hypertension Cardiovascular disease Sister Hypertension Sister Hypertension Social History Household Members: Children and Other Household Members Other:: 2 Grandchildren Housing: House Alcohol intake: current Patient Tobacco Use Status: Never used Tobacco e-Cigarette/Vaping Use: Never Used service: No Current occupational status: retired Cognitive needs: No Hearing needs: No Vision needs: No Review of Systems Const Denies chills, Denies excessive sweating, Denies fever(s), Denies headache(s) and Denies night sweats Eyes Denies dry eyes, Denies irritation and Denies itchy eyes ENT Reports Normal hearing present, Denies headache(s), Denies nasal congestion, Denies nasal discharge, Denies post nasal drip and Denies sore throat Card Denies chest pain, Denies chest pain at rest, Denies chest pain with activity, Denies claudication, Denies leg edema, Denies dyspnea, Denies dyspnea on exertion, Denies orthopnea and Denies paroxysmal nocturnal dyspnea Resp Denies chest congestion, Denies cough, Denies excessive phlegm production, Denies pain on inspiration, Denies pain with cough, Denies dyspnea, Denies dyspnea on exertion, Denies stridor and Denies wheezing Musc Denies myalgias Neuro Reports Normal hearing present and Denies headache(s) Endo Denies excessive sweating Amador/Lymph Denies lymphadenopathy Aller/Immun Denies itchy eyes, Denies seasonal rhinorrhea and Denies wheezing Physical Exam Vital Signs: Last Vital Signs Pulse 72 05/03/25 14:30 BP 126/64 05/03/25 14:30 Pulse Ox 97 05/03/25 14:30 Oxygen Delivery Method Room Air 05/03/25 14:30 BMI result Body Mass Index 25.2 Const General: cooperative, healthy appearing, comfortable, no acute distress, well developed and alert Orientation/consciousness: patient oriented x3 Limitations: no limitations HEENT Head: Yes normal to inspection, Yes normocephalic and Yes atraumatic Ears: hearing grossly normal bilaterally and external ears normal Eyes General: appearance normal, both eyes and all related structures Eyelids: Yes eyelids normal Sclerae: sclerae normal EOM: EOMs intact bilaterally Neck Neck: Yes normal visual inspection and Yes no lymphadenopathy Lymphatic: no lymphadenopathy noted Chest Chest palpation & inspection: normal inspection of the chest Resp Effort & Inspection: normal respiratory effort, able to speak in complete sentences, no audible wheezes, no cough, no stridor, not tachypneic, no tripod positioning and no use of accessory muscles Auscultation: clear to auscultation bilaterally Cardio Jugular venous distension: no JVD Rate: regular rate Rhythm: regular rhythm Skin Other: warm, dry General skin exam: no rashes or lesions noted Neuro General: patient oriented x3 Cranial nerves: Yes Normal hearing present Cognition (Neuro): normal cognition Gait exam (Neuro): Normal gait present Extrem General: Yes normal to inspection, Yes capillary refill normal, Yes no clubbing, cyanosis or edema and Yes no pedal edema Psych Appearance: grossly normal and well kempt Speech and movement: Normal speech and movement present and Clear speech present Affect: normal affect Attitude: cooperative Thought process: Normal thought process present Thought content: Normal thought content present Insight: Good insight present (Psych) Judgement: Good judgement present (Psych) Results Reviewed Results Reviewed: RESULT: Chest 2 Views Frontal and Lat Examination: Chest performed on 03/11/2025. History: Cough. Findings: Frontal and lateral views of the chest are submitted without comparison. The cardiac and mediastinal silhouettes are within normal limits. The lungs are clear. Scoliosis within the spine is present. Impression: There is no acute cardiopulmonary disease. WSN: [id number] Ordering Physician: Lois Atkinson Reason For Exam Cough Signature Line Dictated By: Maryse Hameed MD Dictated Date/Time: 03/13/25 1:07 pm Reviewed By: Maryse Hameed MD Signed By: Maryse Hameed MD Signed Date/Time: 03/13/25 1:07 pm Transcribed By: PRABHJOT Transcribed Date/Time: 03/13/25 1:07 pm Assessment & Plan Assessment & Plan (1) Asthma: Code(s): J45.909 - Unspecified asthma, uncomplicated Category: Medical (2) Environmental allergies: Code(s): Z91.09 - Other allergy status, other than to drugs and biological substances Category: Medical Plan Reviewed PFT which revealed reversible moderate obstructive ventilatory defect with positive bronchodilator response. Lung volumes and DLCO WNL. The patient will be started on Breo. Discussed importance of good oral hygiene to prevent thrush. Allergy testing will be conducted to identify specific allergens contributing to the patient's symptoms, with results guiding further management. The patient is advised to continue using April and Flonase during high pollen seasons and to consider environmental modifications such as using air purifiers and dehumidifiers. All questions were answered and patient is in agreement of plan. Will follow up in 6-8 weeks or sooner if needed. Orders: Orders Complete Blood Count Auto Diff 05/03/25 Z91.09 - Other allergy status, other than to drugs and biological substances Immunoglobulin E 05/03/25 Z91.09 - Other allergy status, other than to drugs and biological substances Resp Allergy Profile Region I 05/03/25 Z91.09 - Other allergy status, other than to drugs and biological substances Medications: New fluticasone furoate-vilanterol 100-25 mcg/dose (Breo Ellipta) 1 inh inhalation DAILY 60 ea 3RF Refilled albuterol sulfate 90 mcg/actuation 1 inh inhalation .every 4 hours PRN 8.5 grams 2RF shortness of breath or wheezing 30 days Coding Level of Care Code New Pt Level 4 (71220) Diagnoses Asthma J45.909 Environmental allergies Z91.09
--- OUTSIDE RECORDS SUMMARY | 2025-05-03 14:56 | XMS_ITS | Clinical Summary ---
Author Organization [facility] Facility Address [address] [address] Care Team Providers Care Sanding Machine Tender Name Role Phone Hillary Aguayo MD Primary Care Provider [phone] Allergies Active Allergy Reactions Criticality Noted Date [...] Cancer Screening: Sigmoidoscopy 2005 Influenza Vaccine (#1) 2025 Hepatitis B Vaccine Aged Out No longe r eligible based on patient's age to complete this topic Insurance [employer] Care Teams Sanding Machine Tender Relationship Specialty Start Date End Date Hillary Aguayo MD [address] [place] [id number] PCP - General Internal Medicine 12/20/21
== END 2025-05-03 15:35 | disposition home or self-care (01) ==
LOC: HO.HPSW 14:15
PROVIDERS: PCP Internal Medicine; Referring Provider Internal Medicine; Visit Provider Nurse Practitioner Family
DX: J45.909 Unspecified asthma, uncomplicated (principal); Z91.09 Other allergy status, other than to drugs and biological substances
CPT/HCPCS: 99204

== ENCOUNTER 2025-05-03 15:06 | Outpatient (REF) | payer OTHER, SELFPAY ==
[2025-05-03 18:01] LABS: MANUAL DIFF FLAG NO
[2025-05-03 18:14] LABS: Hematocrit 39.5 % (37.0-47.0); Hemoglobin 13.0 g/dl (12.0-16.0); Imm Gran Abs Auto 0.05 X10*3/uL (0.00-0.03); Imm Gran Pct Auto 0.4 % (0.0-0.4); Lymphocytes Absolute Auto 3.4 X10*3/uL (1.2-4.9); Mean Corpuscular HGB Conc 32.9 g/dl (31.0-35.0); Mean Corpuscular Hemoglobin 28.1 pg (27.0-33.0); Mean Corpuscular Volume 85.3 fL (80.0-98.0); NRBC Abs Auto 0.000 X10*3/uL (0.0-0.012); NRBC Pct Auto 0.0 /100WBC (0.0-0.2); Platelet Count 376 X10*3/uL (160-400); Red Blood Count 4.63 X10*6/uL (4.20-5.50); White Blood Count 12.1 X10*3/uL (4.8-10.8)
[2025-05-08 20:48] LABS: Class Alternaria alternata 0; Class Aspergillus fumigatus 0; Class Bermuda Grass 0; Class Birch 0; Class Cat Dander 0/1; Class Cladosporium herbarum 0; Class Cockroach 0; Class Common Ragweed 0; Class Cottonwood 0/1; Class Derm. pterony 0; Class Dermatophagoides farinae 0; Class Dog Dander 0/1; Class Elm 0; Class Maple Box Elder 0; Class Mountain Cedar 0; Class Mouse Urine Protein 0; Class Mugwort 0; Class Oak 0; Class Penicillium crysogenum 0; Class Rough Pigweed 0; Class Sheep Sorrel 0; Class Sycamore 0; Class Timothy Grass 0; Class Walnut Tree 0; Class White Ash 0; Class White Mulberry 0; D002 - IgE D farinae <0.10 kU/L; E001 - IgE Cat Dander 0.33 kU/L; E005 - IgE Dog Dander 0.17 kU/L; G006 - IgE Timothy Grass <0.10 kU/L; I006-IgE Cockroach, German <0.10 kU/L; M002 - IgE Cladosporium herbar <0.10 kU/L; M003 - IgE Aspergillus fumigat <0.10 kU/L; M006 - IgE Alternaria alternat <0.10 kU/L; T001 IgE Maple/Box Elder <0.10 kU/L; T006 - IgE Cedar, Mountain <0.10 kU/L; T007 - IgE Oak, White <0.10 kU/L; T008 IgE Elm, American <0.10 kU/L; T010 - IgE Walnut <0.10 kU/L; T011 - IgE Maple Leaf Sycamore <0.10 kU/L; T014 - IgE Cottonwood 0.14 kU/L; T015 - IgE Ash, White <0.10 kU/L; T070 - IgE White Mulberry <0.10 kU/L; W001 - IgE Ragweed, Short <0.10 kU/L; W006 - IgE Mugwort <0.10 kU/L; W014 IgE Pigweed, Common <0.10 kU/L; W018 IgE Sheep Sorrel <0.10 kU/L
== END 2025-05-03 15:07 | disposition home or self-care (01) ==
LOC: HO.WFDLDS 15:06
PROVIDERS: Visit Provider Nurse Practitioner Family
DX: J45.909 Unspecified asthma, uncomplicated (principal); Z91.09 Other allergy status, other than to drugs and biological substances
CPT/HCPCS: 36415; 82785; 85025; 86003

== ENCOUNTER 2025-06-19 13:28 | Outpatient (AMB) | payer OTHER, SELFPAY ==
--- NOTE | 2025-06-19 13:37 | MHC.PC.OV ---
Vital Signs 06/19/25 13:42 Height 5 ft 2.5 in Weight 139 lb 8 oz BMI 25.1 BP 116/62 Blood Pressure Location Rt brachial Position Sitting Respiration 12 Pulse 55 Pulse Source Pulse Oximeter Pulse Oximetry (%) 99 Oxygen Delivery Method Room Air Intake Visit Reasons: htn Intake Note: HTN follow up. Having trouble sleeping. Tried Nyquil gummies with not much relief. Manufacturing Engineering Intern Required: No Allergies losartan (From [employer]) Allergy (Unknown, Verified 06/19/25 13:40) Unknown Tobacco use date assessed: 06/19/25 Fall risk assessment: No Falls in past year Last assessed Fall Risk: 06/19/25 Dental Screening Dental Screen Date: 02/14/25 HPI HPI Comments History of Present Illness Details The patient is a 69 year old female with a past medical history of hypertension, CKD stage 2, osteopenia, hld, borderline abnormal TFTs, presenting for follow up Asthma: Follows with pulmonary. She is doing well on symicort, radha, albuterol prn Hypertension: On hctz 12.5 mg daily. BP controlled. Denies chest pain, shortness of breath Difficulty sleeping. Trouble falling asleep and she is waking up during the night DXA 06/2023. Previously took fosamax. 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 Colon cancer [id number] in 10 years Vision-sees [facility] [place] ROS see HPI PHYSICAL EXAM: GENERAL: Alert and oriented x 3. NAD EYES: EOMI. Anicteric. HENT: Moist mucous membranes. No scleral icterus. No cervical lymphadenopathy. LUNGS: scant wheeze CARDIOVASCULAR: Regular rate and rhythm. No murmur. No JVD. ABDOMEN: Soft, non-tender +bs EXTREMITIES: No edema. Non-tender. SKIN: No rashes or lesions. Warm. NEUROLOGIC: No focal neurological deficits. CN II-XII grossly intact PSYCHIATRIC: Cooperative. Appropriate mood and affect [facility] Medical History Benign fibromatous neoplasm of skin Osteopenia Kidney failure Hypertension Chronic kidney disease Surgical History History of surgical removal of skin lesion Family History Mother Alcoholism Father Dementia Hypertension Cardiovascular disease Sister Hypertension Sister Hypertension Social History Household Members: Children and Other Household Members Other:: 2 Grandchildren Housing: House Alcohol intake: current Patient Tobacco Use Status: Never used Tobacco e-Cigarette/Vaping Use: Never Used service: No Current occupational status: retired Cognitive needs: No Hearing needs: No Vision needs: No Questionnaire Thrive Questionnaire Date Thrive assessed: 12/06/24 I am a: Patient What is your living situation today?: I have a steady place to live Within the past 12 months, did the food you bought not last and you didn't have the money to get more?: Never true Within the past 12 months, did you worry whether your food would run out before you got money to buy more?: Never true Do you have trouble paying for medicines?: No Do you have trouble getting transportation to medical appointments?: No Do you have trouble paying your heating and electricity bill?: No Do you have trouble taking care of your child, family member or friend?: No Do you have trouble with day-to-day activities such as bathing, preparing meals, shopping, managing finances, etc.?: No Are you currently unemployed and looking for a job?: No Are you interested in more education?: No Please select the resources that you would like help with: None Currently or been in a relationship where the following occur: No concerns reported THRIVE Score: 0 DIONE-7 AMB Questionnaire DIONE-7 Date DIONE - 7 assessed: 12/13/24 Source: Developed by Drs. Hector Presley, Ann Rivers, Herve Jackson and colleagues, with an educational dallas from [employer]. Physical exam (Primary Care) Vital Signs: Last Vital Signs Pulse 55 06/19/25 13:42 Resp 12 06/19/25 13:42 BP 116/62 06/19/25 13:42 Pulse Ox 99 06/19/25 13:42 Oxygen Delivery Method Room Air 06/19/25 13:42 BMI result Body Mass Index 25.1 Tobacco/Smoking Status: Tobacco use Status Tobacco use date assessed 06/19/25 06/19/25 13:45 Patient Tobacco Use Status Never used Tobacco 06/19/25 13:37 e-Cigarette/Vaping Use Never Used 06/19/25 13:37 Thrive Assessment: Date of Thrive Assessment Date Thrive assessed 12/06/24 06/19/25 13:37 Currently or been in a relationship where the following occur: No concerns reported Coding Level of Care Code Est Pt Level 4 (83881) Complex EM visit Add On G2211 Diagnoses Primary hypertension I10 Hypertension type: primary hypertension Moderate persistent asthma without complication J45.40 Asthma severity: moderate Asthma persistence: persistent Asthma complication type: uncomplicated Assessment & Plan Assessment & Plan (1) Hypertension: Code(s): I10 - Essential (primary) hypertension Category: Medical Qualifiers: Hypertension type: primary hypertension Qualified Code(s): I10 - Essential (primary) hypertension (2) Asthma: Code(s): J45.909 - Unspecified asthma, uncomplicated Category: Medical Qualifiers: Asthma severity: moderate Asthma persistence: persistent Asthma complication type: uncomplicated Qualified Code(s): J45.40 - Moderate persistent asthma, uncomplicated Plan 69 year old for follow up Blood pressure is adequately controlled on medications. Low salt diet Insomnia-start trazodone asthma is well controlled on current medications Orders: Orders TSH reflex Free T4 06/19/25 I10 - Essential (primary) hypertension, J45.909 - Unspecified asthma, uncomplicated, N18.2 - Chronic kidney disease, stage 2 (mild), R35.89 - Other polyuria, R53.83 - Other fatigue, R94.6 - Abnormal results of thyroid function studies Hemoglobin A1c 06/19/25 I10 - Essential (primary) hypertension, J45.909 - Unspecified asthma, uncomplicated, N18.2 - Chronic kidney disease, stage 2 (mild), R35.89 - Other polyuria, R53.83 - Other fatigue, R94.6 - Abnormal results of thyroid function studies Comprehensive Met. Panel 06/19/25 I10 - Essential (primary) hypertension, J45.909 - Unspecified asthma, uncomplicated, N18.2 - Chronic kidney disease, stage 2 (mild), R35.89 - Other polyuria, R53.83 - Other fatigue, R94.6 - Abnormal results of thyroid function studies Lipid Panel 06/19/25 I10 - Essential (primary) hypertension, J45.909 - Unspecified asthma, uncomplicated, N18.2 - Chronic kidney disease, stage 2 (mild), R35.89 - Other polyuria, R53.83 - Other fatigue, R94.6 - Abnormal results of thyroid function studies Medications: New trazodone 50 mg PO BEDTIME PRN 90 tabs 3RF sleep
[2025-06-19 13:42] VITALS: BP 116/62; PULSE 55; RESP 12; O2SAT 99; BMI 25.1
--- OUTSIDE RECORDS SUMMARY | 2025-06-19 18:44 | XMS_ITS | Patient Health Record ---
Author Organization [facility] Address [address] [place] [address] [address] [place] [address] Care Team Providers Care Folding Machine Tender Name Role Phone Luna NGUYEN MD, YESSI Primary Care Provider PIERRE Tong Unavailable [phone] Allergies Allergen (clinical drug ingredient) Drug/Non Drug [...] capsule in the morning Orally Once a day; Duration: 30 day(s) Active Social History Tobacco Use: [...] W/U Status Risk Notes Problem Essential hypertension (73847778) Essential (primary) hypertension (I10) Active confirmed Problem Chronic kidney disease stage 2 (720331789) Chronic kidney disease, stage 2 (mild) (N18.2) Active confirmed Problem COVID-19 (940657293) COVID-19 (U07.1) Active confirmed Plan Of Treatment Pending Test Test Name Order Date MM Digital Screening Mammogram 3D 2021 MM Digital Screening Mammogram 3D 2023 Insurance Providers Payer Name Payer Address Payer Phone Subscriber Number Group Number Insured Name Patient Relationship to Insured Coverage Start Date Coverage End Date HU[employer]NA MEDICARE [address] [address] [place] [address] [id number] PPO ROBERT OBRIEN Self - patient is the insured Program [address] [address] [place] [address] [phone] [id number] ROBERT OBRIEN Self - patient is the insured MEDICARE [address] [facility] [place] [id number] ROBERT OBRIEN Self - patient is the insured Medical (General) History Medical History History ICD Code Essential (primary) hypertension I10 Chronic kidney disease, stage 2 (mild) N 18.2 COVID-19 U07.1 Surgical History Surgery Date(Month/Year) Colonoscopy 12/2020 Hospitalization History Reason Date(Month/Year) 2 Vaginal Deliveries
--- OUTSIDE RECORDS SUMMARY | 2025-06-19 18:44 | XMS_ITS | Clinical Summary ---
Author Organization [facility] Facility Address [address] [address] Care Team Providers Care Linotype Mechanic Name Role Phone Hillary Aguayo MD Primary Care Provider [phone] Allergies Active Allergy Reactions Criticality Noted Date [...] age to complete this topic Insurance [employer]form [employer]form Care Teams Linotype Mechanic Relationship Specialty Start Date End Date Hillary Aguayo MD [address] [place] [id number] PCP - General Internal Medicine 12/20/21
== END 2025-06-19 14:08 | disposition home or self-care (01) ==
LOC: HO.HMCFM 13:29
PROVIDERS: PCP Internal Medicine; Visit Provider Internal Medicine
DX: I10 Essential (primary) hypertension (principal); J45.40 Moderate persistent asthma, uncomplicated

== ENCOUNTER 2025-06-23 07:45 | Outpatient (REF) | payer OTHER, SELFPAY ==
--- OUTSIDE RECORDS SUMMARY | 2025-06-23 07:47 | XMS_ITS | Clinical Summary ---
Author Organization [facility] Facility Address [address] [address] Care Team Providers Care Beverage Specialist Name Role Phone Hillary Aguayo MD Primary Care Provider Allergies Active Allergy Reactions Criticality Noted Date [...] age to complete this topic Insurance [employer] Care Teams Beverage Specialist Relationship Specialty Start Date End Date Hillary Aguayo MD [address] [place] [id number] PCP - General Internal Medicine 12/20/21
[2025-06-23 11:37] LABS: Hemoglobin A1C 134.3341 umol/L; Total Hemoglobin (HGBA1C) 3301.9189 umol/L
[2025-06-23 11:48] LABS: Alanine Aminotransferase 15 U/L (0-31); Albumin Level 4.5 g/dL (3.5-5.0); Alkaline Phosphatase 71 U/L (39-117); Anion Gap 10 (12-20); Aspartate Amino Transferase 24 U/L (5-31); Blood Urea Nitrogen 26 mg/dL (9-16); Calcium 9.5 mg/dL (8.4-10.2); Carbon Dioxide 29 mmol/L (22-29); Chloride 106 mmol/L (96-108); Cholesterol 216 mg/dL (<200); Estimated Glomerular Filt Rate 44; HDL Cholesterol 51 mg/dL (>40); Potassium 4.0 mmol/L (3.3-5.1); Sodium 141 mmol/L (135-145); Total Protein 7.3 g/dL (6.5-8.0); Triglycerides 88 mg/dL (<150)
== END 2025-06-23 07:46 | disposition home or self-care (01) ==
LOC: HO.WFDLDS 07:45
PROVIDERS: Visit Provider Internal Medicine
DX: R94.6 Abnormal results of thyroid function studies (principal); I12.9 Hypertensive chronic kidney disease with stage 1 through stage 4 chronic kidney disease, or unspecified chronic kidney disease; N18.2 Chronic kidney disease, stage 2 (mild); J45.909 Unspecified asthma, uncomplicated; R53.83 Other fatigue; R35.89 Other polyuria; Z13.1 Encounter for screening for diabetes mellitus
CPT/HCPCS: 36415; 80053; 80061; 83036; 84443

== ENCOUNTER 2025-06-27 10:32 | Outpatient (AMB) | payer OTHER, SELFPAY ==
--- NOTE | 2025-06-27 10:46 | MHC.OFFVIS ---
Vital Signs 06/27/25 10:47 Height 5 ft 2.5 in Weight 137 lb 6 oz BMI 24.7 BP 130/66 Blood Pressure Location Lt brachial Position Sitting Pulse 54 Pulse Source Pulse Oximeter Pulse Oximetry (%) 98 Oxygen Delivery Method Room Air Intake Visit Reasons: Wheezing Allergies losartan (From Cozaar) Allergy (Unknown, Verified 06/27/25 10:49) Unknown HPI HPI Wheezing: Details: Nilda is a a pleasant 69-year-old female, never smoker with underlying asthma, hypertension and chronic kidney disease. She was initially referred by PCP for recurrent bronchitis, having experienced four episodes in the past two years, with the most recent episode being particularly severe. She also described symptoms of chest heaviness and a sensation of drowning while lying down, which necessitated sleeping in a recliner. These episodes have been managed with antibiotics and steroids, with resolution of symptoms. Recent PFT suggestive of asthma, confirmed by a significant response to albuterol during pulmonary function testing, showing a 30% improvement in large airways and 93% in smaller airways. Since the last visit, she was started on Symbicort (Breo not covered by insurance) and reports resolution of respiratory symptoms. She continues to take April for allergic rhinitis with good effect. She denies any visits to urgent care or hospitalizations related to respiratory distress since the last visit. [facility] Medical History Benign fibromatous neoplasm of skin Osteopenia Kidney failure Hypertension Chronic kidney disease Surgical History History of surgical removal of skin lesion Family History Mother Alcoholism Father Dementia Hypertension Cardiovascular disease Sister Hypertension Sister Hypertension Social History Household Members: Children and Other Household Members Other:: 2 Grandchildren Housing: House Alcohol intake: current Patient Tobacco Use Status: Never used Tobacco e-Cigarette/Vaping Use: Never Used service: No Current occupational status: retired Cognitive needs: No Hearing needs: No Vision needs: No Review of Systems Const Denies chills, Denies excessive sweating, Denies fever(s), Denies headache(s) and Denies night sweats Eyes Denies dry eyes, Denies irritation and Denies itchy eyes ENT Reports Normal hearing present, Denies headache(s), Denies nasal congestion, Denies nasal discharge, Denies post nasal drip and Denies sore throat Card Denies chest pain, Denies chest pain at rest, Denies chest pain with activity, Denies claudication, Denies leg edema, Denies dyspnea, Denies dyspnea on exertion, Denies orthopnea and Denies paroxysmal nocturnal dyspnea Resp Denies chest congestion, Denies cough, Denies excessive phlegm production, Denies pain on inspiration, Denies pain with cough, Denies dyspnea, Denies dyspnea on exertion, Denies stridor and Denies wheezing Musc Denies myalgias Neuro Reports Normal hearing present and Denies headache(s) Endo Denies excessive sweating Amador/Lymph Denies lymphadenopathy Aller/Immun Denies itchy eyes, Denies seasonal rhinorrhea and Denies wheezing Physical Exam Vital Signs: Last Vital Signs Pulse 54 06/27/25 10:47 BP 130/66 06/27/25 10:47 Pulse Ox 98 06/27/25 10:47 Oxygen Delivery Method Room Air 06/27/25 10:47 BMI result Body Mass Index 24.7 Const General: cooperative, healthy appearing, comfortable, no acute distress, well developed and alert Orientation/consciousness: patient oriented x3 Limitations: no limitations HEENT Head: Yes normal to inspection, Yes normocephalic and Yes atraumatic Ears: hearing grossly normal bilaterally and external ears normal Eyes General: appearance normal, both eyes and all related structures Eyelids: Yes eyelids normal Sclerae: sclerae normal EOM: EOMs intact bilaterally Neck Neck: Yes normal visual inspection and Yes no lymphadenopathy Lymphatic: no lymphadenopathy noted Chest Chest palpation & inspection: normal inspection of the chest Resp Effort & Inspection: normal respiratory effort, able to speak in complete sentences, no audible wheezes, no cough, no stridor, not tachypneic, no tripod positioning and no use of accessory muscles Auscultation: clear to auscultation bilaterally Cardio Jugular venous distension: no JVD Rate: regular rate Rhythm: regular rhythm Skin Other: warm, dry General skin exam: no rashes or lesions noted Neuro General: patient oriented x3 Cranial nerves: Yes Normal hearing present Cognition (Neuro): normal cognition Gait exam (Neuro): Normal gait present Extrem General: Yes normal to inspection, Yes capillary refill normal, Yes no clubbing, cyanosis or edema and Yes no pedal edema Psych Appearance: grossly normal and well kempt Speech and movement: Normal speech and movement present and Clear speech present Affect: normal affect Attitude: cooperative Thought process: Normal thought process present Thought content: Normal thought content present Insight: Good insight present (Psych) Judgement: Good judgement present (Psych) Assessment & Plan Assessment & Plan (1) Asthma: Code(s): J45.909 - Unspecified asthma, uncomplicated Category: Medical Qualifiers: Asthma complication type: uncomplicated Asthma persistence: persistent Asthma severity: moderate Qualified Code(s): J45.40 - Moderate persistent asthma, uncomplicated (2) Environmental allergies: Code(s): Z91.09 - Other allergy status, other than to drugs and biological substances Category: Medical Plan At this time, Nilda reports excellent control of respiratory symptoms using Symbicort, rarely requiring albuterol MDI. Encouraged to continue with April PRN. She is aware to call if symptoms change. All questions were answered and patient is in agreement of plan. Will follow up in 3 months or sooner if needed. Coding Level of Care Code Est Pt Level 4 (64912) Diagnoses Moderate persistent asthma without complication J45.40 Asthma complication type: uncomplicated Asthma persistence: persistent Asthma severity: moderate Environmental allergies Z91.09
[2025-06-27 10:47] VITALS: BP 130/66; PULSE 54; O2SAT 98; BMI 24.7
--- OUTSIDE RECORDS SUMMARY | 2025-06-27 12:52 | XMS_ITS | Clinical Summary ---
Author Organization [facility] Facility Address [address] [address] Care Team Providers Care Art Glass Setter Name Role Phone Hillary Aguayo MD Primary Care Provider [phone] Allergies Active Allergy Reactions Criticality Noted Date [...] age to complete this topic Insurance [employer] Care Team Connect Humana Care Team Connect Care Teams Art Glass Setter Relationship Specialty Start Date End Date Hillary Aguayo MD [address] [place] [id number] PCP - General Internal Medicine 12/20/21
--- OUTSIDE RECORDS SUMMARY | 2025-06-27 12:52 | XMS_ITS | Patient Health Record ---
Author Organization [facility] Address [address] [place] [address] [address] [place] [address] Care Team Providers Care Bone Char Puller Name Role Phone Luna NGUYEN MD, YESSI Primary Care Provider PIERRE Tong Unavailable [phone] Allergies Allergen (clinical drug ingredient) Drug/Non Drug [...] W/U Status Risk Notes Problem Essential hypertension (72107254) Essential (primary) hypertension (I10) Active confirmed Problem Chronic kidney disease stage 2 (815263165) Chronic kidney disease, stage 2 (mild) (N18.2) Active confirmed Problem COVID-19 (213589338) COVID-19 (U07.1) Active confirmed Plan Of Treatment Pending Test Test Name Order Date MM Digital Screening Mammogram 3D 2021 MM Digital Screening Mammogram 3D 2023 Insurance Providers Payer Name Payer Address Payer Phone Subscriber Number Group Number Insured Name Patient Relationship to Insured Coverage Start Date Coverage End Date HUMANA MEDICARE [address] [address] [place] [address] [phone] [id number] PPO ROBERT OBRIEN Self - patient is the insured Program [address] [address] [place] [address] [id number] ROBERT OBRIEN Self - patient is the insured MEDICARE [address] [facility] [place] [id number] [phone] [id number] ROBERT OBRIEN Self - patient is the insured Medical (General) History Medical History History ICD Code Essential (primary) hypertension I10 Chronic kidney disease, stage 2 (mild) N 18.2 COVID-19 U07.1 Surgical History Surgery Date(Month/Year) Colonoscopy 12/2020 Hospitalization History Reason Date(Month/Year) 2 Vaginal Deliveries
== END 2025-06-27 11:56 | disposition home or self-care (01) ==
LOC: HO.HPSW 10:33
PROVIDERS: PCP Internal Medicine; Visit Provider Nurse Practitioner Family
DX: J45.40 Moderate persistent asthma, uncomplicated (principal); Z91.09 Other allergy status, other than to drugs and biological substances
CPT/HCPCS: 99214

== ENCOUNTER 2025-07-04 11:07 | Outpatient (REF) | payer OTHER, SELFPAY ==
--- NOTE | ~2025-07-04 | MM_ITS ---
EXAMINATION: DXA BONE DENSITY AXIAL HISTORY: M85.80 - Other specified disorders of bone density and structure, unspecified... TECHNIQUE: GOVECS Dual energy absorptiometry (DEXA) of the lumbar spine, total left hip, and femoral neck was performed. COMPARISON: There are no prior studies for comparison. FINDINGS: The bone mineral density of the lumbar spine is 1.025 g/cm2, corresponding to a T-score of -1.3, and a Z-score of 0.4. This is indicative of osteopenia. The bone mineral density of the left total hip is 0.920 g/cm2, corresponding to a T-score of -0.7, and a Z-score of 0.8. This is indicative of normal bone mineral density. The bone mineral density of the left femoral neck is 0.805 g/cm2, corresponding to a T-score of -1.7, and a Z-score of 0.0. This is indicative of osteopenia. FRACTURE RISK: The FRAX index suggests a risk of major osteoporotic fracture of 10.3%, and of hip fracture 1.6%. MM/XR DEXA axial skeleton IMPRESSION: Based on bone mineral density, and according to World Health Organization (WHO) criteria, the diagnosis is consistent with osteopenia. Statistically, 68% of repeat scans fall within 1 SD (+/- 0.010 g/cm2 for AP spine L1-L4) and 1 SD (+/- 0.012 g/cm2 for femur total) FRAX is a trademark of the [employer] Metabolic Bone Disease, a World Health Organization (WHO) Collaborating Center. Electronically signed by: Hector Hilton MD 07/04/2025 11:50 AM EDT
--- OUTSIDE RECORDS SUMMARY | 2025-07-04 12:35 | XMS_ITS | Patient Health Record ---
Author Organization [facility] Address [address] [place] [address] [address] [place] [address] Care Team Providers Care Maintenance Journeyman Name Role Phone Luna NGUYEN MD, YESSI Primary Care Provider PIERRE Tong Unavailable [phone] Allergies Allergen (clinical drug ingredient) Drug/Non Drug [...] W/U Status Risk Notes Problem Essential hypertension (26660584) Essential (primary) hypertension (I10) Active confirmed Problem Chronic kidney disease stage 2 (998268907) Chronic kidney disease, stage 2 (mild) (N18.2) Active confirmed Problem COVID-19 (821548104) COVID-19 (U07.1) Active confirmed Plan Of Treatment Pending Test Test Name Order Date MM Digital Screening Mammogram 3D 2021 MM Digital Screening Mammogram 3D 2023 Insurance Providers Payer Name Payer Address Payer Phone Subscriber Number Group Number Insured Name Patient Relationship to Insured Coverage Start Date Coverage End Date HU[employer]NA MEDICARE [address] [address] [place] [address] [phone] [id number] PPO ROBERT OBRIEN Self - patient is the insured Program [address] [address] [place] [address] [id number] ROBERT OBRIEN Self - patient is the insured MEDICARE [address] [facility] [place] [id number] [phone] [id number] ROBERT OBRIEN Self - patient is the insured Medical (General) History Medical History History ICD Code Essential (primary) hypertension I10 Chronic kidney disease, stage 2 (mild) N 18.2 COVID-19 U07.1 Surgical History Surgery Date(Month/Year) Colonoscopy 12/2020 Hospitalization History Reason Date(Month/Year) 2 Vaginal Deliveries
--- OUTSIDE RECORDS SUMMARY | 2025-07-04 12:35 | XMS_ITS | Clinical Summary ---
Author Organization [facility] Facility Address [address] [address] Care Team Providers Care Security Assistant Name Role Phone Hillary Aguayo MD Primary Care Provider [phone] Allergies Active Allergy Reactions Criticality Noted Date [...] age to complete this topic Insurance [employer] Care Teams Security Assistant Relationship Specialty Start Date End Date Hillary Aguayo MD [address] [place] [id number] PCP - General Internal Medicine 12/20/21
== END 2025-07-04 11:08 | disposition home or self-care (01) ==
LOC: HO.MAMMO 11:07
PROVIDERS: PCP Internal Medicine; Visit Provider Internal Medicine
DX: Z13.820 Encounter for screening for osteoporosis (principal); M85.89 Other specified disorders of bone density and structure, multiple sites
CPT/HCPCS: 77080

== ENCOUNTER → 2025-07-04 11:30 | Outpatient (BNV) | payer OTHER, SELFPAY | PROVIDERS: PCP Internal Medicine; Visit Provider Radiology Diagnostic Radiology | DX: E28.39 Other primary ovarian failure (principal) | CPT/HCPCS: 77080 ==

== ENCOUNTER 2025-10-04 12:52 | Outpatient (AMB) | payer OTHER, SELFPAY ==
[2025-10-04 12:57] VITALS: BP 132/58; PULSE 56; O2SAT 99; BMI 24.2
--- NOTE | 2025-10-04 12:57 | MHC.OFFVIS ---
Vital Signs 10/04/25 12:57 Height 5 ft 2.5 in Weight 134 lb 8 oz BMI 24.2 BP 132/58 L Blood Pressure Location Rt brachial Position Sitting Pulse 56 Pulse Source Pulse Oximeter Pulse Oximetry (%) 99 Oxygen Delivery Method Room Air Intake Visit Reasons: Wheezing Allergies losartan (From Cozaar) Allergy (Unknown, Verified 10/04/25 13:00) Unknown HPI HPI Wheezing: Details: HPI Comments Details: Nilda is a a pleasant 70-year-old female, never smoker with underlying asthma, hypertension and chronic kidney disease. She reports having a respiratory illness about a week before [place], which she managed at home. During this illness, she experienced chest tightness, requiring her to use her albuterol inhaler every four hours. She also took Robitussin for two days and Mucinex for three days, which helped resolve her symptoms. Her symptoms, including a productive cough, have since resolved, though she notes some mild lingering nasal congestion and an felt puller cough. She denies any current chest tightness, wheezing, or shortness of breath and has returned to her baseline, including exercising. She has not needed her albuterol inhaler since recovering from the illness. The patient was diagnosed with asthma in April or May and expresses that this diagnosis helped her manage the recent illness, which she believes would have otherwise progressed to bronchitis. She has a history of recurrent bronchitis, typically occurring in August/September and December/January. She is compliant with her Symbicort, taking two puffs twice daily and rinsing her mouth afterward. Regarding allergies, prior testing revealed high numbers and sensitivities to cats, dogs, and cottonwood trees. She had a cat that at the end of July. She has been consistently taking an allergy pill and using Flonase nasal spray. Pulmonology History - History of recurrent bronchitis, typically occurring in fall/winter (August, September) and spring (December, January). - Maintenance therapy with Symbicort, two puffs twice daily. - Recent acute respiratory illness with chest tightness and productive cough, treated with increased albuterol use (every 4 hours) and heif-qyq-uqvabdw medications. [facility] Medical History Benign fibromatous neoplasm of skin Osteopenia Kidney failure Hypertension Chronic kidney disease Surgical History History of surgical removal of skin lesion Family History Mother Alcoholism Father Dementia Hypertension Cardiovascular disease Sister Hypertension Sister Hypertension Social History Household Members: Children and Other Household Members Other:: 2 Grandchildren Housing: House Alcohol intake: current Patient Tobacco Use Status: Never used Tobacco e-Cigarette/Vaping Use: Never Used service: No Current occupational status: retired Cognitive needs: No Hearing needs: No Vision needs: No Review of Systems Narrative Const Denies chills, Denies excessive sweating, Denies fever(s), Denies headache(s) and Denies night sweats Eyes Denies dry eyes, Denies irritation and Denies itchy eyes ENT Reports Normal hearing present, Denies headache(s), Denies nasal congestion, Denies nasal discharge, Denies post nasal drip and Denies sore throat Card Denies chest pain, Denies chest pain at rest, Denies chest pain with activity, Denies claudication, Denies leg edema, Denies dyspnea, Denies dyspnea on exertion, Denies orthopnea and Denies paroxysmal nocturnal dyspnea Resp Denies chest congestion, Denies cough, Denies excessive phlegm production, Denies pain on inspiration, Denies pain with cough, Denies dyspnea, Denies dyspnea on exertion, Denies stridor and Denies wheezing Musc Denies myalgias Neuro Reports Normal hearing present and Denies headache(s) Endo Denies excessive sweating Amador/Lymph Denies lymphadenopathy Aller/Immun Denies itchy eyes, Denies seasonal rhinorrhea and Denies wheezing Physical Exam Exam Exam: Vital Signs: Last Vital Signs Pulse 56 10/04/25 12:57 BP 132/58 L 10/04/25 12:57 Pulse Ox 99 10/04/25 12:57 Oxygen Delivery Method Room Air 10/04/25 12:57 BMI result Body Mass Index 24.2 Const General: cooperative, healthy appearing, comfortable, no acute distress, well developed and alert Orientation/consciousness: patient oriented x3 Limitations: no limitations HEENT Head: Yes normal to inspection, Yes normocephalic and Yes atraumatic Ears: hearing grossly normal bilaterally and external ears normal Eyes General: appearance normal, both eyes and all related structures Eyelids: Yes eyelids normal Sclerae: sclerae normal EOM: EOMs intact bilaterally Neck Neck: Yes normal visual inspection and Yes no lymphadenopathy Lymphatic: no lymphadenopathy noted Chest Chest palpation & inspection: normal inspection of the chest Resp Effort & Inspection: normal respiratory effort, able to speak in complete sentences, no audible wheezes, no cough, no stridor, not tachypneic, no tripod positioning and no use of accessory muscles Auscultation: clear to auscultation bilaterally Cardio Jugular venous distension: no JVD Rate: regular rate Rhythm: regular rhythm Skin Other: warm, dry General skin exam: no rashes or lesions noted Neuro General: patient oriented x3 Cranial nerves: Yes Normal hearing present Cognition (Neuro): normal cognition Gait exam (Neuro): Normal gait present Extrem General: Yes normal to inspection, Yes capillary refill normal, Yes no clubbing, cyanosis or edema and Yes no pedal edema Psych Appearance: grossly normal and well kempt Speech and movement: Normal speech and movement present and Clear speech present Affect: normal affect Attitude: cooperative Thought process: Normal thought process present Thought content: Normal thought content present Insight: Good insight present (Psych) Judgement: Good judgement present (Psych) Assessment & Plan Assessment & Plan (1) Asthma: Code(s): J45.909 - Unspecified asthma, uncomplicated Category: Medical Qualifiers: Asthma complication type: uncomplicated Asthma persistence: persistent Asthma severity: moderate Qualified Code(s): J45.40 - Moderate persistent asthma, uncomplicated (2) Environmental allergies: Code(s): Z91.09 - Other allergy status, other than to drugs and biological substances Category: Medical Plan The patient's asthma is well-controlled on her current regimen. She had a recent exacerbation secondary to an acute illness, which she managed appropriately with her albuterol inhaler. Given her history of symptoms in the spring, the plan is to continue Symbicort two puffs twice daily. It may be possible to reduce the dose to one puff twice daily during the summer. She may stop taking April and using Flonase for now, as it is outside of the main pollen season and she does not have an allergy to dust. She is advised to restart these medications 2-3 weeks before the start of the spring season, around the end of December. If allergy symptoms appear sooner, she should restart the medications as needed. Refills for her Symbicort, albuterol, and Flonase were sent to her pharmacy. Advised a follow-up in six months, or sooner if any issues arise. All questions were answered and patient is in agreement of plan. Patient Instructions - Continue taking Symbicort with two puffs twice a day through the spring season. - You may be able to decrease this to one puff twice a day in the summertime if your symptoms are well-controlled. - Remember to rinse your mouth with water after using your Symbicort inhaler. - You can stop taking your daily allergy pill (April) and nasal spray (Flonase) for now. - You should start taking your allergy medications again around the end of December to prepare for the spring allergy season. - If you notice allergy symptoms starting before then, you should restart the medications. - Refills for your Symbicort, albuterol (rescue inhaler), and Flonase have been sent to your pharmacy. - Please schedule a follow-up appointment in about six months. - Do not hesitate to call the office if you need anything sooner or if your symptoms worsen. Patient was informed and verbally consented to the use of an ambient scribe for clinic note documentation during this visit. Medications: Refilled budesonide-formoterol 80-4.5 mcg/actuation (Symbicort) 2 puffs PO Q12H 10.2 grams 6RF fluticasone propionate 50 mcg/actuation (Allergy Relief (fluticasone)) administer into each nostril 1 spray intranasal BID 16 grams 3RF albuterol sulfate 90 mcg/actuation 1 inh inhalation .every 4 hours PRN 8.5 grams 2RF shortness of breath or wheezing 30 days Coding Level of Care Code Est Pt Level 4 (03331) Diagnoses Moderate persistent asthma without complication J45.40 Asthma complication type: uncomplicated Asthma persistence: persistent Asthma severity: moderate Environmental allergies Z91.09
--- OUTSIDE RECORDS SUMMARY | 2025-10-04 14:27 | XMS_ITS | Patient Health Record ---
Author Organization [facility] Address [address] [place] [address] [address] [place] [address] Care Team Providers Care Nuclear Medicine Medical Director Name Role Phone Luna NGUYEN MD, YESSI Primary Care Provider PIERRE Tong Unavailable [phone] Allergies Allergen (clinical drug ingredient) Drug/Non Drug [...] W/U Status Risk Notes Problem Essential hypertension (11378450) Essential (primary) hypertension (I10) Active confirmed Problem Chronic kidney disease stage 2 (237818208) Chronic kidney disease, stage 2 (mild) (N18.2) Active confirmed Problem COVID-19 (707819570) COVID-19 (U07.1) Active confirmed Plan Of Treatment Pending Test Test Name Order Date MM Digital Screening Mammogram 3D 2021 MM Digital Screening Mammogram 3D 2023 Insurance Providers Payer Name Payer Address Payer Phone Subscriber Number Group Number Insured Name Patient Relationship to Insured Coverage Start Date Coverage End Date [employer] MEDICARE [address] [address] [place] [address] [phone] [id number] PPO ROBERT OBRIEN Self - patient is the insured Program [address] [address] [place] [address] [phone] [id number] ROBERT OBRIEN Self - patient is the insured MEDICARE [address] [facility] [place] [id number] ROBERT OBRIEN Self - patient is the insured Medical (General) History Medical History History ICD Code Essential (primary) hypertension I10 Chronic kidney disease, stage 2 (mild) N 18.2 COVID-19 U07.1 Surgical History Surgery Date(Month/Year) Colonoscopy 12/2020 Hospitalization History Reason Date(Month/Year) 2 Vaginal Deliveries
--- OUTSIDE RECORDS SUMMARY | 2025-10-04 14:27 | XMS_ITS | Data Portability ---
Author Organization [facility]'s [facility], [id number] [facility] HOSP_IP Address [address] [place] [address] Assessment No assessment recorded. Plan of Treatment Reminders Order Date Submit Date Provider Last Modified By Organization Details Last Modified Time Details Appointments None recorded. Lab pap, IG + HPV - 2019 020 DBA_PATCH_ [id number] [facility] ([facility], [address] [place] [address], [address], 03:37:50 pap, IG + HPV 2017 018 DBA_PATCH_ [id number] [facility], [address] [place] [address], [address], 03:36:07 Referral None recorded. Procedures None recorded. Surgeries None recorded. Imaging None recorded. Medication Orders alendronat e 70 mg tablet 2020 021 INTERFACE [id number], [address], [place], [place], [id number], 17:40:09 Patient TargetsNo targets recorded. Patient Instructions Encounter Date Encounter Id Patient Instructions Last Modified By Organization Details Last Modified Time 03/29/2019 [id number] preventing osteoporosis: care instructions [email or web address] Not available 03/29/2019 09:37:26 10/10/2019 [id number] breast self-exam : care instructions [email or web address] Not available 10/10/2019 10:55:12 learning about breast cancer screening ndandrea Not available 10/10/2019 10:55:12 10/11/2020 [id number] breast self-exam : care instructions ndandrea Not available 10/11/2020 12:08:19 learning about breast cancer screening ndandrea Not available 10/11/2020 12:08:19 05/13/2021 [id number] preventing osteoporosis: care instructions [email or web address] Not available 05/13/2021 13:05:47 Reason for Referral None Reported. Results Created Date Observation Date Name Description Value Unit Range Abnormal Flag Note LastModifiedBy Organization Detail LastModifiedTime 09/23/20 18 09/24/2018 pap, IG + HPV interpretati on NIL NEGAT DEANNE FOR INTRA EPITH ELIAL LESIO N AND MALHENNA SERGEY . Not Available [facility] ([facility]) [address] [place], [address], 09/27/2018 06:06:55 09/23/20 18 09/24/2018 pap, IG + HPV category: NIL Negat deanne for Intra epith elial Lesio n Not Available [facility] ([facility]) [address] [place], [address], 09/27/2018 06:06:55 09/23/20 18 09/24/2018 pap, IG + HPV adequacy: ENDO Satis facto ry for evalu ation . Endoc ervic al and/o r squam ous metap lasti c cells (endo cervi iraida compo nent) are prese nt. Not Available [facility] ([facility]) [address] [place], [address], 09/27/2018 06:06:55 09/23/20 18 09/24/2018 pap, IG + HPV clinician provided ICD10: Sherman gonzalez Z12.4 Not Available [facility] ([facility]) [address] [place], [address], 09/27/2018 06:06:55 09/23/20 18 09/24/2018 pap, IG + HPV performed by: Sherman mckeon, Cytot echno logis t (ASCP ) Not Available [facility] ([facility]) [address] [facility], [place], [address], 09/27/2018 06:06:55 09/23/20 18 09/24/2018 pap, IG + HPV cytology history: Commen t Date LCA Speci men ID PAP Test Resul t HPV Test Resul t 09/17 348-G 74-00 11-0 19386 5 NIL 15133 1 N 09/15 347-G 74-00 40-0 55677 5 NIL 55619 1 P 09/15 347-G 74-00 40-0 22630 1 N 09/15 347-G 74-00 40-0 70554 2 N 08/27 327-G 74-00 43-0 79113 5 NIL 71010 1 N 08/13 317-G 74-00 12-0 22405 3 NIL 22984 3 N 07/24 293-G 74-00 34-0 84818 4 NIL Not Available [facility] ([facility]) [address] [facility], [place], [address], 09/27/2018 06:06:55 09/23/20 18 09/24/2018 pap, IG [...] do occur . Not Available [facility] ([facility]) [address] [facility], [place], [address], 09/27/2018 06:06:55 09/23/20 18 09/24/2018 pap, IG + HPV test methodology: Commen t This liqui d based ThinP rep(R ) pap test was scree ezequiel with the use of an image guide d syste m. Not Available [facility] ([facility]) [address] [facility], [place], [address], 09/27/2018 06:06:55 09/23/20 18 09/26/2018 pap, IG + HPV HPV aptima Negati ve negati ve This test detec ts fourt een high- risk HPV types (16/1 8/31/ 33/35 /39/4 5/ 51/52 /56/5 8/59/ 66/68 ) witho ut diffe renti ation . Not Available [facility] ([facility]) [address] [facility], [place], [address], 09/27/2018 06:06:55 10/10/19 20 10/11/2019 pap, IG + HPV interpretati on NILM NEGAT DEANNE FOR INTRA EPITH ELIAL LESIO N OR MALIG SERGEY . Not Available [facility] ([facility]) [address] [facility], [place], [address], 10/12/2019 07:38:38 10/10/19 20 10/11/2019 pap, IG + HPV category: NIL Negat deanne for Intra epith elial Lesio n Not Available [facility] ([facility]) [address] [facility], [place], [address], 10/12/2019 07:38:38 10/10/19 20 10/11/2019 pap, IG + HPV adequacy: ENDO Satis facto ry for evalu ation . Endoc ervic al and/o r squam ous metap lasti c cells (endo cervi iraida compo nent) are prese nt. Not Available [facility] ([facility]) [address] [facility], [place], [address], 10/12/2019 07:38:38 10/10/1910/11/2019 pap, IG + HPV clinician provided ICD10: COMMEN T R87.8 10 Not Available [facility] ([facility]) [address] [facility], [place], [address], 10/12/2019 07:38:38 10/10/19 20 10/11/2019 pap, IG + HPV performed by: Paul Vann (ASCP ) Not Available [facility] ([facility]) [address] [place], [address], 10/12/2019 07:38:38 10/10/19 20 10/11/2019 pap, IG + HPV cytology history: COMMDENIS T Date LCA Speci men ID PAP Test Resul t HPV Test Resul t 09/23 354-G 74-00 52-0 30292 5 NIL 36741 1 N 09/17 348-G 74-00 11-0 15811 5 NIL 93700 1 N 09/15 347-G 74-00 40-0 80882 5 NIL 12021 1 P 09/15 347-G 74-00 40-0 88324 1 N 09/15 347-G 74-00 40-0 14556 2 N 08/27 327-G 74-00 43-0 07628 5 NIL 21783 1 N 08/13 317-G 74-00 12-0 91943 3 NIL 41703 3 N Not Available [facility] ([facility]) [address] [facility], [place], [address], 10/12/2019 07:38:38 10/10/19 20 10/11/2019 pap, IG + HPV note: SHERMAN Gonzalez The Pap smear is a scree ross [...] do occur . Not Available [facility] ([facility]) [address] [facility], [place], [address], 10/12/2019 07:38:38 10/10/1910/11/2019 pap, IG + HPV test methodology: COMMEN T This liqui d based ThinP rep(R ) pap test was danyelle nieves with the use of an image guide brigida angeles Not Available [facility] ([facility]) [address] [facility], [place], [address], 10/12/2019 07:38:38 10/10/19 20 10/12/2019 pap, IG + HPV HPV aptima NEGATI VE negati ve This nucle ic acid ampli ficat ion test detec ts fourt een high- risk HPV types (16,1 8,31, 33,35 ,39,4 5,51, 52,56 ,58,5 9,66, 68) witho ut diffe renti ation . Not Available [facility] ([facility]) [address] [facility], [place], [address], 10/12/2019 07:38:38 09/29/20 18 09/23/2018 MAMMO , scree ross, tomos ynthe sis, bilat eral No observ ation record ed. [email or web address] [id number] [address] [facility] [place], [address], 10/06/2018 08:37:54 09/29/20 18 09/23/2018 MAMMO , scree ross, tomos ynthe sis, bilat eral No observ ation record ed. [email or web address] [address] [facility] [place], [address], 09/29/2018 14:56:08 03/01/20 19 03/01/2019 DEXA, axial skele ton No observ ation record ed. [email or web address] Not Available 03/28 13:47:06 10/11/19 20 10/10/2019 MAMMO , scree ross, tomos ynthe sis, bilat eral No observ ation record ed. [email or web address] [id number] [address] [place], [address], 10/12/2019 15:03:53 10/11/19 20 10/10/2019 MAMMO , scree ross, tomos ynthe sis, bilat eral No observ ation record ed. [email or web address] [address], [place], [address], 10/11/2019 15:53:13 10/16/19 21 10/16/2020 MAMMO , scree ross, tomos ynthe sis, bilat eral No observ ation record ed. [email or web address] t Mammo_[address], [place], [address], 10/17/2020 11:45:36 10/16/19 21 10/16/2020 MAMMO , scree ross, tomos ynthe sis, bilat eral No observ ation record ed. [email or web address] [id number] t Mammo_[address], [place], [address], 10/17/2020 11:52:06 03/05/20 21 03/05/2021 DEXA, axial skele ton No observ ation record ed. [email or web address] In-House Results For Internal Use Only, Do Not Delete/merge, [id number] 05/13/2021 13:23:37 Result Notes Documentation Provider Name [...] in 2 years. Nidia Loyola (TERMED) null, [facility] 03/28/2019 13:47:06 Dexa, Axial Skeleton : Bone density Bone Density Interpretation: osteopenia Lowest T-score: -2.1 Femur neck Percentage of change from last bone density: 6% increase Frax Score: Not applicable due to prior/current medical therapy Recommended treatment: Optimize dietary calcium and vitamin D intake to 6654-0142 mg daily, Weight-bearing exercise for 30 minutes 3 times weekly, This is an adequate study. Provider Reading Study: Dr. Bairon Andres Followup planned: Repeat DEXA 2 years BAIRON WESTON MD [address],[place], [address], [facility] 05/13/2021 13:23:37 Problems Name Problem SNOMED Code Status Onset Date Resolution Date Notes Provider Name and Address Organization Details Recorded Time Seasonal allergic rhinitis 242223010 Active BAIRON WESTON MD [address],[facility] [address], [place], [address] , [facility] 6 08:15:47 Hypertens deanne disorder 46872930 Active BAIRON WESTON MD [address], [place], [address] , [facility] 6 08:22:19 Osteopeni a 742050010 Active 201003/05/21 COBG DEXA - OSTEOPENIA - Tlumbarspi ne=-1.4 , Tneckoffem ur=-2.1 , Ttotalhip= -0.5 (When this study is compared to the study done 03/01/19 there is a statistica lly significan t increase of +6.7% in the left hip) FRAX On bisphospho nates (started in 02/2015) BAIRON WESTON MD [address],[place], [address] , [facility] 1 16:37:42 HPV - Human papilloma virus test positive Active 2015 Neg Mayte Desir null, [facility] 6 10:10:09 Problem Notes None recorded. Procedures Surgical History Date Name Laterality Status Provider Name and Address Organization Details Recorded Time 10/11/19 21 Date of Last Mammogram completed Kyung Garcia (TERMED) [facility] 10/11/2020 10:48:11 10/10/19 20 Date of Last Pap Smear completed Cinda Castillo(TE RM) [facility] 10/10/2020 10:11:02 08/22/20 14 completed Mary Ann Calderon (TERMED) [facility] 08/22/2014 09:10:09 10/05/19 13 Date of Last Colonoscopy completed Carli Cole [facility] 09/23/2018 10:19:56 10/05/19 12 GI- Colonoscopy completed BAIRON WESTON MD [address] [place] [address],[address], [place], [address] 08/22/2014 09:52:40 08/06/20 11 completed Ale Angelo (TERMED) [facility] 08/21/2014 11:37:54 Surgery-other completed Ale villegas (TERMED) [facility] 08/21/2014 11:37:53 ENT-Adenoidecto my/Tonsillectom y completed Ale Angelo (TERMED) [facility] 08/21/2014 11:37:53 Imaging Results None recorded. Procedure Notes None recorded. Medical Equipment None Reported. Allergies Allergen ID Allergen Name Allergen Category Reaction Reaction Severity Criticality Documentation Date Start Date Code Code System Note Provider Name and Address Organization Details Recorded Time 660596 Cozaar medicatio n Not available Not available Not available 08/22/2014 53358 8 RxNorm Mary Ann Calderon (TERMED) [facility] 4 09:10:09 Medications Name [...] Available Not Available Vitals Date Recorded Body height Body mass index (BMI) Body weight Heart rate Systolic And Diastolic Provider Name and Address Organization Details Last Updated DateTime 10/10/2019 157.86 cm 26 kg/m2 73117.71 g 88 /min 131/80 mm[Hg] Renu Walter TERMED [facility] 10/10/2019 10:06:14 Date Recorded Body weight Body mass index (BMI) Body height Heart rate Body temperature Systolic And Diastolic Provider Name and Address Organization Details Last Updated DateTime 1 13421.5 2 g 25.7 kg/m2 157.86 cm 86 /min 98.1 [degF] 137/87 mm[Hg] Kyung Garcia (TERMED) [facility] 1 11:33:02 Date Recorded Body height Body mass index (BMI) Body weight Heart rate Systolic And Diastolic Provider Name and Address Organization Details Last Updated DateTime 03/29/2019 157.86 cm 26.2 kg/m2 84486.02 g 67 /min 157/89 mm[Hg] Cindajose cruz Castillo (TERM) [facility] 03/29/2019 09:03:50 Date Recorded Body height Body mass index (BMI) Body weight Body temperature Heart rate Systolic And Diastolic Provider Name and Address Organization Details Last Updated DateTime 1 157.86 cm 26 kg/m2 30680.7 1 g 98.6 [degF] 74 /min 118/76 mm[Hg] Carli Cole [facility] 1 12:57:51 Date Recorded Body weight Body mass index (BMI) Body height Heart rate Systolic And Diastolic Systolic And Diastolic Provider Name and Address Organization Details Last Updated DateTime 8 69598.5 2 g 25.7 kg/m2 157.86 cm 67 /min 176/73 mm[Hg] 180/80 mm[Hg] Carli Cole [facility] 8 10:18:01 Social History Question Answer Notes LastModified by Organizat ion Details LastModified Time Tobacco Smoking Status Former Smoker teenager Micheline Simeon (TERMED) [facility] [place], [facility] 09/15/2016 08:50:55 Do You Have An Advance Directive? Yes [email or web address] Information not available 09/23/2018 Is Blood Transfusion Acceptable In An Emergency? Yes [email or web address] Information not available 09/23/2018 What Is Your Level Of Caffeine Consumption? Moderate 1 Cup Coffee Daily, 1 Soda Every Other Day Information not available 09/23/2018 What Type Of Diet Are You Following? REGULAR Eats Healthy [email or web address] Information not available 09/23/2018 Which Illicit Or Recreational Drugs Have You Used? None [email or web address] Information not available 08/21/2014 How Many Days In The Past Year Have You Had A Heavy Drinking Consumption (4+ Female, 5+ Male)? 0 Information not available 09/15/2016 History Of Domestic Violence No [email or web address] Information not available 08/21/[address] [facility] [email or web address] Informat ion not available 09/23/2018 Ethnic Background [email or web address] Information not available 09/23/2018 Marital Status Passed 09/11/11 - Battled Bone Cancer [email or web address] Information not available 08/21/2014 What Was The Date Of Your Most Recent Tobacco Screening? 10/11/2020 [email or web address] Information not available 10/11/2020 Performs Monthly Self-breast Exam? Yes [email or web address] Information not available 09/23/2018 Seat Belts Used Routinely Yes [email or web address] Information not available 08/22/2014 Are You Sexually Active? No Information not available 09/15/2016 Are You Passively Exposed To Smoke? No [email or web address] Information not available 09/23/2018 How Much Tobacco Do You Smoke? No [email or web address] Information not available 08/21/2014 General Stress Level Low [email or web address] Information not available 08/22/2014 How Many Years Have You Smoked Tobacco? 0 [email or web address] Information not available 08/21/2014 Do You Have [...] is your level of alcohol consumption? None [email or web address] Information not available 08/21/2014 Are you currently employed? 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 [email or web address] Information not available 08/22/2014 What is your exercise level? Moderate Walks 30 minutes daily [email or web address] Information not available 08/21/2014 Mental Status None [...] mL dose 12/06/2020 completed BAIRON WESTON MD [address] [place] [address],[facility], [place], [address], [facility] 05/13/2021 13:25:03 COVID-19, mRNA, LNP-S, PF, 30 mcg/0.3 mL dose 12/26/2020 completed BAIRON WESTON MD [address] [place] [address],[facility] [address], [place], [address], [facility] 05/13/2021 13:25:15 Past Encounters Encounter ID Performer Location Encounter Start Date Encounter Closed Date Diagnosis/Indication Diagnosis SNOMED-CT Code Diagnosis ICD10 Code Diagnosis IMO Codes Diagnosis Note [id number] BAIRON WESTON MD [id number] [address] [place] [address] 08/22/2014 08:07:29 08/22/2014 10:10:00 Gynecologic examination 03398230 Cervical cancer screening guidelines discussed with pt. [...] regular aerobic and weight bearing exercise. Osteopenia 915145035 COBG 2010 >>> pt will recheck in 2014 Ernesto. [id number] BAIRON WESTON MD [id number] [address] [place] [address] 04/13/2015 09:36:01 04/13/2015 10:43:06 Osteopenia 613750172 2010 >>> 02/19/15 COBG Dexa Tneck=-2.3 , Ttotalhip= -1.1 (7.2%decre ase since 2010), Tlumbarspi ne=-2.5 (9.7% decrease since 2010) Patient has osteopenia . Reviewed T scores in general and patient's T scores from her most recent DEXA scan and all prior scans. Reviewed risk of fracture using WHO FRAX tool. Reviewed importance of Vitamin D intake (1000 IU po daily) and Calcium intake (4836-4206 mg po daily in divided doses throughout [...] will return in 2 months for recheck. [id number] BAIRON WESTON MD [id number] [address] [place] [address] 06/18/2015 08:53:29 06/18/2015 10:08:45 Osteopenia 067272346 2010 >>> 02/19/15 COBG Dexa Tneck=-2.3 , [...] (1000 IU po daily) and Calcium intake (5705-9685 mg po daily in divided doses throughout [...] , atypical femur fracture, jaw surgery dangers. [id number] BAIRON WESTON MD [id number] [address] [place] [address] 08/27/2015 08:05:24 08/27/2015 09:58:04 Gynecologic examination 84754869 Z01.419 Z01.411 Cervical cancer screening guidelines discussed [...] exercise. Screening for malignant neoplasm of cervix 385983194 Z12.4 Z11.51 I reviewed the current cervical cancer screening recommenda tions with the patient today. Osteopenia 048024977 M85 .80 2010 >>> 02/19/15 COBG Dexa Tneck=-2.3 , Ttotalhip= -1.1 (7.2%decre ase since 2010), Tlumbarspi ne=-2.5 (9.7% decrease since 2010) >>> BONE DENSITY RESULTS 02/19/15 Tneck=-2.3 Ttotalhip= -1.1, Tlumbarspi ne=-2.5 (7% decrease and 9% decrease from 08/15) FRAX 10% and 1.6%.>>>> Started Fosamax. Patient has osteopenia . Reviewed importance of Vitamin D intake (1000 IU po daily) and Calcium intake (7007-6158 mg po daily in divided doses throughout [...] , atypical femur fracture, jaw surgery dangers. [id number] BAIRON WESTON MD [id number] [address] [place] [address] 04/29/2016 07:45:48 04/29/2016 08:25:13 Osteopenia 225085403 M85.80 She is on Fosamax and reports [...] (1000 IU po daily) and Calcium intake (1766-7922 mg po daily in divided doses throughout [...] fracture, jaw surgery dangers. Hypertensive disorder 38 065171 I10 Pt stopped her antihypert ensive medication s 2 years ago because she reports her physician took her off of them (Dr Price). I reviewed that these numbers today are unacceptab ly high. She now sees the providers at [facility]. She reports she will notify them immediatel y. I have suggested she go over this morning and see if they can see her today. I will provide her with a copy of this note. She reports she takes the BP at home and she reports that her diastolics at home are never over 78, [id number] BAIRON WESTON MD [id number] [address] [place] [address] 09/15/2016 07:53:47 09/15/2016 12:08:47 Gynecologic examination 76232904 Z01.411 Z01.419 Mammograph y planned today. Reviewed [...] needed. Screening for malignant neoplasm of cervix 340061723 Z12.4 Z11.51 Cervical cancer screening guidelines discussed with patient. Reviewed that if testing has been normal we can also test for HPV with cervical cytology and if both are negative, in some instances can repeat every 3 years.eulogio . Screening for malignant neoplasm of breast 586291371 Z12.39 I reviewed the current breast cancer screening recommenda tions with the patient today. Dietary mian jorge surveillance 521940755 Z71.3 Discussed diet and exercise at length with patient. Reviewed general informatio n about carbohydra jerzy, proteins and fats with patient. Discussed sample diets. Reviewed options to assist with nutrition management including nutrition referrals, weight loss programs and apps like [employer]. Reviewed internet sites which educate regarding nutrition. Discussed importance of exercises which include muscle building and those that help with aerobic exercises. Discussed current recommenda tions regarding exercise including the suggestion that individual s get 150 minutes of exercise weekly. Body mass index 25-29 - overweight 072991828 Z68.25 Osteopenia 417553662 M85 .80 She is on Fosamax and [...] (1000 IU po daily) and Calcium intake (3179-0317 mg po daily in divided doses throughout [...] , atypical femur fracture, jaw surgery dangers. [id number] BAIRON WESTON MD [id number] [address] [place] [address] 10/09/2016 08:45:48 10/09/2016 09:30:26 HPV - Human papillomavirus test positive 739538239 R87.810 09/15/16 HPV+ (16 & 18 negative), [...] evaluation , a cervical cancer can develop. [id number] BAIRON WESTON MD [id number] [address] [place] [address] 02/24/2017 08:37:07 02/24/2017 10:46:53 Osteopenia 322716907 M85.852 M85.88 02/24/17 COBG DEXA - OSTEOPENIA [...] (1000 IU po daily) and Calcium intake (4008-2762 mg po daily in divided doses throughout [...] on the same machine q 2 years. [id number] ADITYA HINES MD [id number] [address] [place] [address] 09/17/2017 09:40:52 09/17/2017 10:57:54 Gynecologic examination 13767719 Z01.411 Z01.419 Mammograph y done today. Reviewed [...] y. Screening for malignant neoplasm of cervix 541159707 Z12.4 Z11.51 Cervical cancer screening guidelines discussed with patient. Reviewed that if testing has been normal we can also test for HPV with cervical cytology and if both are negative, in some instances can repeat every 3 years.eulogio . Screening for malignant neoplasm of breast 034911326 Z12.39 I reviewed the current breast cancer screening recommenda tions with the patient today. Dietary mian jorge surveillance 167756161 Z71.3 Discussed diet and exercise at length with patient. Reviewed general informatio n about carbohydra jerzy, proteins and fats with patient. Discussed sample diets. Reviewed options to assist with nutrition management including nutrition referrals, weight loss programs and apps like [employer]. Reviewed internet sites which educate regarding nutrition. Discussed importance of exercises which include muscle building and those that help with aerobic exercises. Discussed current recommenda tions regarding exercise including the suggestion that individual s get 150 minutes of exercise weekly. Body mass index 25-29 - overweight 784439347 Z68.25 [id number] ADITYA HINES MD [id number] [address] [employer] [place] [address] 09/23/2018 09:13:34 09/23/2018 10:56:12 Gynecologic examination 70845213 Z01.419 Z01.411 (1) Staying healthy sheet provided. [...] concerns. Screening for malignant neoplasm of cervix 420208840 Z12.4 Cervical cancer screening guidelines discussed with patient. Reviewed that if testing has been normal we can also test for HPV with cervical cytology and if both are negative, in some instances can repeat every 3 years.eulogio . Finding of body mass index 592605776 Z68.25 25.7 HPV - Ora n papillomavirus test positive 610702693 R87.000 [id number] ADITYA HINES MD [id number] [address] [place] [address] 03/29/2019 08:40:43 03/29/2019 09:42:14 Osteopenia 300400608 M85.852 M85.88 Patient has osteopenia . Reviewed T scores in general and patient's T scores from her most recent DEXA scan and all prior scans. Reviewed risk of fracture using WHO FRAX tool. Reviewed importance of Vitamin D intake (1000 IU po daily) and Calcium intake (9184-1698 mg po daily in divided doses throughout [...] has been on it for 4 years. [id number] BAIRON WESTON MD [id number]_[id number] [address] [place] [address] 10/10/2019 09:05:47 10/10/2019 10:59:30 Gynecologic examination [id number] Z01.411 Mammograph y planned today. Reviewed importance [...] needed. Screening for malignant neoplasm of breast [id number] Z12.39 I reviewed the current breast cancer screening recommenda tions with the patient today. Dietary mian jorge surveillance [id number] Z71.3 Discussed diet and exercise at length [...] week. Body mass index 25-29 - overweight 937568156 Z68.26 26 Screening for osteoporosis 223405879 Z13.820 Human yuliana llomavirus deoxyribonucleic acid detected, high risk on cervical specimen [id number] R87.810 I reviewed the current cervical cancer screening recommenda tions with the patient today. Administra tion of influenza vaccine 30848010 Z23 Patient is advised regarding influenza risks. Discussed vaccine risks and benefits. Reviewed side effects. Pt given the Vaccine Informatio n Statement. Questions answered. 10/10/2019 DECLINES [id number] BAIRON WESTON MD [id number] [address] [place] [address] 10/11/2020 10:36:03 10/11/2020 12:10:22 Gynecologic examination [id number] Z01.411 Mammograph y planned today. Reviewed importance [...] needed. Screening for malignant neoplasm of cervix 290355375 Z12.4 Z11.51 I reviewed the current cervical cancer screening recommenda tions with the patient today. Screening for malignant neoplasm of breast 117101918 Z12.39 I reviewed the current breast cancer screening recommenda tions with the patient today. Dietary ma ania surveillance 472369844 Z71.3 Discussed diet and exercise at length [...] week. Body mass index 25-29 - overweight 012248156 Z68.29 26 Screening for osteoporosis 998881650 Z13.820 Osteopenia 327162489 M85 .852 M85.88 02/24/17 COBG DEXA - [...] (1000 IU po daily) and Calcium intake (4590-2657 mg po daily in divided doses throughout [...] the same machine q 2 years. Stress 94670638 Z73.3 Finding re lating to psychosocial functioning 239601979 Z65.9 This patient is feeling the effects [...] meditation , music, prayer, guided imagery etc... [id number] BAIRON WESTON MD [id number] [address] [place] [address] 05/13/2021 12:21:23 05/13/2021 13:26:39 Osteopenia [id number] M85.852 M85.88 03/05/21 COBG DEXA - OSTEOPENIA [...] (1000 IU po daily) and Calcium intake (7641-0092 mg po daily in divided doses throughout [...] ID Guarantor Name 05/12/2021 2 () Nilda Spivey [id number] Nilda Spivey 05/13/2021 1 [employer] [id number] Nilda Spivey [id number] Nilda Spivey Notes Date Note Type Note Provider Name and Address Organization Details Recorded Time 8 text/html Annual Postmenopausal ([facility])Reported by PatientHPIFor patient relationship to practice, patient reportsestablished patient. For current medical history, patient reportsactive medical problems stable. For relevant family history, patient reportsno family history of breast cancer,no family history of ovarian cancer,no family history of uterine cancer,no family history of colon cancer, andno family history of blood clots/dvt. For menopausal symptoms, patient reportsnot present. For hrt, patient reportsnever on hrt. For vaginal bleeding, patient reportsno. For sexually active, patient reportsno: no current relationship. For sti screen, patient reportsdeclines. For health/prevention, patient reportsexercise: yes,vitamin d: yes,adequate calcium intake: yes,breast self exam: yes,seat belt use: yes,safe sex: yes, andtobacco use: yes. For mammogram, patient ebjypdben-oe-xixp. For pap smear +/- hpv cotesting, patient mlerqcmch-wi-qjsf. For thyroid/lipid screening, patient geagrumtc-on-gwnf. For colonoscopy, patient ynbcynrgp-vm-pssw. For bone density study, patient rdbxeqjlf-df-gcfj. For patient has, [facility] physician: yes.The patient presents today for her annual exam. Her BP is elevated in the office today. She states that she was placed on medication a year ago, but it made her diastolic too low, so she stopped taking it. She states that she tracks it at home, and it stays around 125-135/75-85. KRISTAL MORRISON NP [address], [place], [address], [facility] 09/23/2018 10:54:21 9 text/html Osteoporosis/Osteopenia ([facility])Reported by PatientHPIFor * severity, patient reportsincreased bmd.Patient presents today to review BD results. KRISTAL MORRISON NP [address] [facility] [employer],[address], [place], [address], [facility] 03/29/2019 09:37:31 0 text/html Annual Postmenopausal ([facility])Reported by PatientHPIFor patient relationship to practice, patient reportsestablished patient. For current medical history, patient reportsno active medical problemsandno recent surgeries or hospitalizations. For relevant family history, patient reportsno family history of breast cancer,no family history of ovarian cancer,no family history of uterine cancer,no family history of colon cancer, andno family history of blood clots/dvt. For menopausal symptoms, patient reportsnot present. For hrt, patient reportsnever on hrtandnot currently on hrt. For vaginal bleeding, patient reportsno. For sexually active, patient reportsno: __. For sti screen, patient reportsdeclines. For health/prevention, patient reportsexercise: yes,vitamin d: yes,adequate calcium intake: yes,breast self exam: yes,seat belt use: yes, andtobacco use: no. For mammogram, patient tfakrierc-eu-ohkm. For pap smear +/- hpv cotesting, patient gwbskfgen-yj-lsix. For thyroid/lipid screening, patient tvxlvdidw-aw-kcfj. For colonoscopy, patient rofyycgnu-ie-xoqo. For bone density study, patient acmsvoujt-ft-rpma. For patient has, patient reportsprimary care physician: yes,cuff presser: yes, anddermatologist: no. BAIRON WESTON MD [address] [place] [address],[address], [place], [address] 10/10/2019 10:56:11 1 text/html Annual Postmenopausal ([facility])Reported by PatientHPIFor patient relationship to practice, patient reportsestablished patient. For current medical history, patient reportsno active medical problemsandno recent surgeries or hospitalizations. For relevant family history, patient reportsno family history of breast cancer,no family history of ovarian cancer,no family history of uterine cancer,no family history of colon cancer, andno family history of blood clots/dvt. For menopausal symptoms, patient reportsnot present. For hrt, patient reportsnever on hrtandnot currently on hrt. For vaginal bleeding, patient reportsno. For sexually active, patient reportsno: __. For sti screen, patient reportsdeclines. For health/prevention, patient reportsexercise: yes,vitamin d: yes,adequate calcium intake: yes,breast self exam: yes,seat belt use: yes, andtobacco use: no. For mammogram, patient nforxubdb-ya-udtu. For pap smear +/- hpv cotesting, patient tiabwnkln-kc-nngz. For thyroid/lipid screening, patient cxvjmkldt-ts-seaj. For colonoscopy, patient wntesnpla-to-ptkq. For bone density study, patient rqdmbjyje-xs-ustd. For patient has, patient reportsprimary care physician: yes,cuff presser: yes, anddermatologist: no.Pt. presents today for her annual exam and mammo. Pt. has no concerns today. Have you been exposed to anyone positive for COVID, have any pending COVID test or any COVID symptoms? No BAIRON WESTON MD [address], [place], [address], [facility] 10/11/2020 17:40:06 1 text/html Osteoporosis/Osteopenia ([facility])Reported by PatientHPIFor * location, patient reportstotal hip left,femoral neck left, andlumbar spine __. For * quality, patient reportsosteopenia lumbar spine (and hip). For year of diagnosis, patient [id number]. For * severity, patient reportslowest t-score -2.1. For * context, patient reportspostmenopausal. For diagnostic testing, patient reportsother:dexa. For risk factors, patient reportsage:65andpostmen opausal.TreatmentsFor current, patient reportsweight bearing exercises no change,calcium supplements, andalendronate (fosamax). For previous treatments, patient reportsweight bearing exercises no change,calcium supplements, andalendronate (fosamax). BAIRON WESTON MD [address], [place], [address], [facility] 05/13/2021 13:26:23 OBGyn Episode Ob Episode Information Episode Created Date Number of Fetuses Patient Bloodtype Patient rh Status Prepregnancy Weight lbs Domestic Partner Domestic Partner Phone Father Name Auricular Therapist Status 08/21/20 14 1 CLOSED Fetus Data First Name Last Name Admitted to NICU Weight (g) Sex Living Outcome Pediatric Complications Fetus ID Race Codes Race Delivery Type 3090.09 55 F [id number] Amanuel Calculation Initial Amanuel Date Initial Exam [...] Domestic Partner Domestic Partner Phone Father Name Auricular Therapist Status 08/21/20 14 1 CLOSED Fetus Data First Name Last Name Admitted to NICU Weight (g) Sex Living Outcome Pediatric Complications Fetus ID Race Codes Race Delivery Type 3486.98 85 M [id number] Amanuel Calculation Initial Amanuel Date Initial Exam [...]
--- OUTSIDE RECORDS SUMMARY | 2025-10-04 14:27 | XMS_ITS | Clinical Summary ---
Author Organization [facility] Facility Address [address] [address] Care Team Providers Care Scouring Machine Tender Name Role Phone Hillary Aguayo MD Primary Care Provider [phone] Allergies Active Allergy Reactions Criticality Noted Date [...] age to complete this topic Insurance [employer] Care Teams Scouring Machine Tender Relationship Specialty Start Date End Date Hillary Aguayo MD [address] [place] [id number] PCP - General Internal Medicine 12/20/21
== END 2025-10-04 13:13 | disposition home or self-care (01) ==
LOC: HO.HPSW 12:53
PROVIDERS: PCP Internal Medicine; Visit Provider Nurse Practitioner Family
DX: J45.40 Moderate persistent asthma, uncomplicated (principal); Z91.09 Other allergy status, other than to drugs and biological substances
CPT/HCPCS: 99214